=== PATIENT | female | born 2000 | race Hispanic/Latino ===

== ENCOUNTER 2019-05-01 20:06 | Emergency (ER) | payer OTHER ==
[2019-05-01 21:08] LABS: Absolute Lymphocytes (CBC) 2.8 K/uL (0.7-4.9); Basophils % 0.4 % (0-1.3); Hematocrit 36.2 % (36.0-45.0); Lymphocytes % 25.6 % (15.3-44.8); MPV 8.1 fL (7.6-11.3); RBC Red Blood Cell Count 4.15 M/uL (3.86-4.86)
[2019-05-01 21:42] LABS: Urine Blood TRACE (NEG); Urine Glucose NEGATIVE (NEG); Urine Protein NEGATIVE (NEG)
--- NOTE | 2019-05-01 21:51 | RAD REPORT ---
EXAM DESCRIPTION: US - Transvaginal OB - 05/01/2019 9:42 pm CLINICAL HISTORY: Abd cramping, ;Vaginal bleeding COMPARISON: No comparisons FINDINGS: A single gestational sac is seen within the uterus. The shape of the sac is within normal limits for gestational age. Mean sac diameter is 11 mm corresponding to 6 weeks 0 days gestational ag e. No yolk sac or embryo seen within the gestational sac. The placenta is not yet developed due to early gestational age. The maternal adnexa are within normal limits. Both ovaries are obscured by bowel gas. IMPRESSION: Six week 0 day gestational sac is seen without visualization of an embryo or yolk sac. T his could indicate early IUP versus blighted ovum. Serial HCG levels and follow-up sonography in 7-10 days is recommended.
[2019-05-01 22:02] LABS: BUN Blood Urea Nitrogen 15 mg/dL (7-18); Bicarbonate 25 mmol/L (21-32); Glucose Level 92 mg/dL (74-106); HCG, Quantitative 24152 mIU/mL (1-3); Potassium 3.7 mmol/L (3.5-5.1); Sodium Level 137 mmol/L (136-145)
--- NOTE | 2019-05-01 22:45 | EDPHYS ---
Physician Documentation [facility] Name: Marquita Jauregui Age: 18 yrs Sex: Female : 2000 Arrival Date: 05/01/2019 Time: 20:11 Bed 30 Private MD: ED Physician Jabier Price HPI: 05/01 20:59 This 18 yrs old Female presents to ER via Ambulatory with complaints of PAIN jr8 W/ -POSSIBLE 8 WKS. 20:59 The patient presents to the emergency department with abdominal pain, of the suprapubic jr8 area, that started today, described as crampy, vaginal bleeding, described as spotting. The estimated gestational age is 9 weeks. course: care: none, Leakage of Fluid: none appreciated, Ultrasound: the patient has not had an ultrasound, Risk/complications: no obvious risks or complications are appreciated. Previous pregnancies: the patient has never been . Associated signs and symptoms: The patient has no apparent associated signs or symptoms. The patient has not experienced similar symptoms in the past. The patient has not recently seen a physician. Stated that she noticed some yellow discharge today. Had one bout of spotting that now has resolved. Continues to have suprapubic pain. Denies urinary symptoms. 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 - Social history:: Smoking status: Patient/guardian denies using tobacco, Patient/guardian denies using alcohol, street drugs, IV drugs. - Ebola Screening: : No symptoms or risks identified at this time. ROS: 20:59 Eyes: Negative for injury, pain, redness, and discharge, ENT: Negative for injury, jr8 pain, and discharge, Neck: Negative for injury, pain, and swelling, Cardiovascular: Negative for chest pain, palpitations, and edema, Respiratory: Negative for shortness of breath, cough, wheezing, and pleuritic chest pain, Back: Negative for injury and pain, MS/Extremity: Negative for injury and deformity, Skin: Negative for injury, rash, and discoloration, Neuro: Negative for headache, weakness, numbness, tingling, and seizure. 20:59 Abdomen/GI: Positive for abdominal pain, abdominal cramps, Negative for nausea, vomiting, and diarrhea, abdominal distension. 20:59 : Positive for vaginal bleeding, vaginal discharge, Negative for vaginal itching. Exam: 20:59 Eyes: Pupils equal round and reactive to light, extra-ocular motions intact. Lids and jr8 lashes normal. Conjunctiva and sclera are non-icteric and not injected. Cornea within normal limits. Periorbital areas with no swelling, redness, or edema. ENT: Nares patent. No nasal discharge, no septal abnormalities noted. Tympanic membranes are normal and external auditory canals are clear. Oropharynx with no redness, swelling, or masses, exudates, or evidence of obstruction, uvula midline. Mucous membranes moist. Neck: Trachea midline, no thyromegaly or masses palpated, and no cervical lymphadenopathy. Supple, full range of motion without nuchal rigidity, or vertebral point tenderness. No Meningismus. Cardiovascular: Regular rate and rhythm with a normal S1 and S2. No gallops, murmurs, or rubs. Normal PMI, no JVD. No pulse deficits. Respiratory: Lungs have equal breath sounds bilaterally, clear to auscultation and percussion. No rales, rhonchi or wheezes noted. No increased work of breathing, no retractions or nasal flaring. Back: No spinal tenderness. No costovertebral tenderness. Full range of motion. Skin: Warm, dry with normal turgor. Normal color with no rashes, no lesions, and no evidence of cellulitis. MS/ Extremity: Pulses equal, no cyanosis. Neurovascular intact. Full, normal range of motion. Neuro: Awake and alert, GCS 15, oriented to person, place, time, and situation. Cranial nerves II-XII grossly intact. Motor strength 5/5 in all extremities. Sensory grossly intact. Cerebellar exam normal. Normal gait. 20:59 Abdomen/GI: Inspection: abdomen appears normal, Bowel sounds: active, all quadrants, Palpation: soft, in all quadrants, mild abdominal tenderness, in the suprapubic area, mass, is not appreciated, rebound tenderness, is not appreciated, voluntary guarding, is not appreciated, involuntary guarding, is not appreciated, no appreciated organomegaly, Indicators: McBurney's point is not tender, Martinez's sign is negative, Rovsing's sign is negative, Liver: tenderness, is not appreciated. 22:08 : Pelvic Exam: External exam: is normal, no appreciated Bartholin's cyst, no jr8 erythema, not excoriated, no evidence of foreign body, no lesions, no ulcerations, no warts seen, Speculum exam: scant bleeding, no cervicitis, os that is closed, white clump like discharge noted in vaginal canal , the nurse was present for the exam. Vital Signs: 20:40 BP 126 / 82; Pulse 89; Resp 16; Temp 99.7(O); Pulse Ox 100% ; lt1 22:11 BP 124 / 71; Pulse 85; Resp 18; Pulse Ox 100% ; mg2 23:28 BP 122 / 71; Pulse 80; Resp 18; Temp 98; Pulse Ox 100% on R/A; mg2 MDM: 20:31 Patient medically screened. jr8 22:41 Data reviewed: vital signs, nurses notes, lab test result(s), radiologic studies, jr8 ultrasound. Data interpreted: Pulse oximetry: on room air is 100 %. Interpretation: normal. Counseling: I had a detailed discussion with the patient and/or guardian regarding: the historical points, exam findings, and any diagnostic results supporting the discharge/admit diagnosis, lab results, radiology results, the need for outpatient follow up, an OB/Gyne specialist, to return to the emergency department if symptoms worsen or persist or if there are any questions or concerns that arise at home. ED course: Discussed results with patient. Need to f/u in one week for another US to determine early IUP vs. Bighted Ovum. Patient understood and would f/u or come back . 05/01 20:44 Order name: Quantitative Hcg; Complete Time: 22: 8 05/01 20:44 Order name: Abo/rh Typing; Complete Time: 22:39 8 05/01 20:44 Order name: Basic Metabolic Panel; Complete Time: 22: 8 05/01 20:44 Order name: CBC with Diff jr8 05/01 20:44 Order name: GC (GONORR/CHLAMYDIA) Probe [facility] 05/01 20:44 Order name: Wet Prep; Complete Time: 22:34 [facility] 05/01 20:44 Order name: Urine Test (obtain specimen); Complete Time: 21:33 [facility] 05/01 20:44 Order name: IV Saline Lock; Complete Time: 21:34 [facility] 05/01 21:04 Order name: Urine Dipstick--Ancillary (enter results); Complete Time: 21:43 mt 05/01 21:04 Order name: Urine --Ancillary (enter results); Complete Time: 21:43 mt 05/01 21:10 Order name: CBC with Automated Diff; Complete Time: 21:10 [facility] 05/01 21:11 Order name: US Transvaginal Ob; Complete Time: 22:07 [facility] 05/01 20:44 Order name: Labs collected and sent; Complete Time: 21:34 [facility] 05/01 20:44 Order name: NPO; Complete Time: 21:34 [facility] 05/01 20:44 Order name: Urine Dipstick-Ancillary (obtain specimen); Complete Time: 21:33 [facility] 05/01 20:44 Order name: Pelvic Exam Setup; Complete Time: 22:11 [facility] Administered Medications: 23:08 Drug: Rocephin (cefTRIAXone) 250 mg Route: IM; Site: right gluteus; mg2 23:28 Follow up: Response: No adverse reaction mg2 23:08 Drug: Zithromax 1 grams Route: PO; mg2 23:28 Follow up: Response: No adverse reaction mg2 Disposition: 05/01/19 22:44 Discharged to Home. Impression: Blighted ovum and nonhydatidiform mole - vs. Early IUP. - Condition is Stable. - Discharge Instructions: Threatened Miscarriage, Blighted Ovum. - Medication Reconciliation Form, Thank You Letter, Antibiotic Education, Prescription Opioid Use form. - Follow up: Private Physician; When: 1 week; Reason: Recheck today's complaints, Continuance of care, Re-evaluation by your physician. - Problem is new. - Symptoms have improved. Addendum: 05/03/2019 06:18 Co-signature as Attending Physician, Jabier Price MD I agree with the assessment and t w4 plan of care. Signatures: Dispatcher [employer] EDRomeo Salas PA PA jr8 Jabier Price MD MD tw4 Mandeep Wong, RN RN mg2 Corrections: (The following items were deleted from the chart) 05/01 23:31 22:44 05/01/2019 22:44 Discharged to Home. Impression: Blighted ovum and mg2 nonhydatidiform mole - vs. Early IUP. Condition is Stable. Forms are Medication Reconciliation Form, Thank You Letter, Antibiotic Education, Prescription Opioid Use. Follow up: Private Physician; When: 1 week; Reason: Recheck today's complaints, Continuance of care, Re-evaluation by your physician. Problem is new. Symptoms have improved. jr8
--- NOTE | 2019-05-01 22:45 | ER ---
Nurse's Notes [facility] Name: Marquita Jauregui Age: 18 yrs Sex: Female : 2000 Arrival Date: 05/01/2019 Time: 20:11 Bed 30 Private MD: Diagnosis: Blighted ovum and nonhydatidiform mole-vs. Early IUP Presentation: 05/01 20:44 Presenting complaint: Patient states: i have lower abdominal pain for 3 weeks now. i mg2 have spotting yesterday and yellowish dc today. been vomiting as well. Transition of care: patient was not received from another setting of care. Onset of symptoms was April 2019. Risk Assessment: Do you want to hurt yourself or someone else? Patient reports no desire to harm self or others. Initial Sepsis Screen: Does the patient meet any 2 criteria? No. Patient's initial sepsis screen is negative. Does the patient have a suspected source of infection? No. Patient's initial sepsis screen is negative. Care prior to arrival: None. 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 - Social history:: Smoking status: Patient/guardian denies using tobacco, Patient/guardian denies using alcohol, street drugs, IV drugs. - Ebola Screening: : No symptoms or risks identified at this time. Screenin:48 Abuse screen: Denies threats or abuse. Denies injuries from another. Nutritional mg2 screening: No deficits noted. Tuberculosis screening: No symptoms or risk factors identified. Fall Risk IV access (20 points). Assessment: 22:09 General: Appears in no apparent distress. comfortable, Behavior is calm, cooperative. mg2 Pain: Complains of pain in suprapubic area. Neuro: Level of Consciousness is awake, alert, obeys commands, Oriented to person, place, time, situation. Cardiovascular: Capillary refill < 3 seconds. Respiratory: Airway is patent Respiratory effort is even, unlabored, Respiratory pattern is regular, symmetrical. GI: No signs and/or symptoms were reported involving the gastrointestinal system. GI: Reports vomiting. : Reports discharge, from vagina that is yellow, vaginal bleeding that is spotty. EENT: No signs and/or symptoms were reported regarding the EENT system. Derm: Skin is intact, is healthy with good turgor, Skin is pink, warm \T\ dry. normal. Musculoskeletal: Circulation, motion, and sensation intact. Capillary refill < 3 seconds. 23:00 Reassessment: Patient appears in no apparent distress at this time. Patient and/or mg2 family updated on plan of care and expected duration. Pain level reassessed. Patient is alert, oriented x 3, equal unlabored respirations, skin warm/dry/pink. Vital Signs: 20:40 BP 126 / 82; Pulse 89; Resp 16; Temp 99.7(O); Pulse Ox 100% ; lt1 22:11 BP 124 / 71; Pulse 85; Resp 18; Pulse Ox 100% ; mg2 23:28 BP 122 / 71; Pulse 80; Resp 18; Temp 98; Pulse Ox 100% on R/A; mg2 ED Course: 20:11 Patient arrived in ED. jg7 20:31 Romeo Levy PA is PHCP. jr8 20:31 Jabier Price MD is Attending Physician. jr8 20:44 Mandeep Wong, RJ is Primary Nurse. mg2 20:46 Triage completed. mg2 20:47 Arm band placed on. mg2 21:30 Inserted saline lock: 20 gauge in right antecubital area, using aseptic technique. mg2 Blood collected. 21:43 US Transvaginal Ob In Process Unspecified. EDMS 22:07 Assist provider with pelvic exam: Set up pelvic tray. Performed by Romeo WEIR mg2 Specimens sent to lab. Patient tolerated. 22:08 Patient has correct armband on for positive identification. Pulse ox on. NIBP on. Door mg2 closed. Warm blanket given. 23:29 IV discontinued, intact, bleeding controlled, No redness/swelling at site. Pressure mg2 dressing applied. Administered Medications: 23:08 Drug: Rocephin (cefTRIAXone) 250 mg Route: IM; Site: right gluteus; mg2 23:28 Follow up: Response: No adverse reaction mg2 23:08 Drug: Zithromax 1 grams Route: PO; mg2 23:28 Follow up: Response: No adverse reaction mg2 Outcome: 22:44 Discharge ordered by MD. golden 23:29 Discharged to home ambulatory, with family. mg2 23:29 Condition: good 23:29 Discharge instructions given to patient, Instructed on discharge instructions, follow up and referral plans. Demonstrated understanding of instructions, follow-up care. 23:31 Patient left the ED. mg2 Signatures: Dispatcher [employer] EDMS Romeo Levy PA PA jr8 Mandeep Wong RN RN mg2 Oralia Higuera 1 Cele Barrerag7
[2019-05-01] MEDS ORDERED: AZITHROMYCIN 250 MG TAB ONE (22:49)
[2019-05-01] MEDS ORDERED: CEFTRIAXONE 250 MG/VIAL ONE (22:49)
[2019-05-01] MEDS ORDERED: WATER FOR INJ,STERILE 10 ML ONE (23:04)
[2019-05-02 00:54] VITALS: O2SAT 100
[2019-05-02 00:58] VITALS: BP 122/71; TEMP 98
[2019-05-04 19:24] LABS: C.trachomatis RNA,TMA Not Detected (Not Detected)
== END 2019-05-01 23:31 | disposition home or self-care (01) ==
LOC: ER 20:06
DX: O02.0 Blighted ovum and nonhydatidiform mole (principal); Z3A.09 9 weeks gestation of pregnancy
CPT/HCPCS: 85025; 80048; 36415; 86900; 81025; 86901; 87210; 84702; 81003; 87590; 87490; 76817; 96372; 99284; J0696

== ENCOUNTER 2019-05-08 09:54 | Emergency (ER) | payer OTHER ==
--- NOTE | 2019-05-08 16:10 | RAD REPORT ---
EXAM DESCRIPTION: US - Transvaginal Study Probe - 05/08/2019 3:59 pm CLINICAL HISTORY: VAG BLEEDING, +PREG COMPARISON: No comparisons FINDINGS: A single gestational sac is seen within the uterus. Gestational sac is slightly irregular in shape. Within the sac is a single vague appearing small pole estimated at 4 mm CRL. This is compatible with 6 weeks 1 day gestational age. No cardiac activity was seen despite prolonged evaluat ion. The placenta is not yet developed due to early gestational age. Maternal adnexa are gross unremarkable. Both ovaries were obscured by bowel gas. IMPRESSION: 4 mm embryo is suspected to be present, however no embryonic heart tones seen. This can still be a normal finding at this early gestational age advise correlation with serial HCG levels and follow-up sonography in 7-10 days.
--- NOTE | 2019-05-08 23:31 | EDPHYS ---
Physician Documentation [facility] Name: Marquita Jauregui Age: 18 yrs Sex: Female : 2000 Arrival Date: 05/08/2019 Time: 10:01 Bed 27 Private MD: ED Physician Luis Woodward HPI: 05/08 10:26 This 18 yrs old Female presents to ER via Ambulatory with complaints of repeat US, jmm .. 10:26 The patient presents with pelvic pain. Onset: The symptoms/episode began/occurred jmm gradually, 2 day(s) ago. Modifying factors: The symptoms are alleviated by nothing, the symptoms are aggravated by nothing. Associated signs and symptoms: Pertinent positives: vaginal discharge, Pertinent negatives: dysuria. This is a 18 year old female with no chronic medical conditions that presents to the ED with complaints of left lower pelvic pain. Patient was evaluated 2 days prior with a negative pelvic US. LMP 02/26/2019. Patient states pain has decreased since. Also complains of blood tinged discharge. Denies dysuria. . 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 - Social history:: Smoking status: Patient/guardian denies using tobacco. - Ebola Screening: : No symptoms or risks identified at this time. ROS: 10:26 Constitutional: Negative for fever, chills, and weight loss, Eyes: Negative for injury, jmm pain, redness, and discharge, ENT: Negative for injury, pain, and discharge, Neck: Negative for injury, pain, and swelling, Cardiovascular: Negative for chest pain, palpitations, and edema, Respiratory: Negative for shortness of breath, cough, wheezing, and pleuritic chest pain, Abdomen/GI: Negative for abdominal pain, nausea, vomiting, diarrhea, and constipation. 10:26 Skin: Negative for injury, rash, and discoloration, Neuro: Negative for headache, weakness, numbness, tingling, and seizure. 10:26 : Positive for vaginal discharge. 10:26 All other systems are negative. Exam: 10:26 Constitutional: This is a well developed, well nourished patient who is awake, alert, jmm and in no acute distress. Head/Face: atraumatic. Eyes: EOMI, no conjunctival erythema appreciated ENT: Moist Mucus Membranes Neck: Trachea midline, Supple Chest/axilla: Normal chest wall appearance and motion. Cardiovascular: Regular rate and rhythm. No edema appreciated Respiratory: Normal respirations, no respiratory distress appreciated 10:26 Back: Normal ROM Skin: General appearance color normal MS/ Extremity: Moves all extremities, no obvious deformities appreciated, no edema noted to the lower extremities Neuro: Awake and alert, normal gait Psych: Behavior is normal, Mood is normal, Patient is cooperative and pleasant 10:26 Abdomen/GI: Inspection: abdomen appears normal, Bowel sounds: normal, Palpation: abdomen is soft and non-tender, in all quadrants. Vital Signs: 10:03 BP 123 / 78; Pulse 87; Resp 16 S; Temp 98.7(O); Pulse Ox 100% on R/A; Weight 70.31 kg aa5 (R); Height 5 ft. 7 in. (170.18 cm) (R); Pain 5/10; 12:27 BP 116 / 75; Pulse 88; Resp 20; Pulse Ox 97% on R/A; aj1 10:03 Body Mass Index 24.28 (70.31 kg, 170.18 cm) aa5 MDM: 10:15 Patient medically screened. [facility] 12:05 Data reviewed: vital signs, nurses notes. Counseling: I had a detailed discussion with elvis the patient and/or guardian regarding: the historical points, exam findings, and any diagnostic results supporting the discharge/admit diagnosis, radiology results, the need for outpatient follow up, to return to the emergency department if symptoms worsen or persist or if there are any questions or concerns that arise at home. ED course: Us reveals IUP. Patient is advisewd to follow up with OBGYN. Patient is otherwise given strict return precautions. Patient understood and agrees with the plan of care. . Administered Medications: No medications were administered Disposition: 15:52 Co-signature as Attending Physician, Luis Woodward MD. ma2 Disposition: 05/08/19 12:14 Discharged to Home. Impression: Threatened . - Condition is Stable. - Discharge Instructions: Threatened Miscarriage. - Medication Reconciliation Form, Thank You Letter, Antibiotic Education, Prescription Opioid Use form. - Follow up: Private Physician; When: 2 - 3 days; Reason: Recheck today's complaints, Continuance of care, Re-evaluation by your physician. Signatures: Carmen Shine RN RN aj1 Shin Finn PA PA jmm Calderon, Audri, RN RN aa5 Luis Woodward MD MD ma2 Corrections: (The following items were deleted from the chart) 12:28 12:14 05/08/2019 12:14 Discharged to Home. Impression: Threatened . Condition aj1 is Stable. Forms are Medication Reconciliation Form, Thank You Letter, Antibiotic Education, Prescription Opioid Use. Follow up: Private Physician; When: 2 - 3 days; Reason: Recheck today's complaints, Continuance of care, Re-evaluation by your physician. elvis
--- NOTE | 2019-05-08 23:31 | ER ---
Nurse's Notes [facility] Name: Marquita Jauregui Age: 18 yrs Sex: Female : 2000 Arrival Date: 05/08/2019 Time: 10:01 Bed 27 Private MD: Diagnosis: Threatened Presentation: 05/08 10:04 Presenting complaint: Patient states: LLQ pain and vaginal bleeding. Reports being aa5 . Pt states "I was already seen here on but they couldn't see anything so they said to come back". Ax. None, Hx. None, Sx. Tumor removed from ovary. Transition of care: patient was not received from another setting of care. Onset of symptoms was April 2019. Risk Assessment: Do you want to hurt yourself or someone else? Patient reports no desire to harm self or others. Initial Sepsis Screen: Does the patient meet any 2 criteria? No. Patient's initial sepsis screen is negative. Does the patient have a suspected source of infection? No. Patient's initial sepsis screen is negative. Care prior to arrival: None. 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 - Social history:: Smoking status: Patient/guardian denies using tobacco. - Ebola Screening: : No symptoms or risks identified at this time. Screenin:16 Abuse screen: Denies threats or abuse. Denies injuries from another. Nutritional aj1 screening: No deficits noted. Tuberculosis screening: No symptoms or risk factors identified. 12:27 Fall Risk None identified. aj1 Assessment: 10:16 General: Appears in no apparent distress. comfortable, Behavior is calm, cooperative, aj1 appropriate for age. Pain: Denies pain. Neuro: Level of Consciousness is awake, alert, obeys commands, Oriented to person, place, time, situation. Cardiovascular: Patient's skin is warm and dry. Respiratory: Airway is patent Respiratory effort is even, unlabored, Respiratory pattern is regular, symmetrical. GI: No signs and/or symptoms were reported involving the gastrointestinal system. : Reports vaginal bleeding that is bright red, Patient reports she was seen here last week for the same issue and was told to come back for repeat ultrasound. EENT: No signs and/or symptoms were reported regarding the EENT system. Derm: No signs and/or symptoms reported regarding the dermatologic system. Skin is pink, warm \\T\\ dry. normal. Musculoskeletal: No signs and/or symptoms reported regarding the musculoskeletal system. Circulation, motion, and sensation intact. 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 11:15 Reassessment: Patient appears in no apparent distress at this time. No changes from aj1 previously documented assessment. Patient and/or family updated on plan of care and expected duration. Pain level reassessed. Patient is alert, oriented x 3, equal unlabored respirations, skin warm/dry/pink. 12:27 Reassessment: Patient appears in no apparent distress at this time. No changes from aj1 previously documented assessment. Patient and/or family updated on plan of care and expected duration. Pain level reassessed. Patient is alert, oriented x 3, equal unlabored respirations, skin warm/dry/pink. Vital Signs: 10:03 BP 123 / 78; Pulse 87; Resp 16 S; Temp 98.7(O); Pulse Ox 100% on R/A; Weight 70.31 kg aa5 (R); Height 5 ft. 7 in. (170.18 cm) (R); Pain 5/10; 12:27 BP 116 / 75; Pulse 88; Resp 20; Pulse Ox 97% on R/A; aj1 10:03 Body Mass Index 24.28 (70.31 kg, 170.18 cm) aa5 ED Course: 10:01 Patient arrived in ED. aa5 10:03 Arm band placed on. aa5 10:05 Triage completed. aa5 10:09 Shin Finn PA is PHCP. [facility] 10:09 Luis Woodward MD is Attending Physician. [facility] 10:16 Carmen Shine, RJ is Primary Nurse. aj1 10:16 Patient has correct armband on for positive identification. Bed in low position. Call aj1 light in reach. 10:16 No provider procedures requiring assistance completed. aj1 11:53 Ultrasound completed. Patient tolerated well. aa4 12:28 Patient did not have IV access during this emergency room visit. aj1 Administered Medications: No medications were administered Outcome: 12:14 Discharge ordered by MD. leal 12:28 Discharged to home ambulatory. aj1 12:28 Condition: good 12:28 Discharge instructions given to patient, Instructed on discharge instructions, follow up and referral plans. Demonstrated understanding of instructions, follow-up care. 12:28 Patient left the ED. aj1 Signatures: Carmen Shine RN RN aj1 Shin Finn PA PA jmm Frazier, Amanda aa4 Zulma West RN RN aa5 Key Reich RN RN ss Corrections: (The following items were deleted from the chart) 10:06 10:04 Presenting complaint: Patient states: LLQ pain and vaginal bleeding. Pt states "I aa5 was already seen here on but they couldn't see anything so they said to come back" aa5 10:06 10:04 Presenting complaint: Patient states: LLQ pain and vaginal bleeding. Pt states "I aa5 was already seen here on but they couldn't see anything so they said to come back". Ax. None, Hx. None, Sx. Tumor removed from ovary. aa5
== END 2019-05-08 12:28 | disposition home or self-care (01) ==
LOC: ER 12:28
DX: O20.0 Threatened abortion (principal); Z3A.01 Less than 8 weeks gestation of pregnancy
CPT/HCPCS: 76830; 99281

== ENCOUNTER 2019-05-14 18:16 | Emergency (ER) | payer OTHER ==
[2019-05-14 20:15] LABS: Absolute Lymphocytes (CBC) 2.3 K/uL (0.7-4.9); Basophils % 0.4 % (0-1.3); Hematocrit 38.2 % (36.0-45.0); Lymphocytes % 25.7 % (15.3-44.8); MPV 8.3 fL (7.6-11.3); RBC Red Blood Cell Count 4.33 M/uL (3.86-4.86)
[2019-05-14 20:30] LABS: Urine Blood 3+ (NEG); Urine Glucose NEGATIVE (NEG); Urine Protein NEGATIVE (NEG); Urine Specific Gravity >1.030 (1.005-1.030); Urine pH 5.5 (5.0-7.0)
[2019-05-14 20:51] LABS: BUN Blood Urea Nitrogen 10 mg/dL (7-18); Bicarbonate 25 mmol/L (21-32); Glucose Level 85 mg/dL (74-106); HCG, Quantitative 5547 mIU/mL (1-3); Potassium 3.9 mmol/L (3.5-5.1); Sodium Level 138 mmol/L (136-145)
--- NOTE | 2019-05-14 20:59 | ER ---
Nurse's Notes [facility] Name: Marquita Jauregui Age: 18 yrs Sex: Female : 2000 Arrival Date: 05/14/2019 Time: 18:18 Bed 28 Private MD: Diagnosis: Threatened Presentation: 05/14 18:44 Presenting complaint: Patient states: I have pain in my left lower abdomen, feels like sg a shocking feeling that comes and goes, reports vaginal bleeding with heavy flow, denies clots with bleeding, reports about 12 wks , no care at this time. Transition of care: patient was not received from another setting of care. Onset of symptoms was May 14, 2019. Risk Assessment: Do you want to hurt yourself or someone else? Patient reports no desire to harm self or others. Initial Sepsis Screen: Does the patient meet any 2 criteria? No. Patient's initial sepsis screen is negative. Does the patient have a suspected source of infection? No. Patient's initial sepsis screen is negative. Care prior to arrival: None. 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 - Social history:: Smoking status: Patient/guardian denies using tobacco. - Ebola Screening: : Patient negative for fever greater than or equal to 101.5 degrees Fahrenheit, and additional compatible Ebola Virus Disease symptoms Patient denies exposure to infectious person Patient denies travel to an Ebola-affected area in the 21 days before illness onset No symptoms or risks identified at this time. Screenin:19 Abuse screen: Denies threats or abuse. Denies injuries from another. Nutritional rv screening: No deficits noted. Tuberculosis screening: No symptoms or risk factors identified. Fall Risk None identified. Assessment: 19:18 Obstetrical Assessment: General assessment: awake and alert, respirations even and rv unlabored, Patient reports nausea, Abdominal pain. General: Appears in no apparent distress. comfortable, Behavior is calm, cooperative. Pain: Complains of pain in left lower quadrant. Neuro: Level of Consciousness is awake, alert, obeys commands, Oriented to person, place, time, situation. Cardiovascular: Patient's skin is warm and dry. Respiratory: Airway is patent. : Reports vaginal bleeding that is. Vital Signs: 18:42 BP 113 / 66; sg 18:42 Pulse 70; Resp 16; Temp 98.0; Pulse Ox 99% on R/A; Pain 6/10; sg 21:14 BP 115 / 74; Pulse 89; Resp 18; Pulse Ox 99% on R/A; rv ED Course: 18:18 Patient arrived in ED. mr 18:21 Vaishnavi Ewing [facility]-C [facility]. kb 18:21 Deepak Vincent MD is Attending Physician. kb 18:42 Arm band placed on. sg 18:45 Triage completed. sg 19:07 Gorge Velarde, RN is Primary Nurse. rv 19:19 Urine collected: clean catch specimen, clear. sg 19:20 Patient has correct armband on for positive identification. Bed in low position. Call rv light in reach. Side rails up X 1. Pulse ox on. NIBP on. 19:55 Inserted saline lock: 20 gauge in left antecubital area, using aseptic technique. Blood rv collected. 20:57 US Transvaginal Ob In Process Unspecified. EDMS 21:12 No provider procedures requiring assistance completed. IV discontinued, intact, rv bleeding controlled, No redness/swelling at site. Pressure dressing applied. Administered Medications: No medications were administered Point of Care Testing: Urine : 21:14 hCG Reading: Positive; Control Reading: Positive; rv Outcome: 20:58 Discharge ordered by MD. kb 21:13 Discharged to home ambulatory, with family. rv 21:13 Condition: good 21:13 Discharge instructions given to patient, Instructed on discharge instructions, follow up and referral plans. Demonstrated understanding of instructions, follow-up care. 21:17 Patient left the ED. rv Signatures: Dispatcher [employer] EDMS Vaishnavi Ewing FNP-C FNP-Ckb Gay, Steven RN RN Liyah Li mr Gorge Velarde, RJ RN rv
--- NOTE | 2019-05-14 21:00 | EDPHYS ---
Physician Documentation [facility] Name: Marquita Jauregui Age: 18 yrs Sex: Female : 2000 Arrival Date: 05/14/2019 Time: 18:18 Bed 28 Private MD: ED Physician Deepak Vincent HPI: 05/14 20:55 This 18 yrs old Female presents to ER via Ambulatory with complaints of kb Vaginal Bleeding, + Preg <12wks. 20:55 The patient presents to the emergency department with abdominal pain, of the left lower kb quadrant, vaginal bleeding, that is moderate. course: care: none, Leakage of Fluid: none appreciated, Ultrasound: the patient had an ultrasound, which was normal, Risk/complications: no obvious risks or complications are appreciated. Previous pregnancies: the patient has never been . Associated signs and symptoms: Pertinent positives: abdominal pain, vaginal bleeding. The patient has not experienced similar symptoms in the past. The patient has not recently seen a physician. 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 - Social history:: Smoking status: Patient/guardian denies using tobacco. - Ebola Screening: : Patient negative for fever greater than or equal to 101.5 degrees Fahrenheit, and additional compatible Ebola Virus Disease symptoms Patient denies exposure to infectious person Patient denies travel to an Ebola-affected area in the 21 days before illness onset No symptoms or risks identified at this time. ROS: 20:54 Constitutional: Negative for fever, chills, and weight loss, Neck: Negative for injury, kb pain, and swelling, Cardiovascular: Negative for chest pain, palpitations, and edema, Respiratory: Negative for shortness of breath, cough, wheezing, and pleuritic chest pain, Abdomen/GI: Negative for abdominal pain, nausea, vomiting, diarrhea, and constipation, Back: Negative for injury and pain, MS/Extremity: Negative for injury and deformity, Skin: Negative for injury, rash, and discoloration, Neuro: Negative for headache, weakness, numbness, tingling, and seizure. 20:54 : Positive for vaginal bleeding. Exam: 20:54 Constitutional: This is a well developed, well nourished patient who is awake, alert, kb and in no acute distress. Head/Face: Normocephalic, atraumatic. Neck: Trachea midline, no thyromegaly or masses palpated, and no cervical lymphadenopathy. Supple, full range of motion without nuchal rigidity, or vertebral point tenderness. No Meningismus. Chest/axilla: Normal chest wall appearance and motion. Nontender with no deformity. No lesions are appreciated. Cardiovascular: Regular rate and rhythm with a normal S1 and S2. No gallops, murmurs, or rubs. Normal PMI, no JVD. No pulse deficits. Respiratory: Lungs have equal breath sounds bilaterally, clear to auscultation and percussion. No rales, rhonchi or wheezes noted. No increased work of breathing, no retractions or nasal flaring. Back: No spinal tenderness. No costovertebral tenderness. Full range of motion. Skin: Warm, dry with normal turgor. Normal color with no rashes, no lesions, and no evidence of cellulitis. MS/ Extremity: Pulses equal, no cyanosis. Neurovascular intact. Full, normal range of motion. Neuro: Awake and alert, GCS 15, oriented to person, place, time, and situation. Cranial nerves II-XII grossly intact. Motor strength 5/5 in all extremities. Sensory grossly intact. Cerebellar exam normal. Normal gait. 20:54 Abdomen/GI: Inspection: abdomen appears normal, Bowel sounds: normal, Palpation: soft, in all quadrants, moderate abdominal tenderness, in the left lower quadrant. Vital Signs: 18:42 BP 113 / 66; sg 18:42 Pulse 70; Resp 16; Temp 98.0; Pulse Ox 99% on R/A; Pain 6/10; sg 21:14 BP 115 / 74; Pulse 89; Resp 18; Pulse Ox 99% on R/A; rv MDM: 19:09 Patient medically screened. kb 20:54 Data reviewed: vital signs, nurses notes. Data interpreted: Pulse oximetry: on room air kb is 99 %. Interpretation: normal. Counseling: I had a detailed discussion with the patient and/or guardian regarding: the historical points, exam findings, and any diagnostic results supporting the discharge/admit diagnosis, lab results, radiology results, the need for outpatient follow up, an OB/Gyne specialist, to return to the emergency department if symptoms worsen or persist or if there are any questions or concerns that arise at home. 05/14 19:11 Order name: Urine Dipstick--Ancillary (enter results); Complete Time: 20:32 ar5 05/14 19:11 Order name: Urine --Ancillary (enter results); Complete Time: 20:32 ar5 05/14 19:52 Order name: Quantitative Hcg; Complete Time: 20:53 kb 05/14 19:52 Order name: Basic Metabolic Panel; Complete Time: 20:53 kb 05/14 19:52 Order name: CBC with Diff; Complete Time: 20:30 kb 05/14 19:52 Order name: US Transvaginal Ob kb 05/14 19:09 Order name: Urine Dipstick-Ancillary (obtain specimen); Complete Time: 19:10 kb 05/14 19:09 Order name: Urine Test (obtain specimen); Complete Time: 19:10 kb 05/14 19:52 Order name: IV Saline Lock; Complete Time: 19:55 kb 05/14 19:52 Order name: Labs collected and sent; Complete Time: 19:55 kb 05/14 19:52 Order name: NPO; Complete Time: 19:55 kb Administered Medications: No medications were administered Point of Care Testing: Urine : 21:14 hCG Reading: Positive; Control Reading: Positive; rv Disposition: 05/14/19 20:58 Discharged to Home. Impression: Threatened . - Condition is Stable. - Discharge Instructions: Threatened Miscarriage, [id number], Pelvic Rest. - Medication Reconciliation Form, Thank You Letter, Antibiotic Education, Prescription Opioid Use form. - Follow up: Emergency Department; When: As needed; Reason: Worsening of condition. Follow up: Private Physician; When: 2 - 3 days; Reason: Recheck today's complaints, Continuance of care, Re-evaluation by your physician. Addendum: 05/21/2019 10:48 Co-signature as Attending Physician, Deepak Vincent MD I agree with the assessment and c muhammad plan of care. Signatures: Dispatcher [employer] Vaishnavi Casey, BABS-C BABS-Ckb Soto, Gwyn, RN RN Deepak Alonzo MD MD cha Vicente, Ronaldo, RN RN rv Corrections: (The following items were deleted from the chart) 05/14 20:57 20:55 1, 0, Living 0, LMP 02/27/2019 kb kb 21:17 20:58 05/14/2019 20:58 Discharged to Home. Impression: Threatened . Condition rv is Stable. Forms are Medication Reconciliation Form, Thank You Letter, Antibiotic Education, Prescription Opioid Use. Follow up: Emergency Department; When: As needed; Reason: Worsening of condition. Follow up: Private Physician; When: 2 - 3 days; Reason: Recheck today's complaints, Continuance of care, Re-evaluation by your physician. kb
--- NOTE | 2019-05-14 21:11 | RAD REPORT ---
EXAM DESCRIPTION: US - Transvaginal OB - 05/14/2019 8:57 pm CLINICAL HISTORY: with pelvic pain and vaginal bleeding COMPARISON: May 01, 2019 FINDINGS: The uterus measures 10 x 6 x 7 centimeters. A gestational sac measures 3 x 1.3 x 3.3 cent imeters. A echogenic structure measuring 3 millimeters is present probably a pole. Cardiac acti vity is not seen. Neither ovary was visualized secondary to overlying bowel gas. The right and the left adnexal unremar kable No significant free fluid is seen. IMPRESSION: These findings are suspicious for a failed . However, it is still possible that this is a viable intrauterine in which the cardiac activity is not yet seen secondary to t he early gestation. It is recommended that the patient have serial beta HCG levels as well as a follo w-up ultrasound in 1 week for re-evaluation
[2019-05-14 22:41] VITALS: TEMP 98; O2SAT 99
[2019-05-14 22:42] VITALS: BP 115/74
== END 2019-05-14 21:17 | disposition home or self-care (01) ==
LOC: ER 18:16
DX: O20.0 Threatened abortion (principal); Z3A.12 12 weeks gestation of pregnancy
CPT/HCPCS: 36415; 76817; 80048; 81003; 81025; 84702; 85025; 99284

== ENCOUNTER 2019-05-16 11:29 | Emergency (ER) | payer OTHER ==
[2019-05-16 12:32] LABS: Absolute Lymphocytes (CBC) 1.3 K/uL (0.7-4.9); Basophils % 0.2 % (0-1.3); Hematocrit 37.2 % (36.0-45.0); Lymphocytes % 14.4 % (15.3-44.8); MPV 8.3 fL (7.6-11.3); RBC Red Blood Cell Count 4.26 M/uL (3.86-4.86)
[2019-05-16 12:54] LABS: BUN Blood Urea Nitrogen 7 mg/dL (7-18); Bicarbonate 27 mmol/L (21-32); Glucose Level 95 mg/dL (74-106); HCG, Quantitative 3307 mIU/mL (1-3); Potassium 3.6 mmol/L (3.5-5.1); Sodium Level 139 mmol/L (136-145)
--- NOTE | 2019-05-16 15:34 | RAD REPORT ---
EXAM DESCRIPTION: US - Transvaginal Study Probe - 05/16/2019 1:59 pm CLINICAL HISTORY: Vaginal bleeding, positive test COMPARISON: May 08, 2019 TECHNIQUE: Endovaginal sonography was performed. FINDINGS: The previously seen intrauterine gestational sac is no longer present. No sac remnant is i dentified. Endometrium is thickened. Left ovary and left adnexa normal. Right ovary is identified but less distinct. No adnexal masses to suspect ectopic . No blood or fluid in the cul de sac. IMPRESSION: Previously detailed gestational sac is no longer identified. There is no sac remnant or other findings for viable IUP. Thickened endometrium. No significant hemorrhagic material or retained products of conception seen. F ollow-up can be obtained as warranted. No ovarian or adnexal finding.
--- NOTE | 2019-05-16 15:43 | ER ---
Nurse's Notes [facility] Name: Marquita Jauregui Age: 18 yrs Sex: Female : 2000 Arrival Date: 05/16/2019 Time: 11:32 Bed 17 Private MD: Diagnosis: Complete or unspecified spontaneous without complication Presentation: 05/16 11:37 Presenting complaint: Patient states: pt was about 7 weeks and today had sv "something in the toilet paper and I think I'm having a miscarriage." c/o abd cramping and vaginal bleeding. Transition of care: patient was not received from another setting of care. Onset of symptoms was May 16, 2019. Risk Assessment: Do you want to hurt yourself or someone else? Patient reports no desire to harm self or others. Care prior to arrival: None. 11:37 Method Of Arrival: Wheelchair sv 11:37 Acuity: COLUMBA 3 sv Historical: - Allergies: 11:40 No Known Allergies; sv - PMHx: 11:40 None; sv - PSHx: 11:40 None; sv - Social history:: Patient/guardian denies using alcohol, street drugs, The patient lives with family. - Family history:: not pertinent. Screenin:00 Abuse screen: Denies threats or abuse. Denies injuries from another. Nutritional sg screening: No deficits noted. Tuberculosis screening: No symptoms or risk factors identified. Never had TB. Fall Risk None identified. Assessment: 12:00 General: Appears in no apparent distress. well groomed, well developed, well nourished, sg Behavior is calm, cooperative, appropriate for age. Pain: Complains of pain in suprapubic area Quality of pain is described as aching. Neuro: Level of Consciousness is awake, alert, obeys commands, Oriented to person, place, time, situation. Cardiovascular: Patient's skin is warm and dry. Chest pain is denied. Respiratory: Airway is patent Respiratory effort is even, unlabored, Respiratory pattern is regular, symmetrical. GI: Abdomen is round non-distended. : Reports pain in suprapubic area vaginal bleeding that is bright red, with clots, heavy flow. EENT: No signs and/or symptoms were reported regarding the EENT system. Derm: Skin is intact, is healthy with good turgor, Skin is dry, Skin is pale, Skin temperature is warm. Musculoskeletal: Circulation, motion, and sensation intact. Range of motion: intact in all extremities. 13:20 Reassessment: pt ambulatory to ER restroom, pt reports having passed a large blood sg cloth, reports feeling dizzy, VSS, notified, awaiting ultrasound at this time. 14:00 Reassessment: Patient appears in no apparent distress at this time. Patient and/or sg family updated on plan of care and expected duration. Pain level reassessed. Patient is alert, oriented x 3, equal unlabored respirations, skin warm/dry/pink. Vital Signs: 11:40 BP 135 / 74; Pulse 100; Resp 20; Temp 98.4; Pulse Ox 100% ; Weight 72.57 kg; Height 5 sv ft. 7 in. (170.18 cm); 14:00 BP 108 / 72; Pulse 78; Resp 18; Temp 98.4; Pulse Ox 100% on R/A; sg 11:40 Body Mass Index 25.06 (72.57 kg, 170.18 cm) sv ED Course: 11:32 Patient arrived in ED. mr 11:37 Arm band placed on. sv 11:40 Triage completed. sv 11:41 Luis Woodward MD is Attending Physician. ma2 11:58 Gwyn Soto, RJ is Primary Nurse. sg 12:13 Initial lab(s) drawn, by ny, sent to lab. Inserted saline lock: 22 gauge in right sg antecubital area, using aseptic technique. Blood collected. 12:30 Patient has correct armband on for positive identification. Bed in low position. Call sg light in reach. Pulse ox on. NIBP on. Warm blanket given. Head of bed elevated. 14:00 Transvaginal Study Probe In Process Unspecified. EDMS 14:45 Diet: Patient given juice. Patient given water. Tolerated well. sg 16:10 No provider procedures requiring assistance completed. IV discontinued, intact, sg bleeding controlled, No redness/swelling at site. Pressure dressing applied. Administered Medications: No medications were administered Outcome: 15:42 Discharge ordered by . ma2 16:10 Discharged to home ambulatory, with family. sg 16:10 Condition: good 16:10 Instructed on discharge instructions, follow up and referral plans. medication usage, safety practices, Demonstrated understanding of instructions, follow-up care. 16:16 Patient left the ED. iw Signatures: Dispatcher [employer] EDBeba Austin RN RN sv Gay, Steven, RN RN sg Rivera, Mary mr Williams, RJ Dallas RN, Mohammad, MD MD ma2
--- NOTE | 2019-05-16 15:44 | EDPHYS ---
Physician Documentation [facility] Name: Marquita Jauregui Age: 18 yrs Sex: Female : 2000 Arrival Date: 05/16/2019 Time: 11:32 Bed 17 Private MD: ED Physician Luis Woodward HPI: 05/16 15:15 This 18 yrs old Female presents to ER via Wheelchair with complaints of ma2 Miscarriage. 15:15 The patient presents with abdominal pain in the lower abdomen. Onset: The ma2 symptoms/episode began/occurred gradually, 1 week(s) ago. Associated signs and symptoms: Pertinent negatives: anorexia, constipation, dysuria, shortness of breath, vomiting blood. Severity of pain: At its worst the pain was mild in the emergency department the pain is unchanged. The patient has not experienced similar symptoms in the past. primigravisa here with complete and abdominal pain that is improving . Historical: - Allergies: 11:40 No Known Allergies; sv - PMHx: 11:40 None; sv - PSHx: 11:40 None; sv - Social history:: Patient/guardian denies using alcohol, street drugs, The patient lives with family. - Family history:: not pertinent. ROS: 15:15 Constitutional: Negative for fever, chills, and weight loss. ma2 15:15 All other systems are negative. Exam: 15:15 Constitutional: This is a well developed, well nourished patient who is awake, alert, ma2 and in no acute distress. Chest/axilla: Normal chest wall appearance and motion. Nontender with no deformity. No lesions are appreciated. Cardiovascular: Regular rate and rhythm with a normal S1 and S2. No gallops, murmurs, or rubs. Normal PMI, no JVD. No pulse deficits. Respiratory: Lungs have equal breath sounds bilaterally, clear to auscultation and percussion. No rales, rhonchi or wheezes noted. No increased work of breathing, no retractions or nasal flaring. Abdomen/GI: Soft, non-tender, with normal bowel sounds. No distension or tympany. No guarding or rebound. No evidence of tenderness throughout. Back: No spinal tenderness. No costovertebral tenderness. Full range of motion. Female : Normal external genitalia. Skin: Warm, dry with normal turgor. Normal color with no rashes, no lesions, and no evidence of cellulitis. MS/ Extremity: Pulses equal, no cyanosis. Neurovascular intact. Full, normal range of motion. Neuro: Awake and alert, GCS 15, oriented to person, place, time, and situation. Cranial nerves II-XII grossly intact. Motor strength 5/5 in all extremities. Sensory grossly intact. Cerebellar exam normal. Normal gait. Vital Signs: 11:40 BP 135 / 74; Pulse 100; Resp 20; Temp 98.4; Pulse Ox 100% ; Weight 72.57 kg; Height 5 sv ft. 7 in. (170.18 cm); 14:00 BP 108 / 72; Pulse 78; Resp 18; Temp 98.4; Pulse Ox 100% on R/A; sg 11:40 Body Mass Index 25.06 (72.57 kg, 170.18 cm) sv MDM: 11:41 Patient medically screened. ma2 15:15 Differential diagnosis: non-specific abd pain, complete vs rpoc, unlilkey ma2 ectopic p. Data reviewed: vital signs, nurses notes. Counseling: I had a detailed discussion with the patient and/or guardian regarding: the historical points, exam findings, and any diagnostic results supporting the discharge/admit diagnosis, the presence of at least one elevated blood pressure reading (>120/80) during this emergency department visit, the need for outpatient follow up. ED course: bhcg is trending down, however not zero, she needs f/u with ob to recheck hcg. 05/16 11:44 Order name: Quantitative Hcg; Complete Time: 13:10 sd2 05/16 11:44 Order name: Abo/rh Typing; Complete Time: 13:10 sd2 05/16 11:44 Order name: Basic Metabolic Panel; Complete Time: 13:10 ma2 05/16 11:44 Order name: CBC with Diff; Complete Time: 13:10 sd2 05/16 12:58 Order name: Transvaginal Study Probe; Complete Time: 15:41 EDMS 05/16 11:44 Order name: IV Saline Lock; Complete Time: 12:13 ma2 05/16 11:44 Order name: Labs collected and sent; Complete Time: 12:13 ma2 05/16 11:44 Order name: NPO; Complete Time: 12:13 ma2 Administered Medications: No medications were administered Disposition: 05/16/19 15:42 Discharged to Home. Impression: Complete or unspecified spontaneous without complication. - Condition is Stable. - Discharge Instructions: Miscarriage, [id number]. - Prescriptions for Tylenol- Codeine #3 300-30 mg Oral Tablet - take 2 tablet by ORAL route every 6 hours As needed; 30 tablet. - Medication Reconciliation Form, Thank You Letter, Antibiotic Education, Prescription Opioid Use form. - Work release form (05/16/19 16:17). iw - Follow up: Private Physician; When: Tomorrow; Reason: Continuance of care. - Notes: follow up with your OB for repeat bHCG level and to rule out retained product of conception and ectopic Signatures: Dispatcher [employer] EDBeba Austin, Celena Zhang RN, RN RN iw Alzahri, Mohammad, MD MD ma2 Corrections: (The following items were deleted from the chart) 12:58 11:45 OB Complete+[email or web address].RAD.BRZ ordered. [facility] EDLA 16:16 15:42 05/16/2019 15:42 Discharged to Home. Impression: Complete or unspecified iw spontaneous without complication. Condition is Stable. Discharge Instructions: Miscarriage, [id number]. Prescriptions for Tylenol-Codeine #3 300-30 mg Oral Tablet - take 2 tablet by ORAL route every 6 hours As needed; 30 tablet. and Forms are Medication Reconciliation Form, Thank You Letter, Antibiotic Education, Prescription Opioid Use. Follow up: Private Physician; When: Tomorrow; Reason: Continuance of care. ma2
[2019-05-16 16:22] VITALS: TEMP 98.4; O2SAT 100
[2019-05-16 16:23] VITALS: BP 108/72
== END 2019-05-16 16:16 | disposition home or self-care (01) ==
LOC: ER 11:29
DX: O03.9 Complete or unspecified spontaneous abortion without complication (principal); Z3A.01 Less than 8 weeks gestation of pregnancy
CPT/HCPCS: 36415; 76830; 80048; 84702; 85025; 86900; 86901; 99284

== ENCOUNTER 2023-09-11 14:14 | Emergency (ER) | payer BC ==
--- OUTSIDE RECORDS SUMMARY | 2023-09-11 14:19 | XMS REPORT | Continuity of Care Document ---
Author Name Unknown Address [address] [facility] [address] [place] [address] [facility] Address [address] [facility] [address] [place] [address] Care Team Providers Care Cable Rigger Name Role Phone TRACY BARNES Primary Care Physician JAYLA Osborne Attending Clinician Jayla Patel CNM Attending Clinician [phone] HELEN METZ Attending Clinician HELEN Lancaster Attending Clinician TRACY Bansal Attending Clinician Unavail ousmane Barnes Tracy KRISHNA Attending Clinician + Doctor Unassigned, [place] Attending Clinician U Dhiraj Reno DO Attending Clinician [phone] [facility]ending [facility]ician Keira Poon MD Attending Clinician [phone] Jonatan Cevallos Attending Clinician [phone] JONATAN BATES Attending Clinician Lisette walter [facility] Attending Clinician Unavailable Ultrasound, [facility] Attending Clinician Jayden Robertson MD Attending Clinician [phone] [facility]ending [facility]ician Unavailable 5, [facility] Room Attending Clinician Rima Garza Attending Clinician [phone] SEBASTIAN PAIGE Attending Clinician Keira Barnes MD Admitting Clinician Payers Payer Name Policy Type Policy Number Effective Date Expirati on Date Source [employer] MEDICAID [id number] 2019 00:00:00 [facility] [id number] 2023 00:00:00 Problems Condition Name Condition Details Condition Category Status Onset Date Resolution Date Last Treatment Date Treating Clinician Comments Source Other general counseling and advice for contracept amanda management Other general counseling and advice for contracept amanda management Disease Active 07-04 00:00: 00 [facility] Nexplanon removal Nexplanon removal Disease Active 07-04 00:00: 00 [facility] care and examinatio n of lactating mother care and examinatio n of lactating mother Disease Active 06-06 00:00: 00 [facility] 38 weeks gestation of 38 weeks gestation of Disease Active 2019-05 00:00: 00 [facility] Obesity (BMI 30-39.9) Obesity (BMI 30-39.9) Disease Active 2019-05 00:00: 00 [facility] Gestationa l hypertensi on Gestationa l hypertensi on Disease Active 2019-05 00:00: 00 [facility] Gestationa l hypertensi on Gestationa l hypertensi on Disease Active 2019-05 00:00: 00 [facility] Abdominal pain, epigastric Abdominal pain, epigastric Disease Active 2019-05 00:00: 00 [facility] Elevated blood pressure reading without diagnosis of hypertensi on Elevated blood pressure reading without diagnosis of hypertensi on Disease Active 2019-05 00:00: 00 [facility] Pain of round ligament affecting , antepartum Pain of round ligament affecting , antepartum Disease Active 2019-0512 00:00: 00 [facility] BV (bacterial vaginosis) BV (bacterial vaginosis) Disease Active 01-15 00:00: 00 [facility] Susceptibl e to varicella (non-immun e), currently Susceptibl e to varicella (non-immun e), currently Disease Active 10-28 00:00: 00 Overview: Formattin g of this note might be different from the original. Address pp [facility] Supervisio n of high-risk Supervisio n of high-risk Disease Active 10-25 00:00: 00 [facility] History of miscarriag e History of miscarriag e Disease Active 10-25 00:00: 00 [facility] History of removal of cyst History of removal of cyst Disease Active 10-25 00:00: 00 Overview: Formattin g of this note might be different from the original. Ovarian cyst in 2012 [facility] Allergies, Adverse Reactions, Alerts Allergy Name Allergy Type Status Severity Reaction(s) Onset Date Inactive Date Treating Clinician Comments Source NO KNOWN ALLERGIE S Drug Class Active [facility] Social History Social Habit Start Date Stop Date Quantity Comments Source ASSERTION 2019-08-31 00:00:[address] [facility] intake 2023-08-09 00:00:00 2023-08-09 00:00:00 Ex-drinker (finding) [facility] History of Social function 2023-08-09 00:00:00 2023-08-09 00:00:[address] [facility] Tobacco use and exposure 2023-08-09 00:00:00 2023-08-09 00:00:00 Smokeless tobacco non-user [facility] Exposure to SARS-CoV-2 (event) 2020-06-18 00:00:00 2020-07-18 13:52:[address] [facility] Sex Assigned At 2000 00:00:00 2000 00:00:[address] [facility] Smoking Status Start Date Stop Date Source Never smoked tobacco [facility] Medications Ordered Medication Name Filled Medication Name Start Date Stop Date Current Medication? Ordering Clinician Indication Dosage Frequency Signature (SIG) Comments Components Source metroNIDAZO LE 500 mg tablet 3-08 00:00: 00 08-08 00:00 :00 No [id number] 500mg Take 1 tablet by mouth 2 (two) times daily. [facility] etonogestre L (NEXPLANON) implant 68 mg 07-04 23:15: 00 07-04 22:03 :00 No 68mg [facility] vit/iron fum/folic ac ( 1 + 1 ORAL) 2019-05 16:56: 47 05-13 00:00 :00 No Take by mouth. [facility] varicella virus vaccine live (VARIVAX (PF)) injection 0.5 mL 2019-05 12:49: 50 05-13 17:52 :00 No .5mL 0.5 mL, Subcutaneo us, ONCE-PRIOR TO DISCHARGE, 1 dose, Starting Tue05/13/20 at 0649, Until Discontinu ed, Routine, Give vaccine prior to discharge [facility] vitamin w/FA tablet 2019-05 00:00: 00 Yes [id number] 1{tbl} Take 1 tablet by mouth daily. [facility] ibuprofen 600 mg tablet 2019-05 00:00: 00 08-08 00:00 :00 No [id number] 600mg Take 1 tablet by mouth every 6 (six) hours as needed for Pain (scale 4-6). [facility] simethicone 80 mg chewable tablet 2019-05 00:00: 00 08-08 00:00 :00 No [id number] 160mg Take 2 tablets by mouth after meals and at bedtime as needed for Gas. [facility] vitamin w/FA tablet 2019-05 00:00: 00 08-08 00:00 :00 No [id number] 1{tbl} Take 1 tablet by mouth daily. [facility] docusate calcium 240 mg capsule 2019-05 00:00: 00 08-08 00:00 :00 No [id number] 240mg Take 1 capsule by mouth once daily as needed for Constipati on. [facility] ferrous sulfate 325 mg (65 mg iron) tablet 2019-05 00:00: 00 08-08 00:00 :00 No [id number] 325mg Take 1 tablet by mouth 2 (two) times daily. [facility] acetaminoph en 325 mg tablet 2019-05 00:00: 00 05-14 05:59 :00 No [id number] 650mg Take 2 tablets by mouth every 6 (six) hours as needed for Pain (scale 1-3). [facility] rho(D) immune globulin (RHOGAM) syringe 300 mcg 2019-05 16:20: 21 Yes 300ug 300 mcg, Intramuscu lar, ONCE, For 1 dose, Conditiona l, Routine [facility] ondansetron (ZOFRAN (PF)) injection 4 mg 2019-05 16:20: 17 Yes 4mg 4 mg, Slow IV Push, Q8HPRN, Starting Tue05/12/20 at 1020, Until Discontinu ed, Routine, Nausea and Vomiting (N/V) [facility] simethicone (GAS RELIEF (SIMETHICON E)) chewable tablet 160 mg 2019-05 16:20: 17 Yes 160mg 160 mg, Oral, PC+HSPRN, Starting Tue05/12/20 at 1020, Until Discontinu ed, Routine, Gas [facility] magnesium hydroxide (MILK OF MAGNESIA) 400 mg/5 mL suspension 30 mL 2019-05 16:20: 17 Yes 30mL 30 mL, Oral, QDAILYPRN, Starting Tue05/12/20 at 1020, Until Discontinu ed, Routine, Constipati on [facility] ibuprofen (IBU) tablet 600 mg 2019-05 16:20: 16 Yes 600mg 600 mg, Oral, Q6HPRN, Starting Tue05/12/20 at 1020, Until Discontinu ed, Routine, Pain (scale 4-6) [facility] acetaminoph en (TYLENOL) tablet 650 mg 2019-05 16:20: 16 Yes 650mg 650 mg, Oral, Q6HPRN, Starting Tue05/12/20 at 1020, Until Discontinu ed, Routine, Pain (scale 1-3) [facility] diphenhydrA MINE (BENADRYL) tablet 25 mg 2019-05 16:20: 16 Yes 25mg 25 mg, Oral, Q6HPRN, Starting Tue05/12/20 at 1020, Until Discontinu ed, Routine, Sleep, Itching [facility] diphenhydrA MINE-0.9 % sod.chlr (BENADRYL) 25 mg/50 mL piggyback 25 mg 2019-05 16:20: 16 Yes 25mg 25 mg, IV Piggyback, Administer over 30 Minutes, Q6HPRN, Starting Tue05/12/20 at 1020, Until Discontinu ed, Routine, Itching [facility] docusate calcium (SURFAK) capsule 240 mg 2019-05 16:20: 16 Yes 240mg 240 mg, Oral, QDAILYPRN, Starting Tue05/12/20 at 1020, Until Discontinu ed, Routine, Constipati on [facility] benzocaine- menthol (DERMOPLAST ) 20-0.5 % topical spray 2019-05 16:20: 16 Yes Topical, PRN, Starting Tue05/12/20 at 1020, Until Discontinu ed, Routine, Perineum discomfort [facility] LR 1000 mL + oxytocin 20 units IV Solution 2019-05 15:00: 00 05-12 15:00 :00 No at 125 mL/hr, IV Infusion, ONCE, 1 dose, Tue05/12/20 at 0900, Routine [facility] sodium citrate-cit aria acid (BICITRA) 500-334 mg/5 mL solution 30 mL 2019-05 07:41: 03 05-12 09:27 :00 No 30mL 30 mL, Oral, PRE-PROCED URE ONCE, 1 dose, Starting Tue05/12/20 at 0141, Until Discontinu ed, Routine, Surgery/Pr ocedure [facility] lactated ringers IV infusion 500 mL 2019-05 07:41: 03 05-12 13:43 :00 No 500mL at 999 mL/hr, 500 mL, IV Infusion, PRN - SEE INSTRUCTIO NS, 1 dose, Starting Tue05/12/20 at 0141, Until Discontinu ed, Routine [facility] butorphanol (STADOL) injection 1 mg 2019-05 05:15: 11 05-12 16:20 :22 No 1mg 1 mg, IV Push, Q3HPRN, Starting 05/11/20 at 2315, Until 05/12/20 at 1020, Routine, Pain (scale 1-3) [facility] butorphanol (STADOL) injection 1 mg 2019-05 00:30: 00 05-11 23:27 :00 No 1mg 1 mg, IV Push, ONCE, 1 dose, 05/11/20 at 1830, Routine [facility] D5W-LR IV infusion 1,000 mL 2019-05 20:30: 00 05-12 16:20 :22 No 1000mL at 125 mL/hr, IV Infusion, CONTINUOUS , Starting 05/11/20 at 1430, Until Tue05/12/20 at 1020, Routine [facility] LR 1000 mL + oxytocin 20 units IV Solution 2019-05 20:27: 04 05-12 16:20 :22 No 2mU/min at 6-120 mL/hr, IV Infusion, TITRATE, Starting 05/11/20 at 1427, Until Tue05/12/20 at 1020, GAYLE [facility] metroNIDAZO LE 500 mg tablet 01-15 00:00: 00 05-13 00:00 :00 No [id number] 500mg Take 1 tablet by mouth 2 (two) times daily. [facility] vit/iron fum/folic ac ( 1 + 1 ORAL) 10-25 19:29: 37 Yes Take by mouth. [facility] Immunizations Ordered Immunization Name Filled Immunization Name Date Status Comments Source Varicella (varivax)(chicken pox) 2020-05-13 00:00:[address] [facility] Varicella (varivax)(chicken pox) 2020-05-13 00:00:[address] [facility] Varicella (varivax)(chicken pox) 2020-05-13 00:00:[address] [facility] Varicella (varivax)(chicken pox) 2020-05-13 00:00:[address] [facility] Varicella (varivax)(chicken pox) 2020-05-13 00:00:[address] [facility] Varicella (varivax)(chicken pox) 2020-05-13 00:00:[address] [facility] Varicella (varivax)(chicken pox) 2020-05-13 00:00:[address] [facility] Varicella (varivax)(chicken pox) 2020-05-13 00:00:[address] [facility] Varicella (varivax)(chicken pox) 2020-05-13 00:00:[address] [facility] Varicella (varivax)(chicken pox) 2020-05-13 00:00:[address] [facility] Varicella (varivax)(chicken pox) 2020-05-13 00:00:[address] [facility] Varicella (varivax)(chicken pox) 2020-05-13 00:00:[address] [facility] Varicella (varivax)(chicken pox) 2020-05-13 00:00:[address] [facility] Varicella (varivax)(chicken pox) 2020-05-13 00:00:[address] [facility] Varicella (varivax)(chicken pox) 2020-05-13 00:00:[address] [facility] Varicella (varivax)(chicken pox) 2020-05-13 00:00:[address] [facility] TDAP 2020-03-13 00:00:[address] [facility] TDAP 2020-03-13 00:00:[address] [facility] TDAP 2020-03-13 00:00:[address] [facility] TDAP 2020-03-13 00:00:[address] [facility] TDAP 2020-03-13 00:00:[address] [facility] TDAP 2020-03-13 00:00:[address] [facility] TDAP 2020-03-13 00:00:[address] [facility] TDAP 2020-03-13 00:00:[address] [facility] TDAP 2020-03-13 00:00:[address] [facility] TDAP 2020-03-13 00:00:[address] [facility] TDAP 2020-03-13 00:00:[address] [facility] TDAP 2020-03-13 00:00:[address] [facility] TDAP 2020-03-13 00:00:[address] [facility] TDAP 2020-03-13 00:00:[address] [facility] TDAP 2020-03-13 00:00:[address] [facility] TDAP 2020-03-13 00:00:[address] [facility] TDAP 2020-03-13 00:00:[address] [facility] TDAP 2020-03-13 00:00:[address] [facility] TDAP 2020-03-13 00:00:[address] [facility] TDAP 2020-03-13 00:00:[address] [facility] TDAP 2020-03-13 00:00:[address] [facility] TDAP 2020-03-13 00:00:[address] [facility] TDAP 2020-03-13 00:00:[address] [facility] TDAP 2020-03-13 00:00:[address] [facility] Meningococcal B, OMV Unknown Completed [facility] Meningococcal B, OMV Unknown Completed [facility] MMR Unknown Completed [facility] MMR Unknown Completed [facility] Pneumococcal 7 Conjugate, PCV7 (Prevnar7) Unknown Completed [facility] Pneumococcal 7 Conjugate, PCV7 (Prevnar7) Unknown Completed [facility] IPV Unknown Completed [facility] IPV Unknown Completed [facility] IPV Unknown Completed [facility] IPV Unknown Completed [facility] TDAP Unknown Completed [facility] Varicella (varivax)(chicken pox) Unknown Completed [facility] HPV Unknown Completed [facility] HPV Unknown Completed [facility] HPV Unknown Completed [facility] TDAP Unknown Completed [facility] Varicella (varivax)(chicken pox) Unknown Completed [facility] Varicella (varivax)(chicken pox) Unknown Completed [facility] DTP Unknown Completed [facility] DTP Unknown Completed [facility] DTP Unknown Completed [facility] DTP Unknown Completed [facility] DTP Unknown Completed [facility] Flu Trivalent Unknown Completed [facility] Flu Trivalent Unknown Completed [facility] HEPATITIS A Unknown Completed [facility] HEPATITIS A Unknown Completed [facility] Hep B, Adol or Pedi Dosage Unknown Completed [facility] Hep B, Adol or Pedi Dosage Unknown Completed [facility] Hep B, Adol or Pedi Dosage Unknown Completed [facility] Hib-HbOC Unknown Completed [facility] Hib-HbOC Unknown Completed [facility] Hib-HbOC Unknown Completed [facility] Hib-HbOC Unknown Completed [facility] Meningococcal Polysaccharide (groups A, C, Y and W-135) conjugate vaccine (MCV4P) Unknown Completed [facility] Meningococcal Polysaccharide (groups A, C, Y and W-135) conjugate vaccine (MCV4P) Unknown Completed [facility] Meningococcal B, OMV Unknown Completed [facility] Meningococcal B, OMV Unknown Completed [facility] MMR Unknown Completed [facility] MMR Unknown Completed [facility] Pneumococcal 7 Conjugate, PCV7 (Prevnar7) Unknown Completed [facility] Pneumococcal 7 Conjugate, PCV7 (Prevnar7) Unknown Completed [facility] IPV Unknown Completed [facility] IPV Unknown Completed [facility] IPV Unknown Completed [facility] IPV Unknown Completed [facility] TDAP Unknown Completed [facility] Varicella (varivax)(chicken pox) Unknown Completed [facility] HPV Unknown Completed [facility] HPV Unknown Completed [facility] HPV Unknown Completed [facility] TDAP Unknown Completed [facility] Varicella (varivax)(chicken pox) Unknown Completed [facility] Varicella (varivax)(chicken pox) Unknown Completed [facility] DTP Unknown Completed [facility] DTP Unknown Completed [facility] DTP Unknown Completed [facility] DTP Unknown Completed [facility] DTP Unknown Completed [facility] Flu Trivalent Unknown Completed [facility] Flu Trivalent Unknown Completed [facility] HEPATITIS A Unknown Completed [facility] HEPATITIS A Unknown Completed [facility] Hep B, Adol or Pedi Dosage Unknown Completed [facility] Hep B, Adol or Pedi Dosage Unknown Completed [facility] Hep B, Adol or Pedi Dosage Unknown Completed [facility] Hib-HbOC Unknown Completed [facility] Hib-HbOC Unknown Completed [facility] Hib-HbOC Unknown Completed [facility] Hib-HbOC Unknown Completed [facility] Meningococcal Polysaccharide (groups A, C, Y and W-135) conjugate vaccine (MCV4P) Unknown Completed [facility] Meningococcal Polysaccharide (groups A, C, Y and W-135) conjugate vaccine (MCV4P) Unknown Completed [facility] Meningococcal B, OMV Unknown Completed [facility] Meningococcal B, OMV Unknown Completed [facility] MMR Unknown Completed [facility] MMR Unknown Completed [facility] Pneumococcal 7 Conjugate, PCV7 (Prevnar7) Unknown Completed [facility] Pneumococcal 7 Conjugate, PCV7 (Prevnar7) Unknown Completed [facility] IPV Unknown Completed [facility] IPV Unknown Completed [facility] IPV Unknown Completed [facility] IPV Unknown Completed [facility] TDAP Unknown Completed [facility] Varicella (varivax)(chicken pox) Unknown Completed [facility] HPV Unknown Completed [facility] HPV Unknown Completed [facility] HPV Unknown Completed [facility] TDAP Unknown Completed [facility] Varicella (varivax)(chicken pox) Unknown Completed [facility] HPV Unknown Completed [facility] HPV Unknown Completed [facility] HPV Unknown Completed [facility] TDAP Unknown Completed [facility] Varicella (varivax)(chicken pox) Unknown Completed [facility] HPV Unknown Completed [facility] HPV Unknown Completed [facility] HPV Unknown Completed [facility] TDAP Unknown Completed [facility] Varicella (varivax)(chicken pox) Unknown Completed [facility] HPV Unknown Completed [facility] HPV Unknown Completed [facility] HPV Unknown Completed [facility] TDAP Unknown Completed [facility] Varicella (varivax)(chicken pox) Unknown Completed [facility] HPV Unknown Completed [facility] HPV Unknown Completed [facility] HPV Unknown Completed [facility] TDAP Unknown Completed [facility] Varicella (varivax)(chicken pox) Unknown Completed [facility] HPV Unknown Completed [facility] HPV Unknown Completed [facility] HPV Unknown Completed [facility] TDAP Unknown Completed [facility] Varicella (varivax)(chicken pox) Unknown Completed [facility] HPV Unknown Completed [facility] HPV Unknown Completed [facility] HPV Unknown Completed [facility] TDAP Unknown Completed [facility] Varicella (varivax)(chicken pox) Unknown Completed [facility] HPV Unknown Completed [facility] HPV Unknown Completed [facility] HPV Unknown Completed [facility] TDAP Unknown Completed [facility] Varicella (varivax)(chicken pox) Unknown Completed [facility] Varicella (varivax)(chicken pox) Unknown Completed [facility] DTP Unknown Completed [facility] DTP Unknown Completed [facility] DTP Unknown Completed [facility] DTP Unknown [facility] [facility] DTP Unknown Completed [facility] Flu Trivalent Unknown Completed [facility] Flu [facility]rivalent Unknown Completed [facility] HEPATITIS A Unknown Completed [facility] HEPATITIS A Unknown Completed [facility] Hep B, Adol or Pedi Dosage Unknown Completed [facility] Hep B, Adol or Pedi Dosage Unknown Completed [facility] Hep B, Adol or Pedi Dosage Unknown Completed [facility] Hib-HbOC Unknown Completed [facility] Hib-HbOC Unknown Completed [facility] Hib-HbOC Unknown Completed [facility] Hib-HbOC Unknown Completed [facility] Meningococcal Polysaccharide (groups A, C, Y and W-135) conjugate vaccine (MCV4P) Unknown Completed [facility] Meningococcal Polysaccharide (groups A, C, Y and W-135) conjugate vaccine (MCV4P) Unknown Completed [facility] Meningococcal B, OMV Unknown Completed [facility] Meningococcal B, OMV Unknown Completed [facility] MMR Unknown Completed [facility] MMR Unknown Completed [facility] Pneumococcal 7 Conjugate, PCV7 (Prevnar7) Unknown Completed [facility] Pneumococcal 7 Conjugate, PCV7 (Prevnar7) Unknown Completed [facility] IPV Unknown Completed [facility] IPV Unknown Completed [facility] IPV Unknown Completed [facility] IPV Unknown Completed [facility] TDAP Unknown Completed [facility] Varicella (varivax)(chicken pox) Unknown Completed [facility] HPV Unknown Completed [facility] HPV Unknown Completed [facility] HPV Unknown Completed [facility] TDAP Unknown Completed [facility] Varicella (varivax)(chicken pox) Unknown Completed [facility] Varicella (varivax)(chicken pox) Unknown Completed [facility] DTP Unknown Completed [facility] DTP Unknown Completed [facility] DTP Unknown Completed [facility] DTP Unknown Completed [facility] DTP Unknown Completed [facility] Flu Trivalent Unknown Completed [facility] Flu Trivalent Unknown Completed [facility] HEPATITIS A Unknown Completed [facility] HEPATITIS A Unknown Completed [facility] Hep B, Adol or Pedi Dosage Unknown Completed [facility] Hep B, Adol or Pedi Dosage Unknown Completed [facility] Hep B, Adol or Pedi Dosage Unknown Completed [facility] Hib-HbOC Unknown Completed [facility] Hib-HbOC Unknown Completed [facility] Hib-HbOC Unknown Completed [facility] Hib-HbOC Unknown Completed [facility] Meningococcal Polysaccharide (groups A, C, Y and W-135) conjugate vaccine (MCV4P) Unknown Completed [facility] Meningococcal Polysaccharide (groups A, C, Y and W-135) conjugate vaccine (MCV4P) Unknown Completed [facility] Vital Signs Vital Name Observation Time Observation Value Comments S ource Systolic blood pressure 2023-08-09 19:01:00 130 mm[Hg] [facility] Diastolic blood pressure 2023-08-09 19:01:00 87 mm[Hg] [facility] Heart rate 2023-08-09 19:01:00 83 /min [facility] Body temperature 2023-08-09 19:01:[address] [facility] Respiratory rate 2023-08-09 19:01:00 18 /min [facility] Body height 2023-08-09 19:01:00 170.2 cm [facility] Body weight 2023-08-09 19:01:00 84.993 kg [facility] BMI 2023-08-09 19:01:00 29.35 kg/m2 [facility] Systolic blood pressure 2023-07-13 19:48:00 136 mm[Hg] [facility] Diastolic blood pressure 2023-07-13 19:48:00 85 mm[Hg] [facility] Heart rate 2023-07-13 19:48:00 72 /min [facility] Body temperature 2023-07-13 19:48:[address] [facility] Respiratory rate 2023-07-13 19:48:00 18 /min [facility] Body height 2023-07-13 19:48:00 170.2 cm [facility] Body weight 2023-07-13 19:48:00 85.095 kg [facility] BMI 2023-07-13 19:48:00 29.38 kg/m2 [facility] Systolic blood pressure 2023-06-29 20:03:00 130 mm[Hg] [facility] Diastolic blood pressure 2023-06-29 20:03:00 80 mm[Hg] [facility] Heart rate 2023-06-29 19:53:00 82 /min [facility] Body temperature 2023-06-29 19:53:[address] [facility] Respiratory rate 2023-06-29 19:53:00 18 /min [facility] Body height 2023-06-29 19:53:00 170.2 cm [facility] Body weight 2023-06-29 19:53:00 86.229 kg [facility] BMI 2023-06-29 19:53:00 29.77 kg/m2 [facility] Systolic blood pressure 2020-07-18 19:53:00 125 mm[Hg] [facility] Diastolic blood pressure 2020-07-18 19:53:00 76 mm[Hg] [facility] Heart rate 2020-07-18 19:53:00 77 /min [facility] Body temperature 2020-07-18 19:53:[address] [facility] Respiratory rate 2020-07-18 19:53:00 16 /min [facility] Body height 2020-07-18 19:53:00 170.2 cm [facility] Body weight 2020-07-18 19:53:00 79.946 kg [facility] BMI 2020-07-18 19:53:00 27.60 kg/m2 [facility] Systolic blood pressure 2020-07-04 21:03:00 125 mm[Hg] [facility] Diastolic blood pressure 2020-07-04 21:03:00 79 mm[Hg] [facility] Heart rate 2020-07-04 21:03:00 89 /min [facility] Body temperature 2020-07-04 21:03:[address] [facility] Respiratory rate 2020-07-04 21:03:00 16 /min [facility] Body height 2020-07-04 21:03:00 170.2 cm [facility] Body weight 2020-07-04 21:03:00 80.457 kg [facility] BMI 2020-07-04 21:03:00 27.78 kg/m2 [facility] Systolic blood pressure 2020-06-06 16:13:00 123 mm[Hg] [facility] Diastolic blood pressure 2020-06-06 16:13:00 84 mm[Hg] [facility] Heart rate 2020-06-06 16:13:00 68 /min [facility] Body temperature 2020-06-06 16:13:[address] [facility] Respiratory rate 2020-06-06 16:13:00 16 /min [facility] Body height 2020-06-06 16:13:00 172.7 cm [facility] Body weight 2020-06-06 16:13:00 34.133 kg [facility] BMI 2020-06-06 16:13:00 11.44 kg/m2 [facility] Systolic blood pressure 2020-05-19 22:08:00 118 mm[Hg] [facility] Diastolic blood pressure 2020-05-19 22:08:00 78 mm[Hg] [facility] Body temperature 2020-05-19 22:08:[address] [facility] Respiratory rate 2020-05-19 22:08:00 16 /min [facility] Body height 2020-05-19 22:08:00 172.7 cm [facility] Body weight 2020-05-19 22:08:00 82.214 kg [facility] BMI 2020-05-19 22:08:00 27.56 kg/m2 [facility] Systolic blood pressure 2020-05-13 18:00:00 125 mm[Hg] [facility] Diastolic blood pressure 2020-05-13 18:00:00 88 mm[Hg] [facility] Heart rate 2020-05-13 18:00:00 76 /min [facility] Body temperature 2020-05-13 18:00:[address] [facility] Respiratory rate 2020-05-13 18:00:00 18 /min [facility] Oxygen saturation in Arterial blood by Pulse oximetry 2020-05-13 18:00:00 98 /min [facility] Body height 2020-05-11 18:58:00 170.2 cm [facility] Body weight 2020-05-11 18:58:00 88.451 kg [facility] BMI 2020-05-11 18:58:00 30.54 kg/m2 [facility] Systolic blood pressure 2020-05-07 21:54:00 138 mm[Hg] [facility] Diastolic blood pressure 2020-05-07 21:54:00 78 mm[Hg] [facility] Heart rate 2020-05-07 21:54:00 91 /min [facility] Body temperature 2020-05-07 21:54:[address] [facility] Respiratory rate 2020-05-07 21:54:00 16 /min [facility] Body height 2020-05-07 21:54:00 172.7 cm [facility] Body weight 2020-05-07 21:54:00 90.436 kg [facility] BMI 2020-05-07 21:54:00 30.31 kg/m2 [facility] Systolic blood pressure 2020-05-07 21:54:00 138 mm[Hg] [facility] Diastolic blood pressure 2020-05-07 21:54:00 78 mm[Hg] [facility] Heart rate 2020-05-07 21:54:00 91 /min [facility] Body temperature 2020-05-07 21:54:[address] [facility] Respiratory rate 2020-05-07 21:54:00 16 /min [facility] Body height 2020-05-07 21:54:00 172.7 cm [facility] Body weight 2020-05-07 21:54:00 90.436 kg [facility] BMI 2020-05-07 21:54:00 30.31 kg/m2 [facility] Systolic blood pressure 2020-04-30 19:23:00 129 mm[Hg] [facility] Diastolic blood pressure 2020-04-30 19:23:00 77 mm[Hg] [facility] Heart rate 2020-04-30 19:22:00 102 /min [facility] Body temperature 2020-04-30 19:22:[address] [facility] Respiratory rate 2020-04-30 19:22:00 16 /min [facility] Body height 2020-04-30 19:22:00 170.2 cm [facility] Body weight 2020-04-30 19:22:00 88.933 kg [facility] BMI 2020-04-30 19:22:00 30.71 kg/m2 [facility] Systolic blood pressure 2020-04-30 19:23:00 129 mm[Hg] [facility] Diastolic blood pressure 2020-04-30 19:23:00 77 mm[Hg] [facility] Heart rate 2020-04-30 19:22:00 102 /min [facility] Body temperature 2020-04-30 19:22:[address] [facility] Respiratory rate 2020-04-30 19:22:00 16 /min [facility] Body height 2020-04-30 19:22:00 170.2 cm [facility] Body weight 2020-04-30 19:22:00 88.933 kg [facility] BMI 2020-04-30 19:22:00 30.71 kg/m2 [facility] Systolic blood pressure 2020-04-22 21:37:00 134 mm[Hg] [facility] Diastolic blood pressure 2020-04-22 21:37:00 78 mm[Hg] [facility] Heart rate 2020-04-22 21:37:00 85 /min [facility] Body temperature 2020-04-22 21:37:[address] [facility] Respiratory rate 2020-04-22 21:37:00 16 /min [facility] Body height 2020-04-22 21:37:00 170.2 cm [facility] Body weight 2020-04-22 21:37:00 88.043 kg [facility] BMI 2020-04-22 21:37:00 30.40 kg/m2 [facility] Systolic blood pressure 2020-04-08 22:15:00 131 mm[Hg] [facility] Diastolic blood pressure 2020-04-08 22:15:00 78 mm[Hg] [facility] Heart rate 2020-04-08 22:12:00 96 /min [facility] Body temperature 2020-04-08 22:12:[address] [facility] Respiratory rate 2020-04-08 22:12:00 16 /min [facility] Body height 2020-04-08 22:12:00 170.2 cm [facility] Body weight 2020-04-08 22:12:00 86.835 kg [facility] BMI 2020-04-08 22:12:00 29.98 kg/m2 [facility] Systolic blood pressure 2020-03-27 21:18:00 120 mm[Hg] [facility] Diastolic blood pressure 2020-03-27 21:18:00 76 mm[Hg] [facility] Heart rate 2020-03-27 21:18:00 95 /min [facility] Body temperature 2020-03-27 21:18:[address] [facility] Respiratory rate 2020-03-27 21:18:00 16 /min [facility] Body height 2020-03-27 21:18:00 170.2 cm [facility] Body weight 2020-03-27 21:18:00 86.24 kg [facility] BMI 2020-03-27 21:18:00 29.78 kg/m2 [facility] Systolic blood pressure 2020-03-13 19:29:00 127 mm[Hg] [facility] Diastolic blood pressure 2020-03-13 19:29:00 80 mm[Hg] [facility] Heart rate 2020-03-13 19:29:00 94 /min [facility] Body temperature 2020-03-13 19:29:[address] [facility] Respiratory rate 2020-03-13 19:29:00 16 /min [facility] Body height 2020-03-13 19:29:00 170.2 cm [facility] Body weight 2020-03-13 19:29:00 84.851 kg [facility] BMI 2020-03-13 19:29:00 29.30 kg/m2 [facility] Systolic blood pressure 2020-02-28 18:28:00 136 mm[Hg] [facility] Diastolic blood pressure 2020-02-28 18:28:00 75 mm[Hg] [facility] Heart rate 2020-02-28 18:28:00 118 /min [facility] Body temperature 2020-02-28 18:28:[address] [facility] Respiratory rate 2020-02-28 18:28:00 16 /min [facility] Body height 2020-02-28 18:28:00 170.2 cm [facility] Body weight 2020-02-28 18:28:00 83.093 kg [facility] BMI 2020-02-28 18:28:00 28.69 kg/m2 [facility] Systolic blood pressure 2020-02-15 18:29:00 125 mm[Hg] [facility] Diastolic blood pressure 2020-02-15 18:29:00 71 mm[Hg] [facility] Heart rate 2020-02-15 18:29:00 95 /min [facility] Body temperature 2020-02-15 18:29:[address] [facility] Respiratory rate 2020-02-15 18:29:00 16 /min [facility] Body height 2020-02-15 18:29:00 170.2 cm [facility] Body weight 2020-02-15 18:29:00 82.6 kg [facility] BMI 2020-02-15 18:29:00 28.52 kg/m2 [facility] Systolic blood pressure 2020-01-14 21:04:00 133 mm[Hg] [facility] Diastolic blood pressure 2020-01-14 21:04:00 78 mm[Hg] [facility] Heart rate 2020-01-14 21:04:00 94 /min [facility] Body temperature 2020-01-14 21:04:[address] [facility] Respiratory rate 2020-01-14 21:04:00 16 /min [facility] Body height 2020-01-14 21:04:00 170.2 cm [facility] Body weight 2020-01-14 21:04:00 79.55 kg [facility] BMI 2020-01-14 21:04:00 27.47 kg/m2 [facility] BMI 2019-12-21 18:30:00 27.19 kg/m2 [facility] Systolic blood pressure 2019-12-21 18:30:00 137 mm[Hg] [facility] Diastolic blood pressure 2019-12-21 18:30:00 77 mm[Hg] [facility] Heart rate 2019-12-21 18:30:00 111 /min [facility] Body temperature 2019-12-21 18:30:[address] [facility] Respiratory rate 2019-12-21 18:30:00 16 /min [facility] Body height 2019-12-21 18:30:00 170.2 cm [facility] Body weight 2019-12-21 18:30:00 78.744 kg [facility] Systolic blood pressure 2019-11-23 20:27:00 123 mm[Hg] [facility] Diastolic blood pressure 2019-11-23 20:27:00 78 mm[Hg] [facility] Heart rate 2019-11-23 20:27:00 101 /min [facility] Body temperature 2019-11-23 20:27:[address] [facility] Respiratory rate 2019-11-23 20:27:00 16 /min [facility] Body height 2019-11-23 20:27:00 172.7 cm [facility] Body weight 2019-11-23 20:27:00 77.429 kg [facility] BMI 2019-11-23 20:27:00 25.95 kg/m2 [facility] Systolic blood pressure 2019-10-26 19:19:00 138 mm[Hg] [facility] Diastolic blood pressure 2019-10-26 19:19:00 83 mm[Hg] [facility] Heart rate 2019-10-26 19:19:00 93 /min [facility] Body temperature 2019-10-26 19:19:[address] [facility] Respiratory rate 2019-10-26 19:19:00 16 /min [facility] Body height 2019-10-26 19:19:00 170.2 cm [facility] Body weight 2019-10-26 19:19:00 76.856 kg [facility] BMI 2019-10-26 19:19:00 26.54 kg/m2 [facility] Procedures Procedure Date / Time Performed Performing Clinician Source DISCLOSURE AND CONSENT, MEDICAL AND SURGICAL PROCEDURES 2023-07-13 06:01:00 Doctor Unassigned, [place] [facility] ASSIGNMENT OF BENEFITS 2023-06-29 18:47:56 Docto r Unassigned, [place] [facility] POCT TEST 2020-07-04 21:16:00 Mas[address]ammieDonaldloulou Ardon [facility] CONSENT FOR CONTRACEPTION 2020-07-04 06:01:00 Do ctor Unassigned, [place] [facility] CBC WITH DIFF 2020-05-13 09:55:00 Guevara Stroud [facility] VENOUS CORD GAS 2020-05-12 14:24:00 Abhay Boogie in [facility] PROTEIN CREAT RATIO URINE RANDOM 2020-05-12 10:37:00 Tyrone [facility] LACTATE DEHYDROGENASE 2020-05-12 10:28:00 Tyrone [facility] CBC WITH DIFF 2020-05-11 23:53:00 Ana Maria Roberts [facility] SGOT (ASPARTATE AMINO TRANSFER) 2020-05-11 20:58:00 Tyrone [facility] CREATININE 2020-05-11 20:58:00 Tyrone [facility] ALANINE AMINO TRANSFERASE(SGPT 2020-05-11 20:58:00 Tyrone [facility] URIC ACID 2020-05-11 20:58:00 Tyrone [facility] HEPATITIS B SURFACE ANTIGEN 2020-05-11 20:58:[address] [facility] GALV ONLY - SYPHILIS IGG/IGM 2020-05-11 20:58:[address] [facility] HB ABO GROUPING 2020-05-11 20:35:00 Abhay [address] in [facility] RHO (D) IMMUNE GLOBULIN 2020-05-11 20:35:[address] Luis E [address]oud [facility] COVID-19 (ID NOW RAPID TESTING) 2020-05-11 18:53:[address] [facility] LAB ONLY COVID INTERPRETATION 2020-05-11 18:53:[address] [facility] POCT URINALYSIS 2020-05-07 21:55:[address] [facility] POCT URINALYSIS 2020-04-22 21:42:[address] [facility] POCT URINALYSIS 2020-04-08 22:18:[address] [facility] POCT URINALYSIS 2020-03-27 21:21:[address] [facility] TDAP VACCINE, >11 YRS, IM 2020-03-13 19:38:[address] [facility] POCT URINALYSIS 2020-03-13 19:31:[address] [facility] POCT URINALYSIS 2020-02-28 18:33:[address] [facility] POCT URINALYSIS 2020-02-15 00:00:[address] [facility] POCT URINALYSIS 2020-01-14 21:05:[address] [facility] POCT URINALYSIS 2019-12-21 00:00:[address] [facility] POCT URINALYSIS 2019-11-23 00:00:[address] [facility] POCT URINALYSIS W/O SPECIFIC GRAVITY 2019-10-26 19:13:[address] [facility] POCT TEST 2019-10-26 19:12:[address] [facility] Encounters Start Date/Time End Date/Time Encounter Type Admission Type Attending Clinicians Care Facility Care Department Encounter ID Source 2021-03-14 13:13:44 Outpatient [facility] [id number] [facility] 2023-08-09 14:15:00 2023-08-09 14:45:23 Outpatient R JAYLA FELIPE [facility] [id number] [facility] 2023-08-09 14:15:00 2023-08-09 14:45:23 Office Visit Jayla Felipe [facility] FAMILY NURSE PRACTITIONER [facility] CHILD [facility] [id number] [facility] 2023-08-09 00:00:00 2023-08-09 00:00:00 Case Management Jayla Felipe [facility] FAMILY NURSE PRACTITIONER [facility] CHILD [facility] [id number] [facility] 2023-07-20 13:45:00 2023-07-20 13:45:00 Outpatient R TRACY BARNES [facility] [id number] [facility] 2023-07-13 13:45:00 2023-07-13 14:32:45 Outpatient R TRACY BARNES [facility] [id number] [facility] 2023-07-13 13:45:00 2023-07-13 14:15:00 Office Visit Tracy Barnes [facility] FAMILY NURSE PRACTITIONER [facility] [id number] [facility] 2023-07-13 00:00:00 2023-07-13 00:00:00 Orders Only Doctor Unassigned, [place] [facility] 1.840.114 350.1.13.10 4.2.7.2.686 [id number] [facility] 2023-06-29 13:30:00 2023-06-29 14:24:18 Outpatient R TRACY BARNES [facility] [id number] [facility] 2023-06-29 13:30:00 2023-06-29 14:24:18 Office Visit Tracy Barnes [facility] FAMILY NURSE PRACTITIONER [facility] 1.2.840.114 350.1.13.10 4.2.7.2.686 [id number] 107 [id number] [facility] 2023-06-29 00:00:00 2023-06-29 00:00:00 Orders Only Doctor Unassigned, [place] [facility] 1.2.840.114 350.1.13.10 4.2.7.2.686 [id number] [facility] 2020-08-05 00:00:00 2020-08-05 00:00:00 Patient Outreach Dhiraj Pacheco [facility] 1.2.840.114 350.1.13.10 4.2.7.2.686 [id number] [facility] 2020 00:00:00 2020 00:00:00 Telephone Tracy Barnes [facility] FAMILY NURSE PRACTITIONER [facility] & CHILD [facility] 1.2840.114 350.1.13.10 4.2.7.2.686 [id number] 107 [id number] [facility] 2020-07-18 13:25:05 2020-07-18 14:12:18 Office Visit Tracy Barnes [facility] FAMILY NURSE PRACTITIONER [facility] CHILD [facility] 1.2840.114 350.1.13.10 4.2.7.2.686 [id number] 107 [id number] [facility] 2020-07-18 13:15:00 2020-07-18 13:15:00 Outpatient R TRACY BARNES [facility] [id number] [facility] 2020-07-04 14:45:17 2020-07-04 16:08:46 Office Visit Tracy Barnes [facility] FAMILY NURSE PRACTITIONER [facility] & CHILD [facility] 1.2.840.114 350.1.13.10 4.2.7.2.686 [id number] [facility] 2020-07-04 14:30:00 2020-07-04 14:30:00 Outpatient R TRACY BARNES [facility] [id number] [facility] 2020-07-04 00:00:00 2020-07-04 00:00:00 Orders Only Doctor Unassigned, [place] [facility] 1..840.114 350.1.13.10 4.2.7.2.686 [id number] [facility] 2020-06-30 15:15:00 2020-06-30 15:15:00 Outpatient R TRACY BARNES [facility] [id number] [facility] 2020-06-06 09:49:43 2020-06-06 10:42:18 Routine Visit Tracy Barnes [facility] FAMILY NURSE PRACTITIONER [facility] & CHILD [facility] 1..840.114 350.1.13.10 4.2.7.2.686 [id number] 107 [id number] [facility] 2020-06-06 09:45:00 2020-06-06 09:45:00 Outpatient R TRACY BARNES [facility] [id number] [facility] 2020-05-19 15:47:51 2020-05-19 16:26:38 Nurse Visit Visit, Ang-Rmchp Nurse Tracy Barnes [facility] FAMILY NURSE PRACTITIONER [facility] & CHILD [facility] 1..840.114 350.1.13.10 4.2.7.2.686 [id number] 107 [id number] [facility] 2020-05-19 11:00:00 2020-05-19 11:00:00 Outpatient R [facility] [id number] [facility] 2020-05-14 15:15:00 2020-05-14 15:15:00 Outpatient R TRACY BARNES [facility] [id number] [facility] 2020-05-11 12:42:00 2020-05-13 12:30:00 Hospital Encounter Keira Pacheco [facility] 1.2840.114 350.1.13.10 4.2.7.2.686 [id number] [facility] 2020-05-07 15:47:36 2020-05-07 16:07:58 Routine Visit Bates, Rossherie Hussein [facility] FAMILY NURSE PRACTITIONER [facility] & CHILD [facility] 1.2.840.114 350.1.13.10 4.2.7.2.686 [id number] 107 [id number] 2020-05-07 15:47:36 2020-05-07 16:07:58 Routine Visit Rosemary Batessherry Hussein [facility] FAMILY NURSE PRACTITIONER [facility] & CHILD [facility] 1.2.840.114 350.1.13.10 4.2.7.2.686 [id number] [facility] 2020-05-07 15:45:00 2020-05-07 15:45:00 Outpatient R JONATAN BATES [facility] [id number] [facility] 2020-04-30 12:50:30 2020-04-30 13:49:04 Routine Visit Tracy Barnes [facility] FAMILY NURSE PRACTITIONER [facility] & CHILD [facility] 1.2.840.114 350.1.13.10 4.2.7.2.686 [id number] [facility] 2020-04-30 12:50:30 2020-04-30 13:49:04 Routine Visit Tracy Barnes [facility] FAMILY NURSE PRACTITIONER [facility] & CHILD [facility] 1.2840.114 350.1.13.10 4.2.7.2.686 [id number] 2020-04-30 13:00:00 2020-04-30 13:00:00 Outpatient R TRACY BARNES [facility] [id number] [facility] 2020-04-22 15:27:28 2020-04-22 16:08:10 Routine Visit Tracy Barnes [facility] FAMILY NURSE PRACTITIONER [facility] & CHILD [facility] 1.2840.114 350.1.13.10 4.2.7.2.686 [id number] 107 [id number] [facility] 2020-04-22 15:30:00 2020-04-22 15:30:00 Outpatient R TRACY BARNES [facility] [id number] [facility] 2020-04-09 14:00:00 2020-04-09 14:00:00 Outpatient R TRACY BARNES [facility] [id number] [facility] 2020-04-08 15:42:39 2020-04-08 16:24:32 Routine Visit Tracy Barnes [facility] FAMILY NURSE PRACTITIONER [facility] & CHILD [facility] 1.2840.114 350.1.13.10 4.2.7.2.686 [id number] [facility] 2020-04-08 15:45:00 2020-04-08 15:45:00 Outpatient R TRACY BARNES [facility] [id number] [facility] 2020-03-27 14:56:11 2020-03-27 15:11:11 Routine Visit Tracy Barnes [facility] FAMILY NURSE PRACTITIONER [facility] & CHILD [facility] 1.2840.114 350.1.13.10 4.2.7.2.686 [id number] [facility] 2020-03-27 15:00:00 2020-03-27 15:00:00 Outpatient R TRACY BARNES [facility] [id number] [facility] 2020-03-13 14:12:02 2020-03-13 15:05:17 Routine Visit Tracy Barnes [facility] FAMILY NURSE PRACTITIONER [facility] & CHILD [facility] 1.2840.114 350.1.13.10 4.2.7.2.686 [id number] 107 [id number] [facility] 2020-03-13 14:00:00 2020-03-13 14:00:00 Outpatient R TRACY BARNES [facility] [id number] [facility] 2020-03-07 00:00:00 2020-03-07 00:00:00 Abstract Tracy Barnes [facility] FAMILY NURSE PRACTITIONER [facility] & CHILD [facility] 1.2840.114 350.1.13.10 4.2.7.2.686 [id number] 107 [id number] [facility] 2020-02-29 08:08:01 2020-02-29 09:58:54 Asset Protection Greeter Visit Lab, LulichTracy Cash [facility] FAMILY NURSE PRACTITIONER [facility] & CHILD [facility] 1.2840.114 350.1.13.10 4.2.7.2.686 [id number] 107 [id number] [facility] 2020-02-29 08:15:00 2020-02-29 08:15:00 Outpatient R [facility] [id number] [facility] 2020-02-28 14:20:07 2020-02-28 14:50:07 Asset Protection Greeter Visit Ultrasound, Tracy Connell Shannon M [facility] FAMILY NURSE PRACTITIONER [facility] & CHILD [facility] 1.840.114 350.1.13.10 4.2.7.2.686 [id number] [facility] 2020-02-28 13:07:00 2020-02-28 14:05:02 Routine Visit Tracy Barnes [facility] FAMILY NURSE PRACTITIONER [facility] CHILD [facility] 1.84.114 350.1.13.10 4.2.7.2.686 [id number] [facility] 2020-02-28 13:15:00 2020-02-28 13:15:00 Outpatient R TRACY BARNES [facility] [id number] [facility] 2020-02-15 13:06:03 2020-02-15 13:45:56 Routine Visit Tracy Barnes [facility] FAMILY NURSE PRACTITIONER [facility] & [facility] 1.2.840.114 350.1.13.10 4.2.7.2.686 [id number] 107 [id number] [facility] 2020-02-15 13:00:00 2020-02-15 13:00:00 Outpatient R TRACY BARNES [facility] [id number] [facility] 2020-01-18 13:00:00 2020-01-18 13:00:00 Outpatient R TRACY BARNES [facility] [id number] [facility] 2020-01-17 00:00:00 2020-01-17 00:00:00 Telephone Tracy Barnes [facility] FAMILY NURSE PRACTITIONER [facility] & [facility] 1.2.840.114 350.1.13.10 4.2.7.2.686 [id number] [facility] 2020-01-16 00:00:00 2020-01-16 00:00:00 Telephone Tracy Barnes [facility] FAMILY NURSE PRACTITIONER [facility] 1.2.840.114 350.1.13.10 4.2.7.2.686 [id number] [facility] 2020-01-14 15:54:15 2020-01-14 16:25:55 Routine Visit Tracy Barnes [facility] FAMILY NURSE PRACTITIONER [facility] 1.2.840.114 350.1.13.10 4.2.7.2.686 [id number] [facility] 2020-01-14 16:00:00 2020-01-14 16:00:00 [id number] 2020-01-11 00:00:00 2020-01-11 00:00:00 Telephone Tracy Barnes [facility] FAMILY NURSE PRACTITIONER [facility] 1.2.840.114 350.1.13.10 4.2.7.2.686 [id number] 107 [id number] [facility] 2020-01-08 00:00:00 2020-01-08 00:00:00 Abstract Tracy Barnes [facility] FAMILY NURSE PRACTITIONER [facility] CHILD [facility] 1.2.840.114 350.1.13.10 4.2.7.2.686 [id number] [facility] 2020-01-03 13:53:31 2020-01-03 14:53:31 Asset Protection Greeter Visit Ultrasound, Jayden Reed [facility] FAMILY NURSE PRACTITIONER [facility] CHILD [facility] 1.2.840.114 350.1.13.10 4.2.7.2.686 [id number] [facility] 2020-01-03 14:00:00 2020-01-03 14:00:00 Outpatient P [facility] [id number] [facility] 2019-12-24 00:00:00 2019-12-24 00:00:00 Patient Secure Msg Doctor Unassigned, [place] [facility] FAMILY NURSE PRACTITIONER [facility] CHILD [facility] 1.2.840.114 350.1.13.10 4.2.7.2.686 [id number] 107 [id number] [facility] 2019-12-21 13:22:06 2019-12-21 14:05:09 Routine Visit Tracy Barnes [facility] FAMILY NURSE PRACTITIONER [facility] CHILD [facility] 1.2.840.114 350.1.13.10 4.2.7.2.686 [id number] [facility] 2019-12-21 13:30:00 2019-12-21 13:30:00 Outpatient R TRACY BARNES [facility] [id number] [facility] 2019-11-23 15:17:29 2019-11-23 15:51:23 Routine Visit Tracy Barnes [facility] FAMILY NURSE PRACTITIONER [facility] & CHILD [facility] 1.2.840.114 350.1.13.10 4.2.7.2.686 [id number] [facility] 2019-11-23 15:30:00 2019-11-23 15:30:00 Outpatient R TEVINDONALDTRACY [facility] [id number] [facility] 2019-11-14 14:34:11 2019-11-14 14:49:11 Asset Protection Greeter Visit Lab, [facility] 1.2840.114 350.1.13.10 4.2.7.2.686 [id number] [facility] 2019-11-14 13:18:19 2019-11-14 14:03:19 Asset Protection Greeter Visit 5, [facility] Us Room [facility] 1.2840.114 350.1.13.10 4.2.7.2.686 [id number] [facility] 2019-11-14 13:00:00 2019-11-14 13:00:00 Outpatient P [facility] [id number] [facility] 2019-11-14 00:00:00 2019-11-14 00:00:00 Case Management Rima Brothers [facility] 1.2840.114 350.1.13.10 4.2.7.2.686 [id number] [facility] 2019-11-14 00:00:00 2019-11-14 00:00:00 Abstract Tracy Barnes [facility] FAMILY NURSE PRACTITIONER [facility] & CHILD [facility] 1.2.840.114 350.1.13.10 4.2.7.2.686 [id number] [facility] 2019-10-26 14:10:05 2019-10-26 15:15:09 Initial Visit Tracy Barnes [facility] FAMILY NURSE PRACTITIONER [facility] & CHILD [facility] 1.2.840.114 350.1.13.10 4.2.7.2.686 [id number] 107 [id number] [facility] 2019-10-26 14:00:00 2019-10-26 14:00:00 Outpatient Jovita PAIGESEBASTIAN [facility] [id number] [facility] Results Test Description Test Time Test Comments Results Result Co mments Source [facility] [id number] 21:16:00* Test Item Value Reference Range Interpretation Comme nts POCT PREG (test code = 1605) Negative On board controls acceptable with C Line (test code = 3574) Yes POCT PREG LOT # (test code = 3575) POCT PREG TEST DATE ( test code = 3576) [facility] [id number] 21:16:00* Test Item Value Reference Range Interpretation Comme nts POCT PREG (test code = 1605) Negative On board controls acceptable with C Line (test code = 3574) Yes POCT PREG LOT # (test code = 3575) POCT PREG TEST DATE ( test code = 3576) [facility] with [id number] 10:16:00* Test Item Value Reference Range Interpretation Comme nts WBC (test code = 6690-2) See_Comment [Automated messa ge] The system which generated this result transmitted reference range: 4.30 - 11.10 10*3/?L. The reference range was not used to interpret this result as normal/abnormal. RBC (test code = 789-8) See_Comment L [Automated messa ge] The system which generated this result transmitted reference range: 3.93 - 5.25 10*6/?L. The reference range was not used to interpret this result as normal/abnormal. HGB (test code = 718-7) 9.3 g/dL 11.6-15 L HCT (test code = 4544-3) 28.8 % 35.7-45.2 L MCV (test code = 787-2) 85.2 fL 80.6-95.5 MCH (test code = 785-6) 27.5 pg 25.9-32.8 MCHC (test code = 786-4) 32.3 g/dL 31.6-35.1 RDW-SD (test code = 30068-3) 43.1 fL 39-49.9 RDW-CV (test code = 788-0) 13.9 % 12-15.5 PLT (test code = 777-3) See_Comment [Automated messa ge] The system which generated this result transmitted reference range: 166 - 358 10*3/?L. The reference range was not used to interpret this result as normal/abnormal. MPV (test code = 65451-2) 10.6 fL 9.5-12.9 NRBC/100 WBC (test code = 8580714701) See_Comment [Automated Viralize ssage] The system which generated this result transmitted reference range: 0.0 - 10.0 /100 WBCs. The reference range was not used to interpret this result as normal/abnormal. NRBC x10^3 (test code = 8753181471) <0.01 See_Comment [Automated messa ge] The system which generated this result transmitted reference range: 10*3/?L. The reference range was not used to interpret this result as normal/abnormal. GRAN MAT (NEUT) % (test code = 770-8) 66.7 % IMM GRAN % (test code = 1781277070) 1.00 % LYMPH % (test code = 736-9) 22.4 % MONO % (test code = 5905-5) 7.6 % EOS % (test code = 713-8) 2.0 % BASO % (test code = 706-2) 0.3 % GRAN MAT x10^3(ANC) (test code = 1237151575) 5.95 10*3/uL 1.88-7.09 IMM GRAN x10^3 (test code = 2504462703) 0.09 10*3/uL 0-0.06 H LYMPH x10^3 (test code = 731-0) 2.00 10*3/uL 1.32-3.29 MONO x10^3 (test code = 742-7) 0.68 10*3/uL 0.33-0.92 EOS x10^3 (test code = 711-2) 0.18 10*3/uL 0.03-0.39 BASO x10^3 (test code = 704-7) 0.03 10*3/uL 0.01-0.07 Lab Interpretation (test code = 45279-6) Abnormal [facility] COVID [id number] 22:13:00COVID DMT InterpretationInterpretation/Recommendations: Molecular NAAT Tests for Active Infection with the SARS-CoV-2 Virus: This result indicates that the patient has been infected with the SARS-CoV-2 virus that causes COVID-19 illness. The patient should be considered infectious and able to transmit the virus within the first 10 days after symptom onset in dylp-yw-zzcndrwf illness and within the first 20 days after symptom onset in critical illness and/or severe immunocompromise. Asymptomaticpatients are considered infectious for the first 10 days subsequent to the initial positive test result. From the onset of symptoms, if any, this result is likely to remain positive for 2 to 4 weeks. Tests for IgM and/or IgG Antibodies to SARS-CoV-2 Virus: The patient has tested negative for SARS-CoV-2 IgG antibodies. In SARS-CoV-2 infections, IgM and IgG antibodies can arise nearly simultaneously in the serum within 2-3 weeks after illness onset. If testing was done prior to this time, then the negative result is likely due to the patient not yet generating an antibody response. Testing for antibodies 3 weeks after illness onset is recommended. At this time, it is unknown if the productionof antibodies - specifically IgG antibodies - indicates immunity to the SARS-CoV-2 virus and how long antibody production lasts. Of note, some patients do not develop detectable IgG or IgM antibodiesfollowing infection, which may explain persistently negative antibody results in patients with positive NAAT testing (PCR, Rapid ID Now, etc.). ? Interpretation Result Comments:These interpretation comments are based upon all COVID-19 testing the patient has had at [facility], including molecular NAAT testing (more commonly known as PCR testing and Rapid ID Now testing) and antibody testing. It does not take into account any testing that a patient has had outside of the [facility] medical record. [facility] LABORATORY SERVICESCOVID Results SARS-CoV-2 Rapid ID NOW (no units) ? ? Date ? Value ? 05/11/2020 ? Positive (A) ? CoV-2 IgG (no units) ? ? Date ? Value ? 04/30/2020 ? Negative ? ? ? [facility]OR[facility] SERVICESUnSt. David[facility] CenterGALV ONLY - SYPHILIS [id number] 16:27:00* Test Item Value Reference Range Interpretation Comme nts Syphilis IgG/IgM (test code = 40418-8) Non-reactive Non-reactive PAULO (test code = PAULO) Non-reactive - No serologic evidence of T. pallidum infection. Cannot exclude incubating or early syphilis. Submit a second specimen in 2-4 weeks if syphilis is clinically suspected. Equivocal - Further testing to follow. Reactive - Further testing to follow. Lab Interpretation (test code = 29734-3) Normal [facility] Hospital[facility] (D) IMMUNE [id number] 16:24:32* Test Item Value Reference Range Interpretation Comme nts RHIG CANDIDATE? (test code = 5055) No- see comment Patient is not a candidate for RhIg- Patient is Rh Positive.Performed at [facility] Laboratory Services - [facility] Blood [address] [place] [address]Tfmb Free: [phone] No. [id number] [facility] HospitalVENOUS CORD [id number] 14:42:00* Test Item Value Reference Range Interpretation Comme nts VENOUS BASE EXCESS, CORD (test code = 4153787677) mEq/L VENOUS PH, CORD (test code = 6813423051) 7.25-7.45 VENOUS PC02, CORD (test code = 5810421507) See_Comment [Automated messa ge] The system which generated this result transmitted reference range: 27 - 49 mmHg. The reference range was not used to interpret this result as normal/abnormal. VENOUS PO2, CORD (test code = 3907042094) See_Comment [Automated me ssage] The system which generated this result transmitted reference range: 17 - 41 mmHg. The reference range was not used to interpret this result as normal/abnormal. VENOUS BICARBONATE, CORD (test code = 7349470554) See_Comment [Automated messa ge] The system which generated this result transmitted reference range: 12 - 29 mEq/L. The reference range was not used to interpret this result as normal/abnormal. [facility] HospitalARTERIAL CORD [id number] 14:41:00* Test Item Value Reference Range Interpretation Comme [facility] BASE EXCESS, CORD (test code = 8100598988) mEq/L AC PH, CORD (BEAKER) (test code = 0509185344) 7.18-7.38 PC02, CORD (test code = 0732559716) See_Comment [Automated messa ge] The system which generated this result transmitted reference range: 32 - 66 mmHg. The reference range was not used to interpret this result as normal/abnormal. PO2, CORD (test code = 1801725608) See_Comment [Automated messa ge] The system which generated this result transmitted reference range: 10 - 30 mmHg. The reference range was not used to interpret this result as normal/abnormal. BICARBONATE, CORD (test code = 3102843074) See_Comment [Automated messa ge] The system which generated this result transmitted reference range: 17 - 27 mEq/L. The reference range was not used to interpret this result as normal/abnormal. [facility] HospitalLACTATE [id number] 11:33:00* Test Item Value Reference Range Interpretation Comme [facility] LDH (test code = 2081839559) 552 U/L 300-600 Lab Interpretation (test cod e = 91954-4) Normal [facility] HospitalPROTEIN CREAT RATIO URINE [id number] 11:32:00* Test Item Value Reference Range Interpretation Comme [facility] T. PROT U (test code = 2888-6) 16 mg/dL CREAT U (test code = 1866944444) 195.4 mg/dL Protein/Creatinine Ratio Uri ne (test code = 6787147128) 0.0-2.[address] [facility] HospitalALANINE AMINO TRANSFERASE([id number] 10:54:00* Test Item Value Reference Range Interpretation Comme nts ALTv (test code = 1742-6) 24 U/L 5-35 Lab Interpretation (test cod e = 72659-5) Normal [facility] HospitalCREATININE2020-12-28 10:54:00* Test Item Value Reference Range Interpretation Comme nts CREATININE (test code = 4285516004) 0.48 mg/dL 0.5-1.04 L eGFR Calculation (Non-) (test code = 7474189382) mL/min/1.73m2 eGFR Calculation () (test code = 3242396112) mL/min/1.73m2 PAULO (test code = PAULO) Association of Glomerular Filtration Rate (GFR) and Staging of Kidney Disease* + --+ --+ ------+| GFR (mL/min/1.73 m2) ?| With Kidney Damage ?| ?Without Kidney Damage+ --------+ --------+ +| ?>90 ?| ?Stage one ?| ? Normal ?+ ---+ ---+ -------+| ?60-89 ?| ?Stage two ?| ? Decreased GFR ? + --+ --+ ------+| ?30-59 ?| ?Stage three ?| ? Stage three ? + --+ --+ ------+| ?15-29 ?| ?Stage four ? | ? Stage four ?+ ---+ ---+ -------+| ?<15 (or dialysis) ? ?| ?Stage five ? | ? Stage five ?+ ---+ ---+ -------+ *Each stage assumes the associated GFR level has been in effect for at least three months. ?Stages 1 to 5, with or without kidney disease, indicate chronic kidney disease. Notes: Determination of stages one and two (with eGFR >59mL/min/1.73 m2) requires estimation of kidney damage for at least three months as defined by structural or functional abnormalities of the kidney, manifested by either:Pathological abnormalities or Markers of kidney damage (including abnormalities in the composition of the blood or urine or abnormalities in imaging tests). Lab Interpretation (test code = 40584-2) [facility]normal [facility] (ASPARTATE AMINO TRANSFER)2020-05-12 10:54:00* Test Item Value Reference Range Interpretation Comme nts AST(SGOT) (test code = 6304606881) 29 U/L 13-40 Lab Interpretation (test cod e = 15179-8) Normal [facility] [id number] 10:54:00* Test Item Value Reference Range Interpretation Comme nts URIC ACID (test code = 5411034479) 4.6 mg/dL 2.9-6 Lab Interpretation (test cod e = 37211-7) Normal [facility] WITH [id number] 00:11:00* Test Item Value Reference Range Interpretation Comme nts WBC (test code = 6690-2) See_Comment [Automated messa ge] The system which generated this result transmitted reference range: 4.30 - 11.10 10*3/?L. The reference range was not used to interpret this result as normal/abnormal. RBC (test code = 789-8) See_Comment [Automated messa ge] The system which generated this result transmitted reference range: 3.93 - 5.25 10*6/?L. The reference range was not used to interpret this result as normal/abnormal. HGB (test code = 718-7) 10.8 g/dL 11.6-15 L HCT (test code = 4544-3) 33.7 % 35.7-45.2 L MCV (test code = 787-2) 84.9 fL 80.6-95.5 MCH (test code = 785-6) 27.2 pg 25.9-32.8 MCHC (test code = 786-4) 32.0 g/dL 31.6-35.1 RDW-SD (test code = 85831-6) 42.4 fL 39-49.9 RDW-CV (test code = 788-0) 13.6 % 12-15.5 PLT (test code = 777-3) See_Comment [Automated messa ge] The system which generated this result transmitted reference range: 166 - 358 10*3/?L. The reference range was not used to interpret this result as normal/abnormal. MPV (test code = 11012-8) 11.3 fL 9.5-12.9 NRBC/100 WBC (test code = 1787831652) See_Comment [Automated me ssage] The system which generated this result transmitted reference range: 0.0 - 10.0 /100 WBCs. The reference range was not used to interpret this result as normal/abnormal. NRBC x10^3 (test code = 3380519141) <0.01 See_Comment [Automated messa ge] The system which generated this result transmitted reference range: 10*3/?L. The reference range was not used to interpret this result as normal/abnormal. GRAN MAT (NEUT) % (test code = 770-8) 68.5 % IMM GRAN % (test code = 3304819450) 0.90 % LYMPH % (test code = 736-9) 23.2 % MONO % (test code = 5905-5) 5.6 % EOS % (test code = 713-8) 1.5 % BASO % (test code = 706-2) 0.3 % GRAN MAT x10^3(ANC) (test code = 1485720649) 4.56 10*3/uL 1.88-7.09 IMM GRAN x10^3 (test code = 9729012041) 0.06 10*3/uL 0-0.06 LYMPH x10^3 (test code = 731-0) 1.54 10*3/uL 1.32-3.29 MONO x10^3 (test code = 742-7) 0.37 10*3/uL 0.33-0.92 EOS x10^3 (test code = 711-2) 0.10 10*3/uL 0.03-0.39 BASO x10^3 (test code = 704-7) <0.03 0.01-0.07 Lab Interpretation (test code = 26586-2) [facility]normal [facility]atitis B Surface [id number] 22:15:00 * Test Item Value Reference Range Interpretation Comme nts HBsAg Semi-Quantitative (mary t code = 5195-3) Negative Negative [facility] HospitalType and Screen - ONCE [id number] 21:49:19 * Test Item Value Reference Range Interpretation Comme nts ABO & RH (test code = 20) O POSITIVE Performed at [facility] B Laboratory Services - [facility] Blood [address] [address]Xrsl Free: [phone] No. [id number] IAT (test code = 1185) Negative Performed at [facility] Laboratory Services - [facility] Blood [address] [address]Cjcd Free: [phone] No. [id number] [facility]COVID-[facility] (ID NOW RAPID TESTING)2020-05-11 19:30:00* Test Item Value Reference Range Interpretation Comme nts SARS-CoV-2 Rapid ID NOW (test code = 29263-8) Positive Not Detected A PAULO (test code = PAULO) ID NOW COVID-19 As say is an isothermal nucleic acid amplification test intended for the qualitative detection of nucleic acid from SARS-CoV-2 viral RNA in nasopharyngeal ([employer]ER) specimens. It is used under Emergency Use Authorization (EUA) by FDA. The limit of detection (LOD) of the assay is 125 Genome Equivalents/mL. A positive result is indicative of the presence of SARS-CoV-2 RNA. ?Clinical correlation with patient history and other diagnostic information is necessary to determine patient infection status. A negative (Not Detected) result does not preclude SARS-CoV-2 infection. In patients with clinical symptoms and other tests that are consistent with SARS-CoV-2 infection, negative results should be treated as presumptive negative and a new specimen should be tested with alternative PCR molecular test. Invalid: Please collect a new specimen for repeat patient testing if clinically indicated. Lab Interpretation (test code = 18992-6) Abnormal [facility] URINALYSIS W SPECIFIC [id number] 21:55:00* Test Item Value Reference Range Interpretation Comme nts POCT U SP GRAV (test code = 3255) . 1.005-1.025 POCT PH U (test code = 3254) . 5-8 POCT U LEUK EST (test code = 3263) . Negative - Negative POCT U NIT (test code = 3262) . Negative - Negati ve POCT U PROT (test code = 3259) 1+ Negative - Negat amanda POCT U GLU (test code = 3256) negative Negative - Negati ve POCT U KETONE (test code = 3258) . Negative - Neg ative POCT U UROBILI (test code = 3260) . 0.2-1 POCT U BILI (test code = 3261) . Negative - Negat amanda POCT U BLD (test code = 3257) . Negative - Negati ve POCT U COLOR (test code = 3266) POCT U APPEAR (test code = 3267) [facility] URINALYSIS W SPECIFIC [id number] 21:42:00* Test Item Value Reference Range Interpretation Comme nts POCT U SP GRAV (test code = 3255) . 1.005-1.025 POCT PH U (test code = 3254) 7 mg/dl 5-8 POCT U LEUK EST (test code = 3263) 1+ Negative - Negative POCT U NIT (test code = 3262) neg Negative - Negati ve POCT U PROT (test code = 3259) 1+ Negative - Negat amanda POCT U GLU (test code = 3256) neg Negative - Negati ve POCT U KETONE (test code = 3258) neg Negative - Neg ative POCT U UROBILI (test code = 3260) . 0.2-1 POCT U BILI (test code = 3261) . Negative - Negat amanda POCT U BLD (test code = 3257) neg Negative - Negati ve POCT U COLOR (test code = 3266) POCT U APPEAR (test code = 3267) [facility] URINALYSIS W SPECIFIC [id number] 22:18:00* Test Item Value Reference Range Interpretation Comme nts POCT U SP GRAV (test code = 3255) . 1.005-1.025 POCT PH U (test code = 3254) . 5-8 POCT U LEUK EST (test code = 3263) . Negative - N egative POCT U NIT (test code = 3262) . Negative - Negati ve POCT U PROT (test code = 3259) Trace Negative - Negat amanda POCT U GLU (test code = 3256) Trace Negative - Negati ve POCT U KETONE (test code = 3258) . Negative - Neg ative POCT U UROBILI (test code = 3260) . 0.2-1 POCT U BILI (test code = 3261) . Negative - Negat amanda POCT U BLD (test code = 3257) . Negative - Negati ve POCT U COLOR (test code = 3266) POCT U APPEAR (test code = 3267) [facility] URINALYSIS W SPECIFIC [id number] 21:21:00* Test Item Value Reference Range Interpretation Comme nts POCT U SP GRAV (test code = 3255) . 1.005-1.025 POCT PH U (test code = 3254) 8 mg/dl 5-8 POCT U LEUK EST (test code = 3263) 2+ Negative - Negative POCT U NIT (test code = 3262) Neg Negative - Negati ve POCT U PROT (test code = 3259) Trace Negative - Negat amanda POCT U GLU (test code = 3256) Neg Negative - Negati ve POCT U KETONE (test code = 3258) None Negative - Neg ative POCT U UROBILI (test code = 3260) . 0.2-1 POCT U BILI (test code = 3261) . Negative - Negat amanda POCT U BLD (test code = 3257) Neg Negative - Negati ve POCT U COLOR (test code = 3266) POCT U APPEAR (test code = 3267) [facility] URINALYSIS W SPECIFIC [id number] 21:21:00* Test Item Value Reference Range Interpretation Comme nts POCT U SP GRAV (test code = 3255) . 1.005-1.025 POCT PH U (test code = 3254) 8 mg/dl 5-8 POCT U LEUK EST (test code = 3263) 2+ Negative - Negative POCT U NIT (test code = 3262) Neg Negative - Negati ve POCT U PROT (test code = 3259) Trace Negative - Negat amanda POCT U GLU (test code = 3256) Neg Negative - Negati ve POCT U KETONE (test code = 3258) None Negative - Neg ative POCT U UROBILI (test code = 3260) . 0.2-1 POCT U BILI (test code = 3261) . Negative - Negat amanda POCT U BLD (test code = 3257) Neg Negative - Negati ve POCT U COLOR (test code = 3266) POCT U APPEAR (test code = 3267) [facility] URINALYSIS W SPECIFIC [id number] 19:31:00* Test Item Value Reference Range Interpretation Comme nts POCT U SP GRAV (test code = 3255) . 1.005-1.025 POCT PH U (test code = 3254) . 5-8 POCT U LEUK EST (test code = 3263) . Negative - N egative POCT U NIT (test code = 3262) . Negative - Negati ve POCT U PROT (test code = 3259) Trace Negative - Negat amanda POCT U GLU (test code = 3256) Neg Negative - Negati ve POCT U KETONE (test code = 3258) . Negative - Neg ative POCT U UROBILI (test code = 3260) . 0.2-1 POCT U BILI (test code = 3261) . Negative - Negat amanda POCT U BLD (test code = 3257) . Negative - Negati ve POCT U COLOR (test code = 3266) POCT U APPEAR (test code = 3267) [facility] URINALYSIS W SPECIFIC [id number] 18:33:00* Test Item Value Reference Range Interpretation Comme nts POCT U SP GRAV (test code = 3255) . 1.005-1.025 POCT PH U (test code = 3254) . 5-8 POCT U LEUK EST (test code = 3263) . Negative - N egative POCT U NIT (test code = 3262) . Negative - Negati ve POCT U PROT (test code = 3259) trace Negative - Negat amanda POCT U GLU (test code = 3256) 1+ Negative - Negati ve POCT U KETONE (test code = 3258) . Negative - Neg ative POCT U UROBILI (test code = 3260) . 0.2-1 POCT U BILI (test code = 3261) . Negative - Negat amanda POCT U BLD (test code = 3257) . Negative - Negati ve POCT U COLOR (test code = 3266) POCT U APPEAR (test code = 3267) [facility] URINALYSIS W SPECIFIC [id number] 18:31:00* Test Item Value Reference Range Interpretation Comme nts POCT U SP GRAV (test code = 3255) . 1.005-1.025 POCT PH U (test code = 3254) . 5-8 POCT U LEUK EST (test code = 3263) . Negative - N egative POCT U NIT (test code = 3262) . Negative - Negati ve POCT U PROT (test code = 3259) trace Negative - Negat amanda POCT U GLU (test code = 3256) neg Negative - Negati ve POCT U KETONE (test code = 3258) . Negative - Neg ative POCT U UROBILI (test code = 3260) . 0.2-1 POCT U BILI (test code = 3261) . Negative - Negat amanda POCT U BLD (test code = 3257) . Negative - Negati ve POCT U COLOR (test code = 3266) . POCT U APPEAR (test code = 3267) [facility] URINALYSIS W SPECIFIC [id number] 18:31:00* Test Item Value Reference Range Interpretation Comme nts POCT U SP GRAV (test code = 3255) . 1.005-1.025 POCT PH U (test code = 3254) . 5-8 POCT U LEUK EST (test code = 3263) . Negative - N egative POCT U NIT (test code = 3262) . Negative - Negati ve POCT U PROT (test code = 3259) trace Negative - Negat amanda POCT U GLU (test code = 3256) neg Negative - Negati ve POCT U KETONE (test code = 3258) . Negative - Neg ative POCT U UROBILI (test code = 3260) . 0.2-1 POCT U BILI (test code = 3261) . Negative - Negat amanda POCT U BLD (test code = 3257) . Negative - Negati ve POCT U COLOR (test code = 3266) . POCT U APPEAR (test code = 3267) [facility] URINALYSIS W SPECIFIC [id number] 18:31:00* Test Item Value Reference Range Interpretation Comme nts POCT U SP GRAV (test code = 3255) . 1.005-1.025 POCT PH U (test code = 3254) . 5-8 POCT U LEUK EST (test code = 3263) . Negative - N egative POCT U NIT (test code = 3262) . Negative - Negati ve POCT U PROT (test code = 3259) trace Negative - Negat amanda POCT U GLU (test code = 3256) neg Negative - Negati ve POCT U KETONE (test code = 3258) . Negative - Neg ative POCT U UROBILI (test code = 3260) . 0.2-1 POCT U BILI (test code = 3261) . Negative - Negat amanda POCT U BLD (test code = 3257) . Negative - Negati ve POCT U COLOR (test code = 3266) . POCT U APPEAR (test code = 3267) [facility] URINALYSIS W SPECIFIC [id number] 18:31:00* Test Item Value Reference Range Interpretation Comme nts POCT U SP GRAV (test code = 3255) . 1.005-1.025 POCT PH U (test code = 3254) . 5-8 POCT U LEUK EST (test code = 3263) . Negative - N egative POCT U NIT (test code = 3262) . Negative - Negati ve POCT U PROT (test code = 3259) trace Negative - Negat amanda POCT U GLU (test code = 3256) neg Negative - Negati ve POCT U KETONE (test code = 3258) . Negative - Neg ative POCT U UROBILI (test code = 3260) . 0.2-1 POCT U BILI (test code = 3261) . Negative - Negat amanda POCT U BLD (test code = 3257) . Negative - Negati ve POCT U COLOR (test code = 3266) . POCT U APPEAR (test code = 3267) [facility] URINALYSIS W SPECIFIC [id number] 21:05:00* Test Item Value Reference Range Interpretation Comme nts POCT U SP GRAV (test code = 3255) . 1.005-1.025 POCT PH U (test code = 3254) . 5-8 POCT U LEUK EST (test code = 3263) . Negative - N egative POCT U NIT (test code = 3262) . Negative - Negati ve POCT U PROT (test code = 3259) trace Negative - Negat amanda POCT U GLU (test code = 3256) neg Negative - Negati ve POCT U KETONE (test code = 3258) . Negative - Neg ative POCT U UROBILI (test code = 3260) . 0.2-1 POCT U BILI (test code = 3261) . Negative - Negat amanda POCT U BLD (test code = 3257) . Negative - Negati ve POCT U COLOR (test code = 3266) POCT U APPEAR (test code = 3267) [facility] URINALYSIS W SPECIFIC [id number] 21:05:00* Test Item Value Reference Range Interpretation Comme nts POCT U SP GRAV (test code = 3255) . 1.005-1.025 POCT PH U (test code = 3254) . 5-8 POCT U LEUK EST (test code = 3263) . Negative - N egative POCT U NIT (test code = 3262) . Negative - Negati ve POCT U PROT (test code = 3259) trace Negative - Negat amanda POCT U GLU (test code = 3256) neg Negative - Negati ve POCT U KETONE (test code = 3258) . Negative - Neg ative POCT U UROBILI (test code = 3260) . 0.2-1 POCT U BILI (test code = 3261) . Negative - Negat amanda POCT U BLD (test code = 3257) . Negative - Negati ve POCT U COLOR (test code = 3266) POCT U APPEAR (test code = 3267) [facility] URINALYSIS W SPECIFIC [id number] 18:32:00* Test Item Value Reference Range Interpretation Comme nts POCT U SP GRAV (test code = 3255) . 1.005-1.025 POCT PH U (test code = 3254) . 5-8 POCT U LEUK EST (test code = 3263) . Negative - N egative POCT U NIT (test code = 3262) . Negative - Negati ve POCT U PROT (test code = 3259) TRACE Negative - Negat amanda POCT U GLU (test code = 3256) Negative - Negati ve POCT U KETONE (test code = 3258) . Negative - Neg ative POCT U UROBILI (test code = 3260) . 0.2-1 POCT U BILI (test code = 3261) . Negative - Negat amanda POCT U BLD (test code = 3257) . Negative - Negati ve POCT U COLOR (test code = 3266) POCT U APPEAR (test code = 3267) [facility] URINALYSIS W SPECIFIC [id number] 20:29:00* Test Item Value Reference Range Interpretation Comme nts POCT U SP GRAV (test code = 3255) . 1.005-1.025 POCT PH U (test code = 3254) . 5-8 POCT U LEUK EST (test code = 3263) . Negative - N egative POCT U NIT (test code = 3262) . Negative - Negati ve POCT U PROT (test code = 3259) trace Negative - Negat amanda POCT U GLU (test code = 3256) normal Negative - Negati ve POCT U KETONE (test code = 3258) . Negative - Neg ative POCT U UROBILI (test code = 3260) .. 0.2-1 POCT U BILI (test code = 3261) . Negative - Negat amanda POCT U BLD (test code = 3257) . Negative - Negati ve POCT U COLOR (test code = 3266) POCT U APPEAR (test code = 3267) [facility] URINALYSIS W/O SPECIFIC [id number] 19:13:00* Test Item Value Reference Range Interpretation Comme nts POCT PH U (test code = 3254) 5 mg/dl 5-8 POCT U LEUK EST (test code = 3263) Neg Negative - Negative POCT U NIT (test code = 3262) Neg Negative - Negati ve POCT U PROT (test code = 3259) Trace Negative - Negat amanda POCT U GLU (test code = 3256) Neg Negative - Negati ve POCT U KETONE (test code = 3258) None Negative - Neg ative POCT U BLD (test code = 3257) Neg Negative - Negati ve [facility] URINALYSIS W/O SPECIFIC [id number] 19:13:00* Test Item Value Reference Range Interpretation Comme nts POCT PH U (test code = 3254) 5 mg/dl 5-8 POCT U LEUK EST (test code = 3263) Neg Negative - Negative POCT U NIT (test code = 3262) Neg Negative - Negati ve POCT U PROT (test code = 3259) Trace Negative - Negat amanda POCT U GLU (test code = 3256) Neg Negative - Negati ve POCT U KETONE (test code = 3258) None Negative - Neg ative POCT U BLD (test code = 3257) Neg Negative - Negati ve [facility] URINALYSIS W/O SPECIFIC [id number] 19:13:00* Test Item Value Reference Range Interpretation Comme nts POCT PH U (test code = 3254) 5 mg/dl 5-8 POCT U LEUK EST (test code = 3263) Neg Negative - Negative POCT U NIT (test code = 3262) Neg Negative - Negati ve POCT U PROT (test code = 3259) Trace Negative - Negat amanda POCT U GLU (test code = 3256) Neg Negative - Negati ve POCT U KETONE (test code = 3258) None Negative - Neg ative POCT U BLD (test code = 3257) Neg Negative - Negati ve [facility] URINALYSIS W/O SPECIFIC [id number] 19:13:00* Test Item Value Reference Range Interpretation Comme nts POCT PH U (test code = 3254) 5 mg/dl 5-8 POCT U LEUK EST (test code = 3263) Neg Negative - Negative POCT U NIT (test code = 3262) Neg Negative - Negati ve POCT U PROT (test code = 3259) Trace Negative - Negat amanda POCT U GLU (test code = 3256) Neg Negative - Negati ve POCT U KETONE (test code = 3258) None Negative - Neg ative POCT U BLD (test code = 3257) Neg Negative - Negati ve [facility] [id number] 19:12:00* Test Item Value Reference Range Interpretation Comme nts POCT PREG (test code = 1605) Positive On board controls acceptable with C Line (test code = 3574) Yes POCT PREG LOT # (test code = 3575) POCT PREG TEST DATE ( test code = 3576) [facility] [id number] 19:12:00* Test Item Value Reference Range Interpretation Comme nts POCT PREG (test code = 1605) Positive On board controls acceptable with C Line (test code = 3574) Yes POCT PREG LOT # (test code = 3575) POCT PREG TEST DATE ( test code = 3576) [facility] [id number] 19:12:00* Test Item Value Reference Range Interpretation Comme nts POCT PREG (test code = 1605) Positive On board controls acceptable with C Line (test code = 3574) Yes POCT PREG LOT # (test code = 3575) POCT PREG TEST DATE ( test code = 3576) [facility] [id number] 19:12:00* Test Item Value Reference Range Interpretation Comme nts POCT PREG (test code = 1605) Positive On board controls acceptable with C Line (test code = 3574) Yes POCT PREG LOT # (test code = 3575) POCT PREG TEST DATE ( test code = 3576) [facility]"
[2023-09-11] MEDS ORDERED: ONDANSETRON 4 MG/2 ML VIAL ONE (15:51)
[2023-09-11] MEDS ORDERED: MORPHINE 4 MG/ML SYR ONE (15:51)
[2023-09-11 15:52] LABS: Absolute Eosinophils 0.2 K/uL (0-0.5); Absolute Lymphocytes (CBC) 1.8 K/uL (0.7-4.9); Absolute Monocytes 0.9 K/uL (0.1-1.3); Absolute Neutrophil 5.2 K/uL (1.8-8.0); Basophils % 0.4 % (0-1.3); Eosinophils % 2.2 % (0-4.4); Hematocrit 40.5 % (36.0-45.0); Hemoglobin 13.9 g/dL (12.0-15.0); Lymphocytes % 21.8 % (15.3-44.8); MCH 30.4 pg (27.0-35.0); MCHC 34.5 g/dL (32.0-36.0); MCV 88.2 fL (80-100); MPV 7.9 fL (7.6-11.3); Monocytes % 11.6 % (3.3-12.3); Platelets 326 thou/uL (152-406); RBC Red Blood Cell Count 4.59 M/uL (3.86-4.86); Red Cell Distribution Width 13.5 % (12.1-15.2)
[2023-09-11] MEDS ORDERED: NA CHLORIDE 0.9% 1,000 ML ONE (15:52)
[2023-09-11 16:09] LABS: Albumin 4.1 g/dL (3.4-5.0); Anion Gap 6.9 mEq/L (5.0-15.0); Bilirubin Total 0.5 mg/dL (0.2-1.0); Globulin 4.1 g/dL (2.3-3.5); Potassium 3.9 mEq/L (3.5-5.1); Protein, Total 8.2 g/dL (6.4-8.2)
[2023-09-11 16:23] LABS: Specific Gravity 1.022 (1.005-1.030)
[2023-09-11 16:29] LABS: Specific Gravity 1.022 (1.005-1.030); Urine Bacteria 20-50 /HPF (<20); Urine Bilirubin NEGATIVE (Negative); Urine Blood Trace (Negative); Urine Clarity Turbid (Clear); Urine Color Light-Yellow (Yellow); Urine Culture Reflex Order NOT NEEDED; Urine Glucose NEGATIVE (Negative); Urine Ketones NEGATIVE (Negative); Urine Microscopic Reflex YN ORDER UMIC; Urine Mucus Slight /HPF (None Seen); Urine Nitrite NEGATIVE (Negative); Urine Protein NEGATIVE (Negative); Urine RBC <5 /HPF (None Seen); Urine Urobilinogen Normal (Normal); Urine WBC <5 /HPF (<5)
[2023-09-11 16:52] LABS: PT Prothrombin Time 12.8 SECONDS (9.5-12.5); PTT, Activated Partial Thromb 31.6 SECONDS (24.3-36.9); Protime INR 1.17
--- NOTE | 2023-09-11 17:03 | RAD REPORT ---
EXAM DESCRIPTION: CT - Abdomen Pelvis W Contrast - 09/11/2023 4:51 pm CLINICAL HISTORY: Abdominal pain/right flank pain COMPARISON: 2015 TECHNIQUE: Computed axial tomography of the abdomen pelvis was obtained. 100 cc Isovue-300 was admin istered intravenously. Oral contrast was not requested which limits evaluation of bowel and appendix All CT scans are performed using dose optimization technique as appropriate and may include automated exposure control or mA/KV adjustment according to patient size. FINDINGS: The liver, spleen, pancreas, adrenal and kidneys appear unremarkable. There is no evidence of diverticulitis. Normal appendix . 5.6 centimeter fatty mass right adnexal has increased in size since the prior exam. 3.5 centimeter fatty mass left adnexae containing calcification has developed. No significant free fluid IMPRESSION: Bilateral adnexal masses consistent with dermoids
[2023-09-11] MEDS ORDERED: CEFTRIAXONE 1000 MG/VIAL ONE (17:12)
[2023-09-11] MEDS ORDERED: KETOROLAC 30 MG/ML INJ ONE (17:13)
--- NOTE | 2023-09-11 19:15 | RAD REPORT ---
EXAM DESCRIPTION: US - Transvaginal Study Probe - 09/11/2023 6:33 pm CLINICAL HISTORY: Pelvic pain COMPARISON: CT abdomen/pelvis September 11, 2023 FINDINGS: The uterus measures 10 x 4 x 6 centimeters. Endometrial stripe 1.3 centimeters. A fibroid not seen 4.5 x 2.6 x 3.6 centimeter structure probably right ovary. It contains echoes probably dermoid. Blood flow is present within the periphery of the suspected right ovary Left ovary normal in size and echotexture 5.3 centimeter echogenic mass right adnexa consistent with a dermoid. 4 centimeter heterogeneous mass containing bright echoes left adnexal consistent with a dermoid. Small amount of free fluid IMPRESSION: Bilateral dermoids
--- NOTE | 2023-09-11 19:27 | ER ---
Nurse's Notes [facility] Name: Marquita Jauregui Age: 23 yrs Sex: Female : 2000 Arrival Date: 09/11/2023 Time: 14:14 Bed 10 Private MD: Diagnosis: Other and unspecified ovarian cysts Presentation: 09/10 14:25 Chief complaint: Patient states: Right abdominal pain since yesterday along with nj1 nausea. Denies vomiting/diarrhea/fever. States she feels abdominal pressure when she urinates, denies urinary problems. Coronavirus screen: Vaccine status: Patient reports receiving the 2nd dose of the covid vaccine. Ebola Screen: Patient denies travel to an Ebola-affected area in the 21 days before illness onset. Initial Sepsis Screen: Does the patient meet any 2 criteria? HR > 90 bpm. No. Patient's initial sepsis screen is negative. Does the patient have a suspected source of infection? No. Patient's initial sepsis screen is negative. Risk Assessment: Do you want to hurt yourself or someone else? Patient reports no desire to harm self or others. Onset of symptoms was September 10, 2023. 14:25 Method Of Arrival: Ambulatory [facility] 14:25 Acuity: [place] 3 nj1 Triage Assessment: 14:29 General: Appears in no apparent distress. uncomfortable, Behavior is calm, cooperative, nj1 appropriate for age. Pain: Complains of pain in abdomen Pain currently is 7 out of 10 on a pain scale. Aggravated by increased activity, weight bearing, Coughing. Neuro: Level of Consciousness is awake, alert, obeys commands, Oriented to person, place, time, situation. GI: Reports lower abdominal pain, nausea. 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 - Infectious Disease History:: Denies. - Social history:: Smoking status: Patient denies any tobacco usage or history of. Screenin:[address] [facility] ED Fall Risk Assessment (Adult) History of falling in the last 3 months, rs5 including since admission No falls in past 3 months (0 pts) Confusion or Disorientation No (0 pts) Intoxicated or Sedated No (0 pts) Impaired Gait No (0 pts) Mobility Assist Device Used No (0 pt) Altered Elimination No (0 pt) Score/Fall Risk Level 0 - 2 = Low Risk Oriented to surroundings, Maintained a safe environment. Abuse screen: Denies threats or abuse. Nutritional screening: No deficits noted. Tuberculosis screening: No symptoms or risk factors identified. Assessment: 14:31 General: Appears in no apparent distress. uncomfortable, Behavior is calm, cooperative. rs5 Pain: Complains of pain in abdomen Pain currently is 7 out of 10 on a pain scale. Quality of pain is described as aching, Is continuous. Neuro: Level of Consciousness is awake, alert, obeys commands, Oriented to person, place, time, situation. Cardiovascular: Rhythm is regular. Respiratory: Airway is patent Respiratory effort is even, unlabored, Respiratory pattern is regular, symmetrical. GI: Bowel sounds present X 4 quads. Abd is soft and non tender X 4 quads. GI: Reports nausea. : No signs and/or symptoms were reported regarding the genitourinary system. EENT: No signs and/or symptoms were reported regarding the EENT system. Derm: Skin is intact, Skin is pink, warm \T\ dry. Musculoskeletal: Range of motion: intact in all extremities. 15:13 Reassessment: Patient and/or family updated on plan of care and expected duration. Pain rs5 level reassessed. Patient is alert, oriented x 3, equal unlabored respirations, skin warm/dry/pink. 16:11 Reassessment: Patient and/or family updated on plan of care and expected duration. Pain rs5 level reassessed. Patient is alert, oriented x 3, equal unlabored respirations, skin warm/dry/pink. Patient states feeling better. Patient states symptoms have improved. 17:18 Reassessment: No changes from previously documented assessment. rs5 18:39 Reassessment: Patient and/or family updated on plan of care and expected duration. Pain rs5 level reassessed. Patient is alert, oriented x 3, equal unlabored respirations, skin warm/dry/pink. Vital Signs: 14:25 BP 143 / 97; Pulse 97; Resp 16; Temp 99; Pulse Ox 100% on R/A; Weight 85.73 kg; Height nj1 5 ft. 6 in. ; Pain 7/10; 18:02 BP 135 / 91; Pulse 90; Resp 17; Pulse Ox 99% on R/A; rs5 19:36 BP 128 / 93; Pulse 87; Resp 16 S; Pulse Ox 100% on R/A; as6 14:25 Body Mass Index 30.51 (85.73 kg, 167.64 cm) nj1 14:25 Pain Scale: Adult [facility] ED Course: 14:17 Patient arrived in ED. im 14:22 Milena Manning PA-C is PHCP. sb4 14:22 Nayla Reyes MD is Attending Physician. sb4 14:28 Triage completed. nj1 14:29 Arm band placed on right wrist. nj1 14:31 Patient has correct armband on for positive identification. Placed in gown. Bed in low rs5 position. Call light in reach. Side rails up X2. 14:31 No provider procedures requiring assistance completed. rs5 14:39 Inserted saline lock: 20 gauge in right antecubital area, using aseptic technique. rs5 Blood collected. 15:15 Daniel Walden, RJ is Primary Nurse. rs5 16:53 CT Abd/Pelvis - IV Contrast Only In Process Unspecified. EDMS 18:09 PHCP role handed off by Milena Manning PA-C cp 18:09 Deepak Rothman PA is PHCP. cp 18:35 US Transvaginal Study (Probe) In Process Unspecified. EDMS 19:25 Jinny Alexander MD is Referral Physician. cp 19:36 Provided Education on: follow up, rx teaching . as6 19:36 IV discontinued, intact, bleeding controlled, No redness/swelling at site. Pressure as6 dressing applied. Administered Medications: 15:30 Drug: NS 0.9% IV 1000 ml IV at 1 bolus Per protocol; 1000 mL bolus Route: IV; Rate: 1 rs5 bolus; Site: right antecubital; 19:34 Follow up: Response: No adverse reaction; IV Status: Completed infusion; IV Intake: as6 1000ml 15:30 Drug: Ondansetron IVP 4 mg IVP once; over 2 minutes Route: IVP; Site: right antecubital;rs5 19:34 Follow up: Response: No adverse reaction as6 15:30 Drug: morphine IVP or IV 4 mg IVP once over 4 mins Route: IVP; Infused Over: 4 mins; rs5 Site: right antecubital; 19:34 Follow up: Response: No adverse reaction as6 17:11 Drug: Ketorolac IVP 30 mg IVP once Route: IVP; Site: left antecubital; rs5 19:34 Follow up: Response: No adverse reaction as6 17:15 Drug: Rocephin IV 1 grams IV at calculated rate once; Given slow IV push per pharmacy rs5 instructions Route: IV; Rate: calculated rate; Site: left antecubital; 19:35 Follow up: Response: No adverse reaction; IV Status: Completed infusion; IV Intake: [id number] Medication: 14:31 VIS not applicable for this client. rs5 Intake: 19:34 IV: 1000ml; Total: 1000ml. as6 19:35 IV: 10ml; Total: 1010ml. as6 Outcome: 19:26 Discharge ordered by MD. cp 19:35 Discharged to home ambulatory, with family, as6 19:35 Condition: stable 19:35 Discharge instructions given to patient, family, Instructed on discharge instructions, follow up and referral plans. medication usage, Demonstrated understanding of instructions, follow-up care, medications, Prescriptions given X 3, 19:36 Patient left the ED. as6 Signatures: Dispatcher [employer] EDMS Deepak Rothman PA PA cp Slawson, Ashby, RN RN as6 Milena Manning PA-C PAGilmer [email or web address] Daniel Walden RN RN rs5 Areli Henriquez RN RN nj1 Leanna Fuentes
--- NOTE | 2023-09-11 19:27 | EDPHYS ---
Physician Documentation [facility] Name: Marquita Jauregui Age: 23 yrs Sex: Female : 2000 Arrival Date: 09/11/2023 Time: 14:14 Bed 10 Private MD: ED Physician Nayla Reyes HPI: 09/10 14:34 This 23 yrs old Female presents to ER via Ambulatory with complaints of sb4 Abdominal Pain, Nausea. 14:34 The patient presents with abdominal pain right lower quadrant. Onset: The sb4 symptoms/episode began/occurred yesterday. The symptoms do not radiate. Associated signs and symptoms: Pertinent positives: nausea, Pertinent negatives: diarrhea, fever. The symptoms are described as pressure. Modifying factors: The symptoms are alleviated by nothing, the symptoms are aggravated by jumping, pressure, urinating. The patient has not experienced similar symptoms in the past. The patient has not recently seen a physician. 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 - Infectious Disease History:: Denies. - Social history:: Smoking status: Patient denies any tobacco usage or history of. ROS: 14:34 Constitutional: Negative for fever, chills, and weight loss, sb4 14:34 Abdomen/GI: Positive for abdominal pain, nausea, 14:34 All other systems are negative, Exam: 14:34 Head/Face: Normocephalic, atraumatic. Eyes: Extra-ocular motions intact. Periorbital sb4 areas with no swelling, redness, or edema. ENT: Mucous membranes moist. Cardiovascular: Regular rate and rhythm with a normal S1 and S2. Respiratory: Lungs have equal breath sounds bilaterally, clear to auscultation and percussion. No rales, rhonchi or wheezes noted. No increased work of breathing, no retractions or nasal flaring. MS/ Extremity: Pulses equal, no cyanosis. Neurovascular intact. Full, normal range of motion. 14:34 Constitutional: The patient appears alert, awake, uncomfortable, 14:34 Abdomen/GI: Inspection: abdomen appears normal, Bowel sounds: normal, Palpation: soft, moderate abdominal tenderness, in the right lower quadrant, 14:34 Skin: Appearance: Temperature: warm, Moisture: diaphoretic, Vital Signs: 14:25 BP 143 / 97; Pulse 97; Resp 16; Temp 99; Pulse Ox 100% on R/A; Weight 85.73 kg; Height nj1 5 ft. 6 in. ; Pain 7/10; 18:02 BP 135 / 91; Pulse 90; Resp 17; Pulse Ox 99% on R/A; rs5 19:36 BP 128 / 93; Pulse 87; Resp 16 S; Pulse Ox 100% on R/A; as6 14:25 Body Mass Index 30.51 (85.73 kg, 167.64 cm) nj1 14:25 Pain Scale: Adult nj1 MDM: 14:33 Patient medically screened. sb4 14:34 Differential diagnosis: appendicitis, Ectopic , Ureterolithiasis, urinary sb4 tract infection. 09/11 08:08 Data reviewed: vital signs, nurses notes, lab test result(s), radiologic studies, and sb4 as a result, I will discharge patient. 09/10 14:34 Order name: CBC with Diff; Complete Time: 15:55 sb4 09/10 14:34 Order name: CMP; Complete Time: 16:14 sb4 09/10 19:16 Interpretation: Reviewed. cp 09/10 14:34 Order name: Lipase; Complete Time: 16:14 sb4 09/10 14:34 Order name: Test, Urine; Complete Time: 16:31 sb4 09/10 14:34 Order name: Urinalysis w/ reflexes; Complete Time: 16:31 sb4 09/10 14:34 Order name: Blood Culture Adult (2) sb4 09/10 14:34 Order name: Lactate w/ 2H reflex if indic.; Complete Time: 16:14 sb4 09/10 14:34 Order name: Protime (+inr); Complete Time: 16:56 sb4 09/10 14:34 Order name: Ptt, Activated; Complete Time: 16:56 sb4 09/10 14:34 Order name: CT Abd/Pelvis - IV Contrast Only; Complete Time: 17:09 sb4 09/10 17:11 Order name: US Transvaginal Study (Probe); Complete Time: 19:16 sb4 09/10 14:34 Order name: IV Saline Lock; Complete Time: 16:04 sb4 09/10 14:34 Order name: Labs collected and sent; Complete Time: 16:04 sb4 Administered Medications: 09/10 15:30 Drug: NS 0.9% IV 1000 ml IV at 1 bolus Per protocol; 1000 mL bolus Route: IV; Rate: 1 rs5 bolus; Site: right antecubital; 19:34 Follow up: Response: No adverse reaction; IV Status: Completed infusion; IV Intake: as6 1000ml 15:30 Drug: Ondansetron IVP 4 mg IVP once; over 2 minutes Route: IVP; Site: right antecubital;rs5 19:34 Follow up: Response: No adverse reaction as6 15:30 Drug: morphine IVP or IV 4 mg IVP once over 4 mins Route: IVP; Infused Over: 4 mins; rs5 Site: right antecubital; 19:34 Follow up: Response: No adverse reaction as6 17:11 Drug: Ketorolac IVP 30 mg IVP once Route: IVP; Site: left antecubital; rs5 19:34 Follow up: Response: No adverse reaction as6 17:15 Drug: Rocephin IV 1 grams IV at calculated rate once; Given slow IV push per pharmacy rs5 instructions Route: IV; Rate: calculated rate; Site: left antecubital; 19:35 Follow up: Response: No adverse reaction; IV Status: Completed infusion; IV Intake: [id number] Disposition: 18:00 I reviewed the patient's care provided by the Advanced Practice Provider and agree with gb1 the diagnosis and treatment plan. Disposition Summary: 09/11/23 19:26 Discharge Ordered Notes: Location: Home cp Problem: new cp Symptoms: have improved cp Condition: Stable cp Diagnosis - Other and unspecified ovarian cysts cp Followup: cp - With: Jinny Alexander MD - When: 1 week - Reason: Recheck today's complaints Discharge Instructions: - Discharge Summary Sheet cp - Ovarian Cyst cp Forms: - Medication Reconciliation Form cp - Antibiotic Education cp - Prescription Opioid Use cp - Patient Portal Instructions cp - Leadership Thank You Letter cp Prescriptions: - Ibuprofen 800 mg Oral Tablet - take 1 tablet ORAL route every 8 hours As needed take with food; 30 tablet; cp Refills: 0, Product Selection Permitted - Zofran 4 mg Oral Tablet - take 1 tablet ORAL route every 12 hours As needed; 20 tablet; Refills: 0, cp Product Selection Permitted - Tramadol 50 mg Oral Tablet - take 1 tablet ORAL route every 8 hours as needed; 12 tablet; Refills: 0, cp Product Selection Permitted Signatures: Dispatcher [employer] Deepak Peoples PA PA cp Brown, Sophia, PA-C PA-C sb4 Daniel Walden RN RN rs5 Areli Henriquez RN RN nj1 Nayla Reyes MD MD gb1 Jarad Noriega RN as6
[2023-09-11 20:15] VITALS: BP 128/93; TEMP 99; O2SAT 100
== END 2023-09-11 19:36 | disposition home or self-care (01) ==
LOC: ER 14:14
DX: N83.292 Other ovarian cyst, left side (principal); N83.291 Other ovarian cyst, right side
CPT/HCPCS: 87040 ×2; 85025; 81001; 36415; 81025; 85610; 83605; 85730; 83690; 80053; 74177; 76830; J2405; J7030; J0696; 99284

== ENCOUNTER 2023-10-10 12:22 | Emergency (ER) | payer BC ==
--- OUTSIDE RECORDS SUMMARY | 2023-10-10 12:27 | XMS REPORT | Continuity of Care Document ---
Author Name Unknown Address [address] [facility] [address] [place] [address] [facility] [address] [facility] [place] [address] Care Team Providers Care Pest Control Supervisor Name Role Phone TRACY BARNES Primary Care Physician JAYLA Osborne Attending Clinician Jayla Patel CNM Attending Clinician [phone] HELEN METZ Attending Clinician HELEN Lancaster Attending Clinician TRACY Bansal Attending Clinician Unavail ousmane Barnes Tracy KRISHNA Attending Clinician + Doctor Unassigned, [place] Attending Clinician U Dhiraj Reno DO Attending Clinician [phone] [facility]ending Clinician Keira Poon MD Attending Clinician [phone] Jonatan Cevallos Attending Clinician + [phone] JONATAN BATES Attending Clinician Lisette walter [facility] Attending Clinician Unavailable Ultrasound, [facility] Attending Clinician Jayden Robertson MD Attending Clinician [phone] [facility] Unavailable 5, [facility] Usg Room Attending Clinician Rima Garza Attending Clinician [phone] ROYAL, SEBASTIAN Attending Clinician Keira Barnes MD M Admitting Clinician Payers Payer Name Policy Type Policy Number Effective Date Expirati on Date Source [employer] MEDICAID [id number] 2019 00:00:00 [facility] [id number] 2023 00:00:00 Problems Condition Name Condition Details Condition Category Status Onset Date Resolution Date Last Treatment Date Treating Clinician Comments Source Deep pain on intercours e Deep Pain on Intercours e Problem Active -15 00:00: 00 [facility] Dysmenorrh ea Dysmenorrh ea Problem Active -15 00:00: 00 [facility] Pain in pelvis Pain in Pelvis Problem Active -15 00:00: 00 [facility] Excessive and frequent menstruati on Excessive and Frequent Menstruati on Problem Active -15 00:00: 00 [facility] Pelvic mass Pelvic Mass Problem Active 15 00:00: 00 [facility] Other general counseling and advice for contracept amanda management Other general counseling and advice for contracept amanda management Disease Active 2- 00:00: 00 [facility] Nexplanon removal Nexplanon removal Disease Active 2-19 00:00: 00 [facility] care and examinatio n of lactating mother care and examinatio n of lactating mother Disease Active - 00:00: 00 [facility] 38 weeks gestation of 38 weeks gestation of Disease Active 2019-05 00:00: 00 [facility] Obesity (BMI 30-39.9) Obesity (BMI 30-39.9) Disease Active 2019-05 00:00: 00 [facility] Gestationa l hypertensi on Gestationa l hypertensi on Disease Active 2019-05 00:00: 00 [facility] Gestationa l hypertensi on Gestationa l hypertensi on Disease Active 2019-05 00:00: 00 [facility] Abdominal pain, epigastric Abdominal pain, epigastric Disease Active 2019-05 00:00: 00 [facility] Elevated blood pressure reading without diagnosis of hypertensi on Elevated blood pressure reading without diagnosis of hypertensi on Disease Active 2019-05 00:00: 00 [facility] Pain of round ligament affecting , antepartum Pain of round ligament affecting , antepartum Disease Active 2019-05 00:00: 00 [facility] BV (bacterial vaginosis) BV (bacterial vaginosis) Disease Active 01-15 00:00: 00 [facility] Susceptibl e to varicella (non-immun e), currently Susceptibl e to varicella (non-immun e), currently Disease Active 10-28 00:00: 00 Overview: Formattin g of this note might be different from the original. Address pp [facility] Supervisio n of high-risk Supervisio n of high-risk Disease Active 10-25 00:00: 00 [facility] History of miscarriag e History of miscarriag e Disease Active 10-25 00:00: 00 [facility] History of removal of cyst History of removal of cyst Disease Active 10-25 00:00: 00 Overview: Formattin g of this note might be different from the original. Ovarian cyst in 2012 [facility] Allergies, Adverse Reactions, Alerts Allergy Name Allergy Type Status Severity Reaction(s) Onset Date Inactive Date Treating Clinician Comments Source NO KNOWN ALLERGIE S Drug Class Active [facility] Social History Social Habit Start Date Stop Date Quantity Comments Source ASSERTION 2019-08-31 00:00:00 [facility] 2023-08-09 00:00:00 2023-08-09 00:00:00 Ex-drinker (finding) [facility] History of Social function 2023-08-09 00:00:00 2023-08-09 00:00:00 [facility] Tobacco use and exposure 2023-08-09 00:00:00 2023-08-09 00:00:00 Smokeless tobacco non-user [facility] Exposure to SARS-CoV-2 (event) 2020-06-18 00:00:00 2020-07-18 13:52:00 Not sure [facility] Sex Assigned At 2000 00:00:00 2000 00:00:00 [facility] Smoking Status Start Date Stop Date Source Never Smoker [facility] Medications Ordered Medication Name Filled Medication Name Start Date Stop Date Current Medication? Ordering Clinician Indication Dosage Frequency Signature (SIG) Comments Components Source metroNIDAZO LE 500 mg tablet 07-21 00:00: 00 08-08 00:00 :00 No [id number] 500mg Take 1 tablet by mouth 2 (two) times daily. [facility] etonogestre L (NEXPLANON) implant 68 mg 07-04 23:15: 00 07-04 22:03 :00 No 68mg [facility] vit/iron fum/folic ac ( 1 + 1 ORAL) 2019-05 16:56: 47 05-13 00:00 :00 No Take by mouth. [facility] varicella virus vaccine live (VARIVAX (PF)) injection 0.5 mL 2019-05 12:49: 50 05-13 17:52 :00 No .5mL 0.5 mL, Subcutaneo us, ONCE-PRIOR TO DISCHARGE, 1 dose, Starting Tue05/13/20 at 0649, Until Discontinu ed, Routine, Give vaccine prior to discharge [facility] vitamin w/FA tablet 2019-05 00:00: 00 Yes [id number] 1{tbl} Take 1 tablet by mouth daily. [facility] ibuprofen 600 mg tablet 2019-05 00:00: 00 08-08 00:00 :00 No [id number] 600mg Take 1 tablet by mouth every 6 (six) hours as needed for Pain (scale 4-6). [facility] simethicone 80 mg chewable tablet 2019-05 00:00: 00 08-08 00:00 :00 No [id number] 160mg Take 2 tablets by mouth after meals and at bedtime as needed for Gas. [facility] vitamin w/FA tablet 2019-05 00:00: 00 08-08 00:00 :00 No [id number] 1{tbl} Take 1 tablet by mouth daily. [facility] ferrous sulfate 325 mg (65 mg iron) tablet 2019-05 00:00: 00 08-08 00:00 :00 No [id number] 325mg Take 1 tablet by mouth 2 (two) times daily. [facility] docusate calcium 240 mg capsule 2019-05 00:00: 00 08-08 00:00 :00 No [id number] 240mg Take 1 capsule by mouth once daily as needed for Constipati on. [facility] acetaminoph en 325 mg tablet 2019-05 00:00: 00 05-14 05:59 :00 No [id number] 650mg Take 2 tablets by mouth every 6 (six) hours as needed for Pain (scale 1-3). [facility] rho(D) immune globulin (RHOGAM) syringe 300 mcg 2019-05 16:20: 21 Yes 300ug 300 mcg, Intramuscu lar, ONCE, For 1 dose, Conditiona l, Routine [facility] ondansetron (ZOFRAN (PF)) injection 4 mg 2019-05 16:20: 17 Yes 4mg 4 mg, Slow IV Push, Q8HPRN, Starting Tue05/12/20 at 1020, Until Discontinu ed, Routine, Nausea and Vomiting (N/V) [facility] simethicone (GAS RELIEF (SIMETHICON E)) chewable tablet 160 mg 2019-05 16:20: 17 Yes 160mg 160 mg, Oral, PC+HSPRN, Starting Tue05/12/20 at 1020, Until Discontinu ed, Routine, Gas [facility] magnesium hydroxide (MILK OF MAGNESIA) 400 mg/5 mL suspension 30 mL 2019-05 16:20: 17 Yes 30mL 30 mL, Oral, QDAILYPRN, Starting Tue05/12/20 at 1020, Until Discontinu ed, Routine, Constipati on [facility] ibuprofen (IBU) tablet 600 mg 2019-05 16:20: 16 Yes 600mg 600 mg, Oral, Q6HPRN, Starting Tue05/12/20 at 1020, Until Discontinu ed, Routine, Pain (scale 4-6) [facility] acetaminoph en (TYLENOL) tablet 650 mg 2019-05 16:20: 16 Yes 650mg 650 mg, Oral, Q6HPRN, Starting Tue05/12/20 at 1020, Until Discontinu ed, Routine, Pain (scale 1-3) [facility] diphenhydrA MINE (BENADRYL) tablet 25 mg 2019-05 16:20: 16 Yes 25mg 25 mg, Oral, Q6HPRN, Starting Tue05/12/20 at 1020, Until Discontinu ed, Routine, Sleep, Itching [facility] diphenhydrA MINE-0.9 % sod.chlr (BENADRYL) 25 mg/50 mL piggyback 25 mg 2019-05 16:20: 16 Yes 25mg 25 mg, IV Piggyback, Administer over 30 Minutes, Q6HPRN, Starting Tue05/12/20 at 1020, Until Discontinu ed, Routine, Itching [facility] docusate calcium (SURFAK) capsule 240 mg 2019-05 16:20: 16 Yes 240mg 240 mg, Oral, QDAILYPRN, Starting Tue05/12/20 at 1020, Until Discontinu ed, Routine, Constipati on [facility] benzocaine- menthol (DERMOPLAST ) 20-0.5 % topical spray 2019-05 16:20: 16 Yes Topical, PRN, Starting Tue05/12/20 at 1020, Until Discontinu ed, Routine, Perineum discomfort [facility] LR 1000 mL + oxytocin 20 units IV Solution 2019-05 15:00: 00 05-12 15:00 :00 No at 125 mL/hr, IV Infusion, ONCE, 1 dose, Tue05/12/20 at 0900, Routine [facility] sodium citrate-cit aria acid (BICITRA) 500-334 mg/5 mL solution 30 mL 2019-05 07:41: 03 05-12 09:27 :00 No 30mL 30 mL, Oral, PRE-PROCED URE ONCE, 1 dose, Starting 05/12/20 at 0141, Until Discontinu ed, Routine, Surgery/Pr ocedure [facility] lactated ringers IV infusion 500 mL 2019-05 07:41: 03 05-12 13:43 :00 No 500mL at 999 mL/hr, 500 mL, IV Infusion, PRN - SEE INSTRUCTIO NS, 1 dose, Starting Tue05/12/20 at 0141, Until Discontinu ed, Routine [facility] butorphanol (STADOL) injection 1 mg 2019-05 05:15: 11 05-12 16:20 :22 No 1mg 1 mg, IV Push, Q3HPRN, Starting [place] 05/11/20 at 2315, Until Tue05/12/20 at 1020, Routine, Pain (scale 1-3) [facility] butorphanol (STADOL) injection 1 mg 2019-05 00:30: 00 05-11 23:27 :00 No 1mg 1 mg, IV Push, ONCE, 1 dose, [place] 05/11/20 at 1830, Routine [facility] D5W-LR IV infusion 1,000 mL 2019-05 20:30: 00 05-12 16:20 :22 No 1000mL at 125 mL/hr, IV Infusion, CONTINUOUS , Starting 05/11/20 at 1430, Until Tue05/12/20 at 1020, Routine [facility] LR 1000 mL + oxytocin 20 units IV Solution 2019-05 20:27: 04 05-12 16:20 :22 No 2mU/min at 6-120 mL/hr, IV Infusion, TITRATE, Starting 05/11/20 at 1427, Until Tue05/12/20 at 1020, GAYLE [facility] metroNIDAZO LE 500 mg tablet 01-15 00:00: 00 05-13 00:00 :00 No [id number] 500mg Take 1 tablet by mouth 2 (two) times daily. [facility] vit/iron fum/folic ac ( 1 + 1 ORAL) 612 19:29: 37 Yes Take by mouth. [facility] Immunizations Ordered Immunization Name Filled Immunization Name Date Status Comments Source Varicella (varivax)(chicken pox) 2020-05-13 00:00:00 Completed [facility] Varicella (varivax)(chicken pox) 2020-05-13 00:00:00 Completed [facility] Varicella (varivax)(chicken pox) 2020-05-13 00:00:00 Completed [facility] Varicella (varivax)(chicken pox) 2020-05-13 00:00:00 Completed [facility] Varicella (varivax)(chicken pox) 2020-05-13 00:00:00 Completed [facility] Varicella (varivax)(chicken pox) 2020-05-13 00:00:00 Completed [facility] Varicella (varivax)(chicken pox) 2020-05-13 00:00:00 Completed [facility] Varicella (varivax)(chicken pox) 2020-05-13 00:00:00 Completed [facility] Varicella (varivax)(chicken pox) 2020-05-13 00:00:00 Completed [facility] Varicella (varivax)(chicken pox) 2020-05-13 00:00:00 Completed [facility] Varicella (varivax)(chicken pox) 2020-05-13 00:00:00 Completed [facility] Varicella (varivax)(chicken pox) 2020-05-13 00:00:00 Completed [facility] Varicella (varivax)(chicken pox) 2020-05-13 00:00:00 Completed [facility] Varicella (varivax)(chicken pox) 2020-05-13 00:00:00 Completed [facility] Varicella (varivax)(chicken pox) 2020-05-13 00:00:00 Completed [facility] Varicella (varivax)(chicken pox) 2020-05-13 00:00:00 Completed [facility] TDAP 2020-03-13 00:00:00 Completed [facility] TDAP 2020-03-13 00:00:00 Completed [facility] TDAP 2020-03-13 00:00:00 Completed [facility] TDAP 2020-03-13 00:00:00 Completed [facility] TDAP 2020-03-13 00:00:00 Completed [facility] TDAP 2020-03-13 00:00:00 Completed [facility] TDAP 2020-03-13 00:00:00 Completed [facility] TDAP 2020-03-13 00:00:00 Completed [facility] TDAP 2020-03-13 00:00:00 Completed [facility] TDAP 2020-03-13 00:00:00 Completed [facility] TDAP 2020-03-13 00:00:00 Completed [facility] TDAP 2020-03-13 00:00:00 Completed [facility] TDAP 2020-03-13 00:00:00 Completed [facility] TDAP 2020-03-13 00:00:00 Completed [facility] TDAP 2020-03-13 00:00:00 Completed [facility] TDAP 2020-03-13 00:00:00 Completed [facility] TDAP 2020-03-13 00:00:00 Completed [facility] TDAP 2020-03-13 00:00:00 Completed [facility] TDAP 2020-03-13 00:00:00 Completed [facility] TDAP 2020-03-13 00:00:00 Completed [facility] TDAP 2020-03-13 00:00:00 Completed [facility] TDAP 2020-03-13 00:00:00 Completed [facility] TDAP 2020-03-13 00:00:00 Completed [facility] TDAP 2020-03-13 00:00:00 Completed [facility] Meningococcal B, OMV Unknown Completed [facility] Meningococcal B, OMV Unknown Completed [facility] MMR Unknown Completed [facility] MMR Unknown Completed [facility] Pneumococcal 7 Conjugate, PCV7 (Prevnar7) Unknown Completed [facility] Pneumococcal 7 Conjugate, PCV7 (Prevnar7) Unknown Completed [facility] IPV Unknown Completed [facility] IPV Unknown Completed [facility] IPV Unknown Completed [facility] IPV Unknown Completed [facility] TDAP Unknown Completed [facility] Varicella (varivax)(chicken pox) Unknown Completed [facility] HPV Unknown Completed [facility] HPV Unknown Completed [facility] HPV Unknown Completed [facility] TDAP Unknown Completed [facility] Varicella (varivax)(chicken pox) Unknown Completed [facility] Varicella (varivax)(chicken pox) Unknown Completed [facility] DTP Unknown Completed [facility] DTP Unknown Completed [facility] DTP Unknown Completed [facility] DTP Unknown Completed [facility] DTP Unknown Completed [facility] Flu Trivalent Unknown Completed [facility] Flu Trivalent Unknown Completed [facility] HEPATITIS A Unknown Completed [facility] HEPATITIS A Unknown Completed [facility] Hep B, Adol or Pedi Dosage Unknown Completed [facility] Hep B, Adol or Pedi Dosage Unknown Completed [facility] Hep B, Adol or Pedi Dosage Unknown Completed [facility] Hib-HbOC Unknown Completed [facility] Hib-HbOC Unknown Completed [facility] Hib-HbOC Unknown Completed [facility] Hib-HbOC Unknown Completed [facility] Meningococcal Polysaccharide (groups A, C, Y and W-135) conjugate vaccine (MCV4P) Unknown Completed [facility] Meningococcal Polysaccharide (groups A, C, Y and W-135) conjugate vaccine (MCV4P) Unknown Completed [facility] Meningococcal B, OMV Unknown Completed [facility] Meningococcal B, OMV Unknown Completed [facility] MMR Unknown Completed [facility] MMR Unknown Completed [facility] Pneumococcal 7 Conjugate, PCV7 (Prevnar7) Unknown Completed [facility] Pneumococcal 7 Conjugate, PCV7 (Prevnar7) Unknown Completed [facility] IPV Unknown Completed [facility] IPV Unknown Completed [facility] IPV Unknown Completed [facility] IPV Unknown Completed [facility] TDAP Unknown Completed [facility] Varicella (varivax)(chicken pox) Unknown Completed [facility] HPV Unknown Completed [facility] HPV Unknown Completed [facility] HPV Unknown Completed [facility] TDAP Unknown Completed [facility] Varicella (varivax)(chicken pox) Unknown Completed [facility] Varicella (varivax)(chicken pox) Unknown Completed [facility] DTP Unknown Completed [facility] DTP Unknown Completed [facility] DTP Unknown Completed [facility] DTP Unknown Completed [facility] DTP Unknown Completed [facility] Flu Trivalent Unknown Completed [facility] Flu Trivalent Unknown Completed [facility] HEPATITIS A Unknown Completed [facility] HEPATITIS A Unknown Completed [facility] Hep B, Adol or Pedi Dosage Unknown Completed [facility] Hep B, Adol or Pedi Dosage Unknown Completed [facility] Hep B, Adol or Pedi Dosage Unknown Completed [facility] Hib-HbOC Unknown Completed [facility] Hib-HbOC Unknown Completed [facility] Hib-HbOC Unknown Completed [facility] Hib-HbOC Unknown Completed [facility] Meningococcal Polysaccharide (groups A, C, Y and W-135) conjugate vaccine (MCV4P) Unknown Completed [facility] Meningococcal Polysaccharide (groups A, C, Y and W-135) conjugate vaccine (MCV4P) Unknown Completed [facility] Meningococcal B, OMV Unknown Completed [facility] Meningococcal B, OMV Unknown Completed [facility] MMR Unknown Completed [facility] MMR Unknown Completed [facility] Pneumococcal 7 Conjugate, PCV7 (Prevnar7) Unknown Completed [facility] Pneumococcal 7 Conjugate, PCV7 (Prevnar7) Unknown Completed [facility] IPV Unknown Completed [facility] IPV Unknown Completed [facility] IPV Unknown Completed [facility] IPV Unknown Completed [facility] TDAP Unknown Completed [facility] Varicella (varivax)(chicken pox) Unknown Completed [facility] HPV Unknown Completed [facility] HPV Unknown Completed [facility] HPV Unknown Completed [facility] TDAP Unknown Completed [facility] Varicella (varivax)(chicken pox) Unknown Completed [facility] HPV Unknown Completed [facility] HPV Unknown Completed [facility] HPV Unknown Completed [facility] TDAP Unknown Completed [facility] Varicella (varivax)(chicken pox) Unknown Completed [facility] HPV Unknown Completed [facility] HPV Unknown Completed [facility] HPV Unknown Completed [facility] TDAP Unknown Completed [facility] Varicella (varivax)(chicken pox) Unknown Completed [facility] HPV Unknown Completed [facility] HPV Unknown Completed [facility] HPV Unknown Completed [facility] TDAP Unknown Completed [facility] Varicella (varivax)(chicken pox) Unknown Completed [facility] HPV Unknown Completed [facility] HPV Unknown Completed [facility] HPV Unknown Completed [facility] TDAP Unknown Completed [facility] Varicella (varivax)(chicken pox) Unknown Completed [facility] HPV Unknown Completed [facility] HPV Unknown Completed [facility] HPV Unknown Completed [facility] TDAP Unknown Completed [facility] Varicella (varivax)(chicken pox) Unknown Completed [facility] HPV Unknown Completed [facility] HPV Unknown Completed [facility] HPV Unknown Completed [facility] TDAP Unknown Completed [facility] Varicella (varivax)(chicken pox) Unknown Completed [facility] HPV Unknown Completed [facility] HPV Unknown Completed [facility] HPV Unknown Completed [facility] TDAP Unknown Completed [facility] Varicella (varivax)(chicken pox) Unknown Completed [facility] Varicella (varivax)(chicken pox) Unknown Completed [facility] DTP Unknown Completed [facility] DTP Unknown Completed [facility] DTP Unknown Completed [facility] DTP Unknown Completed [facility] DTP Unknown Completed [facility] Flu Trivalent Unknown Completed [facility] Flu Trivalent Unknown Completed [facility] HEPATITIS A Unknown Completed [facility] HEPATITIS A Unknown Completed [facility] Hep B, Adol or Pedi Dosage Unknown Completed [facility] Hep B, Adol or Pedi Dosage Unknown Completed [facility] Hep B, Adol or Pedi Dosage Unknown Completed [facility] Hib-HbOC Unknown Completed [facility] Hib-HbOC Unknown Completed [facility] Hib-HbOC Unknown Completed [facility] Hib-HbOC Unknown Completed [facility] Meningococcal Polysaccharide (groups A, C, Y and W-135) conjugate vaccine (MCV4P) Unknown Completed [facility] Meningococcal Polysaccharide (groups A, C, Y and W-135) conjugate vaccine (MCV4P) Unknown Completed [facility] Meningococcal B, OMV Unknown Completed [facility] Meningococcal B, OMV Unknown Completed [facility] MMR Unknown Completed [facility] MMR Unknown Completed [facility] Pneumococcal 7 Conjugate, PCV7 (Prevnar7) Unknown Completed [facility] Pneumococcal 7 Conjugate, PCV7 (Prevnar7) Unknown Completed [facility] IPV Unknown Completed [facility] IPV Unknown Completed [facility] IPV Unknown Completed [facility] IPV Unknown Completed [facility] TDAP Unknown Completed [facility] Varicella (varivax)(chicken pox) Unknown Completed [facility] HPV Unknown Completed [facility] HPV Unknown Completed [facility] HPV Unknown Completed [facility] TDAP Unknown Completed [facility] Varicella (varivax)(chicken pox) Unknown Completed [facility] Varicella (varivax)(chicken pox) Unknown Completed [facility] DTP Unknown Completed [facility] DTP Unknown Completed [facility] DTP Unknown Completed [facility] DTP Unknown Completed [facility] DTP Unknown Completed [facility] Flu Trivalent Unknown Completed [facility] Flu Trivalent Unknown Completed [facility] HEPATITIS A Unknown [facility] Hep B, Adol or Pedi Dosage Unknown Completed [facility] Hep B, Adol or Pedi Dosage Unknown Completed [facility] Hep B, Adol or Pedi Dosage Unknown Completed [facility] Hib-HbOC Unknown Completed [facility] Hib-HbOC Unknown Completed [facility] Hib-HbOC Unknown Completed [facility] Hib-HbOC Unknown Completed [facility] Meningococcal Polysaccharide (groups A, C, Y and W-135) conjugate vaccine (MCV4P) Unknown Completed [facility] Meningococcal Polysaccharide (groups A, C, Y and W-135) conjugate vaccine (MCV4P) Unknown Completed [facility] Vital Signs Vital Name Observation Time Observation Value Comments S ource BP Systolic 2023-09-28 00:00:00 119 mm[Hg] [facility] BMI (Body Mass Index) 2023-09-28 00:00:00 30.3 kg/m2 [facility] BP Diastolic 2023-09-28 00:00:00 82 mm[Hg] [facility] Weight 2023-09-28 00:00:00 187.8 [lb_av] [facility] Height 2023-09-28 00:00:00 66 [facility]in_i[facility] Sy[facility] blood pressure 2023-08-09 19:01:00 130 mm[Hg] [facility] Diastolic blood pressure 2023-08-09 19:01:00 87 mm[Hg] [facility] Heart rate 2023-08-09 19:01:00 83 /min [facility] Body temperature 2023-08-09 19:01:00 36.83 [place] [facility] Respiratory rate 2023-08-09 19:01:00 18 /min [facility] Body height 2023-08-09 19:01:00 170.2 cm [facility] Body weight 2023-08-09 19:01:00 84.993 kg [facility] BMI 2023-08-09 19:01:00 29.35 kg/m2 [facility] Systolic blood pressure 2023-07-13 19:48:00 136 mm[Hg] [facility] Diastolic blood pressure 2023-07-13 19:48:00 85 mm[Hg] [facility] Heart rate 2023-07-13 19:48:00 72 /min [facility] Body temperature 2023-07-13 19:48:00 36.67 [place] [facility] Respiratory rate 2023-07-13 19:48:00 18 /min [facility] Body height 2023-07-13 19:48:00 170.2 cm [facility] Body weight 2023-07-13 19:48:00 85.095 kg [facility] BMI 2023-07-13 19:48:00 29.38 kg/m2 [facility] Systolic blood pressure 2023-06-29 20:03:00 130 mm[Hg] [facility] Diastolic blood pressure 2023-06-29 20:03:00 80 mm[Hg] [facility] Heart rate 2023-06-29 19:53:00 82 /min [facility] Body temperature 2023-06-29 19:53:00 36.17 [place] [facility] Respiratory rate 2023-06-29 19:53:00 18 /min [facility] Body height 2023-06-29 19:53:00 170.2 cm [facility] Body weight 2023-06-29 19:53:00 86.229 kg [facility] BMI 2023-06-29 19:53:00 29.77 kg/m2 [facility] Systolic blood pressure 2020-07-18 19:53:00 125 mm[Hg] [facility] Diastolic blood pressure 2020-07-18 19:53:00 76 mm[Hg] [facility] Heart rate 2020-07-18 19:53:00 77 /min [facility] Body temperature 2020-07-18 19:53:00 36.94 [place] [facility] Respiratory rate 2020-07-18 19:53:00 16 /min [facility] Body height 2020-07-18 19:53:00 170.2 cm [facility] Body weight 2020-07-18 19:53:00 79.946 kg [facility] BMI 2020-07-18 19:53:00 27.60 kg/m2 [facility] Systolic blood pressure 2020-07-04 21:03:00 125 mm[Hg] [facility] Diastolic blood pressure 2020-07-04 21:03:00 79 mm[Hg] [facility] Heart rate 2020-07-04 21:03:00 89 /min [facility] Body temperature 2020-07-04 21:03:00 36.94 [place] [facility] Respiratory rate 2020-07-04 21:03:00 16 /min [facility] Body height 2020-07-04 21:03:00 170.2 cm [facility] Body weight 2020-07-04 21:03:00 80.457 kg [facility] BMI 2020-07-04 21:03:00 27.78 kg/m2 [facility] Systolic blood pressure 2020-06-06 16:13:00 123 mm[Hg] [facility] Diastolic blood pressure 2020-06-06 16:13:00 84 mm[Hg] [facility] Heart rate 2020-06-06 16:13:00 68 /min [facility] Body temperature 2020-06-06 16:13:00 36.72 [place] [facility] Respiratory rate 2020-06-06 16:13:00 16 /min [facility] Body height 2020-06-06 16:13:00 172.7 cm [facility] Body weight 2020-06-06 16:13:00 34.133 kg [facility] BMI 2020-06-06 16:13:00 11.44 kg/m2 [facility] Systolic blood pressure 2020-05-19 22:08:00 118 mm[Hg] [facility] Diastolic blood pressure 2020-05-19 22:08:00 78 mm[Hg] [facility] Body temperature 2020-05-19 22:08:00 36.89 [place] [facility] Respiratory rate 2020-05-19 22:08:00 16 /min [facility] Body height 2020-05-19 22:08:00 172.7 cm [facility] Body weight 2020-05-19 22:08:00 82.214 kg [facility] BMI 2020-05-19 22:08:00 27.56 kg/m2 [facility] Systolic blood pressure 2020-05-13 18:00:00 125 mm[Hg] [facility] Diastolic blood pressure 2020-05-13 18:00:00 88 mm[Hg] [facility] Heart rate 2020-05-13 18:00:00 76 /min [facility] Body temperature 2020-05-13 18:00:00 36.67 [place] [facility] Respiratory rate 2020-05-13 18:00:00 18 /min [facility] Oxygen saturation in Arterial blood by Pulse oximetry 2020-05-13 18:00:00 98 /min [facility] Body height 2020-05-11 18:58:00 170.2 cm [facility] Body weight 2020-05-11 18:58:00 88.451 kg [facility] BMI 2020-05-11 18:58:00 30.54 kg/m2 [facility] Systolic blood pressure 2020-05-07 21:54:00 138 mm[Hg] [facility] Diastolic blood pressure 2020-05-07 21:54:00 78 mm[Hg] [facility] Heart rate 2020-05-07 21:54:00 91 /min [facility] Body temperature 2020-05-07 21:54:00 36.67 [place] [facility] Respiratory rate 2020-05-07 21:54:00 16 /min [facility] Body height 2020-05-07 21:54:00 172.7 cm [facility] Body weight 2020-05-07 21:54:00 90.436 kg [facility] BMI 2020-05-07 21:54:00 30.31 kg/m2 [facility] Systolic blood pressure 2020-05-07 21:54:00 138 mm[Hg] [facility] Diastolic blood pressure 2020-05-07 21:54:00 78 mm[Hg] [facility] Heart rate 2020-05-07 21:54:00 91 /min [facility] Body temperature 2020-05-07 21:54:00 36.67 [place] [facility] Respiratory rate 2020-05-07 21:54:00 16 /min [facility] Body height 2020-05-07 21:54:00 172.7 cm [facility] Body weight 2020-05-07 21:54:00 90.436 kg [facility] BMI 2020-05-07 21:54:00 30.31 kg/m2 [facility] Systolic blood pressure 2020-04-30 19:23:00 129 mm[Hg] [facility] Diastolic blood pressure 2020-04-30 19:23:00 77 mm[Hg] [facility] Heart rate 2020-04-30 19:22:00 102 /min [facility] Body temperature 2020-04-30 19:22:00 37.06 [place] [facility] Respiratory rate 2020-04-30 19:22:00 16 /min [facility] Body height 2020-04-30 19:22:00 170.2 cm [facility] Body weight 2020-04-30 19:22:00 88.933 kg [facility] BMI 2020-04-30 19:22:00 30.71 kg/m2 [facility] Systolic blood pressure 2020-04-30 19:23:00 129 mm[Hg] [facility] Diastolic blood pressure 2020-04-30 19:23:00 77 mm[Hg] [facility] Heart rate 2020-04-30 19:22:00 102 /min [facility] Body temperature 2020-04-30 19:22:00 37.06 [place] [facility] Respiratory rate 2020-04-30 19:22:00 16 /min [facility] Body height 2020-04-30 19:22:00 170.2 cm [facility] Body weight 2020-04-30 19:22:00 88.933 kg [facility] BMI 2020-04-30 19:22:00 30.71 kg/m2 [facility] Systolic blood pressure 2020-04-22 21:37:00 134 mm[Hg] [facility] Diastolic blood pressure 2020-04-22 21:37:00 78 mm[Hg] [facility] Heart rate 2020-04-22 21:37:00 85 /min [facility] Body temperature 2020-04-22 21:37:00 37.06 [place] [facility] Respiratory rate 2020-04-22 21:37:00 16 /min [facility] Body height 2020-04-22 21:37:00 170.2 cm [facility] Body weight 2020-04-22 21:37:00 88.043 kg [facility] BMI 2020-04-22 21:37:00 30.40 kg/m2 [facility] Systolic blood pressure 2020-04-08 22:15:00 131 mm[Hg] [facility] Diastolic blood pressure 2020-04-08 22:15:00 78 mm[Hg] [facility] Heart rate 2020-04-08 22:12:00 96 /min [facility] Body temperature 2020-04-08 22:12:00 37.33 [place] [facility] Respiratory rate 2020-04-08 22:12:00 16 /min [facility] Body height 2020-04-08 22:12:00 170.2 cm [facility] Body weight 2020-04-08 22:12:00 86.835 kg [facility] BMI 2020-04-08 22:12:00 29.98 kg/m2 [facility] Systolic blood pressure 2020-03-27 21:18:00 120 mm[Hg] [facility] Diastolic blood pressure 2020-03-27 21:18:00 76 mm[Hg] [facility] Heart rate 2020-03-27 21:18:00 95 /min [facility] Body temperature 2020-03-27 21:18:00 37.17 [place] [facility] Respiratory rate 2020-03-27 21:18:00 16 /min [facility] Body height 2020-03-27 21:18:00 170.2 cm [facility] Body weight 2020-03-27 21:18:00 86.24 kg [facility] BMI 2020-03-27 21:18:00 29.78 kg/m2 [facility] Systolic blood pressure 2020-03-13 19:29:00 127 mm[Hg] [facility] Diastolic blood pressure 2020-03-13 19:29:00 80 mm[Hg] [facility] Heart rate 2020-03-13 19:29:00 94 /min [facility] Body temperature 2020-03-13 19:29:00 37.44 [place] [facility] Respiratory rate 2020-03-13 19:29:00 16 /min [facility] Body height 2020-03-13 19:29:00 170.2 cm [facility] Body weight 2020-03-13 19:29:00 84.851 kg [facility] BMI 2020-03-13 19:29:00 29.30 kg/m2 [facility] Systolic blood pressure 2020-02-28 18:28:00 136 mm[Hg] [facility] Diastolic blood pressure 2020-02-28 18:28:00 75 mm[Hg] [facility] Heart rate 2020-02-28 18:28:00 118 /min [facility] Body temperature 2020-02-28 18:28:00 37.11 [place] [facility] Respiratory rate 2020-02-28 18:28:00 16 /min [facility] Body height 2020-02-28 18:28:00 170.2 cm [facility] Body weight 2020-02-28 18:28:00 83.093 kg [facility] BMI 2020-02-28 18:28:00 28.69 kg/m2 [facility] Systolic blood pressure 2020-02-15 18:29:00 125 mm[Hg] [facility] Diastolic blood pressure 2020-02-15 18:29:00 71 mm[Hg] [facility] Heart rate 2020-02-15 18:29:00 95 /min [facility] Body temperature 2020-02-15 18:29:00 37.06 [place] [facility] Respiratory rate 2020-02-15 18:29:00 16 /min [facility] Body height 2020-02-15 18:29:00 170.2 cm [facility] Body weight 2020-02-15 18:29:00 82.6 kg [facility] BMI 2020-02-15 18:29:00 28.52 kg/m2 [facility] Systolic blood pressure 2020-01-14 21:04:00 133 mm[Hg] [facility] Diastolic blood pressure 2020-01-14 21:04:00 78 mm[Hg] [facility] Heart rate 2020-01-14 21:04:00 94 /min [facility] Body temperature 2020-01-14 21:04:00 37.06 [place] [facility] Respiratory rate 2020-01-14 21:04:00 16 /min [facility] Body height 2020-01-14 21:04:00 170.2 cm [facility] Body weight 2020-01-14 21:04:00 79.55 kg [facility] BMI 2020-01-14 21:04:00 27.47 kg/m2 [facility] BMI 2019-12-21 18:30:00 27.19 kg/m2 [facility] Systolic blood pressure 2019-12-21 18:30:00 137 mm[Hg] [facility] Diastolic blood pressure 2019-12-21 18:30:00 77 mm[Hg] [facility] Heart rate 2019-12-21 18:30:00 111 /min [facility] Body temperature 2019-12-21 18:30:00 36.83 [place] [facility] Respiratory rate 2019-12-21 18:30:00 16 /min [facility] Body height 2019-12-21 18:30:00 170.2 cm [facility] Body weight 2019-12-21 18:30:00 78.744 kg [facility] Systolic blood pressure 2019-11-23 20:27:00 123 mm[Hg] [facility] Diastolic blood pressure 2019-11-23 20:27:00 78 mm[Hg] [facility] Heart rate 2019-11-23 20:27:00 101 /min [facility] Body temperature 2019-11-23 20:27:00 37.17 [place] [facility] Respiratory rate 2019-11-23 20:27:00 16 /min [facility] Body height 2019-11-23 20:27:00 172.7 cm [facility] Body weight 2019-11-23 20:27:00 77.429 kg [facility] BMI 2019-11-23 20:27:00 25.95 kg/m2 [facility] Systolic blood pressure 2019-10-26 19:19:00 138 mm[Hg] [facility] Diastolic blood pressure 2019-10-26 19:19:00 83 mm[Hg] [place] [facility] Heart rate 2019-10-26 19:19:00 93 /min [facility] Body temperature 2019-10-26 19:19:00 37.61 [place] [facility] Respiratory rate 2019-10-26 19:19:00 16 /min [facility] Body height 2019-10-26 19:19:00 170.2 cm [facility] Body weight 2019-10-26 19:19:00 76.856 kg [facility] BMI 2019-10-26 19:19:00 26.54 kg/m2 [facility] Procedures Procedure Date / Time Performed Performing Clinician Source DISCLOSURE AND CONSENT, MEDICAL AND SURGICAL PROCEDURES 2023-07-13 06:01:00 Doctor Unassigned, [place] [facility] ASSIGNMENT OF BENEFITS 2023-06-29 18:47:56 Docto r Unassigned, [place] [facility] POCT TEST 2020-07-04 21:16:00 Skip Barnes [facility] CONSENT FOR CONTRACEPTION 2020-07-04 06:01:00 Do ctor Unassigned, [place] [facility] CBC WITH DIFF 2020-05-13 09:55:00 Guevara Stroud [facility] VENOUS CORD GAS 2020-05-12 14:24:00 Abhay Boogie in [facility] PROTEIN CREAT RATIO URINE RANDOM 2020-05-12 10:37:00 Maria Eugenia Hansen [facility] LACTATE DEHYDROGENASE 2020-05-12 10:28:00 Maria Eugenia Hansen [facility] CBC WITH DIFF 2020-05-11 23:53:00 Ana Maria Roberts [facility] SGOT (ASPARTATE AMINO TRANSFER) 2020-05-11 20:58:00 Maria Eugenia Hansen [facility] CREATININE 2020-05-11 20:58:00 Tyrone [facility] ALANINE AMINO TRANSFERASE(SGPT 2020-05-11 20:58:00 Tyrone [facility] URIC ACID 2020-05-11 20:58:00 Tyrone Maria Eugenia [facility] HEPATITIS B SURFACE ANTIGEN 2020-05-11 20:58:00 Abhay Boogie [facility] GALV ONLY - SYPHILIS IGG/IGM 2020-05-11 20:58:00 Abhay Boogie [facility] HB ABO GROUPING 2020-05-11 20:35:00 Abhay [place] in [facility] RHO (D) IMMUNE GLOBULIN 2020-05-11 20:35:00 Luis E Stroud [facility] COVID-19 (ID NOW RAPID TESTING) 2020-05-11 18:53:00 Keira Pacheco [facility] LAB ONLY COVID INTERPRETATION 2020-05-11 18:53:00 Keira Pacheco [facility] POCT URINALYSIS 2020-05-07 21:55:00 Tracy Barnes [facility] POCT URINALYSIS 2020-04-22 21:42:00 Tracy Barnes [facility] POCT URINALYSIS 2020-04-08 22:18:00 Tracy Barnes [facility] POCT URINALYSIS 2020-03-27 21:21:00 Tracy Barnes [facility] TDAP VACCINE, >11 YRS, IM 2020-03-13 19:38:14 Tracy Barnes [facility] POCT URINALYSIS 2020-03-13 19:31:00 Tracy Barnes [facility] POCT URINALYSIS 2020-02-28 18:33:00 Tracy Barnes [facility] POCT URINALYSIS 2020-02-15 00:00:00 Tracy Barnes [facility] POCT URINALYSIS 2020-01-14 21:05:00 Tracy Barnes [facility] POCT URINALYSIS 2019-12-21 00:00:00 Tracy Barnes [facility] POCT URINALYSIS 2019-11-23 00:00:00 Tracy Barnes [facility] POCT URINALYSIS W/O SPECIFIC GRAVITY 2019-10-26 19:13:00 Tracy Barnes [facility] POCT TEST 2019-10-26 19:12:00 Skip Barnes [facility] Encounters Start Date/Time End Date/Time Encounter Type Admission Type Attending [facility] Facility Care Department Encounter ID Source 2021-03-14 13:13:44 Outpatient [facility] [id number] [facility] 2023-09-28 00:00:00 2023-09-28 00:00:00 Jinny Alexander MD: [address] [place] [address] Dr [place], [place] [address], [place] [address] , Ph. [facility]* [id number] [facility] 2023-08-09 14:15:00 2023-08-09 14:45:23 Outpatient R JAYLA FELIPE [facility] [id number] [facility] 2023-08-09 14:15:00 2023-08-09 14:45:23 Office Visit Jayla Felipe [facility] MILITARY EDUCATION COORDINATOR [facility] 1..840.114 350.1.13.10 4.2.7.2.686 [id number] [facility] 2023-08-09 00:00:00 2023-08-09 00:00:00 Case Management Jayla Felipe [facility] MILITARY EDUCATION COORDINATOR [facility] 1..840.114 350.1.13.10 4.2.7.2.686 [id number] [facility] 2023-07-20 13:45:00 2023-07-20 13:45:00 Outpatient R TRACY BARNES [facility] [id number] [facility] 2023-07-13 13:45:00 2023-07-13 14:32:45 Outpatient R TRACY BARNES [facility] [id number] [facility] 2023-07-13 13:45:00 2023-07-13 14:15:00 Office Visit Tracy Barnes Duglas [facility] MILITARY EDUCATION COORDINATOR [facility] 1.114 350.1.13.10 4.2.7.2.686 [id number] [facility] 2023-07-13 00:00:00 2023-07-13 00:00:00 Orders Only Doctor Unassigned, [place] [facility] 1.114 350.1.13.10 4.2.7.2.686 [id number] [facility] 2023-06-29 13:30:00 2023-06-29 14:24:18 Outpatient R TRACY BARNES [facility] [id number] [facility] 2023-06-29 13:30:00 2023-06-29 14:24:18 Office Visit Tracy Barnes Duglas [facility] MILITARY EDUCATION COORDINATOR [facility] .114 350.1.13.10 4.2.7.2.686 [id number] [facility] 2023-06-29 00:00:00 2023-06-29 00:00:00 Orders Only Doctor Unassigned, [place] [facility] 1.114 350.1.13.10 4.2.7.2.686 [id number] [facility] 2020-08-05 00:00:00 2020-08-05 00:00:00 Patient Outreach Dhiraj Pacheco [facility] 1.2.840.114 350.1.13.10 4.2.7.2.686 [id number] [facility] 2020 00:00:00 2020 00:00:00 Telephone Tracy Barnes [facility] MILITARY EDUCATION COORDINATOR [facility] 1.2840.114 350.1.13.10 4.2.7.2.686 [id number] [facility] 2020-07-18 13:25:05 2020-07-18 14:12:18 Office Visit Tracy Barnes [facility] MILITARY EDUCATION COORDINATOR [facility] 1.2840.114 350.1.13.10 4.2.7.2.686 [id number] [facility] 2020-07-18 13:15:00 2020-07-18 13:15:00 Outpatient R TRACY ABRNES [facility] [id number] [facility] 2020-07-04 14:45:17 2020-07-04 16:08:46 Office Visit Tracy Barnes [facility] MILITARY EDUCATION COORDINATOR [facility] 1.284.114 350.1.13.10 4.2.7.2.686 [id number] [facility] 2020-07-04 14:30:00 2020-07-04 14:30:00 Outpatient R TRACY BARNES [facility] [id number] [facility] 2020-07-04 00:00:00 2020-07-04 00:00:00 Orders Only Doctor Unassigned, [place] [facility] 1.840.114 350.1.13.10 4.2.7.2.686 [id number] [facility] 2020-06-30 15:15:00 2020-06-30 15:15:00 Outpatient R TRACY BARNES [facility] [id number] [facility] 2020-06-06 09:49:43 2020-06-06 10:42:18 Routine Visit Tracy Barnes [facility] MILITARY EDUCATION COORDINATOR [facility] 1.2.840.114 350.1.13.10 4.2.7.2.686 [id number] [facility] 2020-06-06 09:45:00 2020-06-06 09:45:00 Outpatient R TRACY BARNES [facility] [id number] [facility] 2020-05-19 15:47:51 2020-05-19 16:26:38 [facility] 1..840.114 350.1.13.10 4.2.7.2.686 [id number] [facility] 2020-05-19 11:00:00 2020-05-19 11:00:00 Outpatient R [facility] [id number] [facility] 2020-05-14 15:15:00 2020-05-14 15:15:00 Outpatient R TRACY BARNES [facility] [id number] [facility] 2020-05-11 12:42:00 2020-05-13 12:30:00 Hospital Encounter Keira Pacheco [facility] 1.840.114 350.1.13.10 4.2.7.2.686 [id number] [facility] 2020-05-07 15:47:36 2020-05-07 16:07:58 Routine Visit Jonatan Bates [facility] MILITARY EDUCATION COORDINATOR [facility] 1..840.114 350.1.13.10 4.2.7.2.686 [id number] 2020-05-07 15:47:36 2020-05-07 16:07:58 Routine Visit Jonatan Bates [facility] MILITARY EDUCATION COORDINATOR [facility] 1.2.840.114 350.1.13.10 4.2.7.2.686 [id number] [facility] 2020-05-07 15:45:00 2020-05-07 15:45:00 Outpatient Jovita ROSANA BATESANGELINE [facility] [id number] [facility] 2020-04-30 12:50:30 2020-04-30 13:49:04 Routine Visit Tracy Barnes [facility] MILITARY EDUCATION COORDINATOR [facility] 1.2.840.114 350.1.13.10 4.2.7.2.686 [id number] 2020-04-30 12:50:30 2020-04-30 13:49:04 Routine Visit Tracy Barnes [facility] MILITARY EDUCATION COORDINATOR [facility] 1.2.840.114 350.1.13.10 4.2.7.2.686 [id number] [facility] 2020-04-30 13:00:00 2020-04-30 13:00:00 Outpatient R TRACY BARNES [facility] [id number] [facility] 2020-04-22 15:27:28 2020-04-22 16:08:10 Routine Visit Tracy Barnes [facility] MILITARY EDUCATION COORDINATOR [facility] 1.2.840.114 350.1.13.10 4.2.7.2.686 [id number] [facility] 2020-04-22 15:30:00 2020-04-22 15:30:00 Outpatient R TRACY BARNES [facility] [id number] [facility] 2020-04-09 14:00:00 2020-04-09 14:00:00 Outpatient R TRACY BARNES [facility] [id number] [facility] 2020-04-08 15:42:39 2020-04-08 16:24:32 Routine Visit Tracy Barnes [facility] MILITARY EDUCATION COORDINATOR [facility] 1.2.840.114 350.1.13.10 4.2.7.2.686 [id number] [facility] 2020-04-08 15:45:00 2020-04-08 15:45:00 Outpatient R TRACY BARNES [facility] [id number] [facility] 2020-03-27 14:56:11 2020-03-27 15:11:11 Routine Visit Tracy Barnes [facility] MILITARY EDUCATION COORDINATOR [facility] 1..840.114 350.1.13.10 4.2.7.2.686 [id number] [facility] 2020-03-27 15:00:00 2020-03-27 15:00:00 Outpatient R TRACY BARNES [facility] [id number] [facility] 2020-03-13 14:12:02 2020-03-13 15:05:17 Routine Visit Tracy Barnes [facility] MILITARY EDUCATION COORDINATOR [facility] 1..840.114 350.1.13.10 4.2.7.2.686 [id number] 107 [id number] [facility] 2020-03-13 14:00:00 2020-03-13 14:00:00 Outpatient R TRACY BARNES [facility] [id number] [facility] 2020-03-07 00:00:00 2020-03-07 00:00:00 Abstract Tracy Barnes [facility] MILITARY EDUCATION COORDINATOR [facility] 1..840.114 350.1.13.10 4.2.7.2.686 [id number] [facility] 2020-02-29 08:08:01 2020-02-29 09:58:54 [facility] MILITARY EDUCATION COORDINATOR [facility] 1.2.840.114 350.1.13.10 4.2.7.2.686 [id number] [facility] 2020-02-29 08:15:00 2020-02-29 08:15:00 Outpatient R [facility] [id number] [facility] 2020-02-28 14:20:07 2020-02-28 14:50:07 Mold Operator Visit Ultrasound, Tracy Connell Shannon M [facility] MILITARY EDUCATION COORDINATOR [facility] 1.2.840.114 350.1.13.10 4.2.7.2.686 [id number] [facility] 2020-02-28 13:07:00 2020-02-28 14:05:02 Routine Visit Tracy Barnes [facility] MILITARY EDUCATION COORDINATOR [facility] 1.2.840.114 350.1.13.10 4.2.7.2.686 [id number] [facility] 2020-02-28 13:15:00 2020-02-28 13:15:00 Outpatient R TRACY BARNES [facility] [id number] [facility] 2020-02-15 13:06:03 2020-02-15 13:45:56 Routine Visit Tracy Barnes [facility] MILITARY EDUCATION COORDINATOR [facility] 1.2.840.114 350.1.13.10 4.2.7.2.686 [id number] [facility] 2020-02-15 13:00:00 2020-02-15 13:00:00 Outpatient R TRACY BARNES [facility] [id number] [facility] 2020-01-18 13:00:00 2020-01-18 13:00:00 Outpatient R TRACY BARNES [facility] [id number] [facility] 2020-01-17 00:00:00 2020-01-17 00:00:00 Telephone Tracy Barnes [facility] MILITARY EDUCATION COORDINATOR [facility] 1.2.840.114 350.1.13.10 4.2.7.2.686 [id number] [facility] 2020-01-16 00:00:00 2020-01-16 00:00:00 Telephone Tracy Barnes [facility] MILITARY EDUCATION COORDINATOR [facility] 1.2.840.114 350.1.13.10 4.2.7.2.686 [id number] [facility] 2020-01-14 15:54:15 2020-01-14 16:25:55 Routine Visit Tracy Barnes Duglas [facility] MILITARY EDUCATION COORDINATOR [facility] 1.2.840.114 350.1.13.10 4.2.7.2.686 [id number] [facility] 2020-01-14 16:00:00 2020-01-14 16:00:00 Outpatient R KATHERINE BARNESOLA [facility] [id number] [facility] 2020-01-11 00:00:00 2020-01-11 00:00:00 Telephone Tracy Barnes [facility] MILITARY EDUCATION COORDINATOR [facility] 1.2.840.114 350.1.13.10 4.2.7.2.686 [id number] [facility] 2020-01-08 00:00:00 2020-01-08 00:00:00 Abstract Tracy Barnes [facility] MILITARY EDUCATION COORDINATOR [facility] 1.2.840.114 350.1.13.10 4.2.7.2.686 [id number] 107 [id number] [facility] 2020-01-03 13:53:31 2020-01-03 14:53:31 Mold Operator Visit Ultrasound, Jayden Reed [facility] MILITARY EDUCATION COORDINATOR [facility] 1.114 350.1.13.10 4.2.7.2.686 [id number] [facility] 2020-01-03 14:00:00 2020-01-03 14:00:00 Outpatient P [facility] [id number] [facility] 2019-12-24 00:00:00 2019-12-24 00:00:00 Patient Secure Msg Doctor Unassigned, [place] [facility] MILITARY EDUCATION COORDINATOR [facility] 1.114 350.1.13.10 4.2.7.2.686 [id number] [facility] 2019-12-21 13:22:06 2019-12-21 14:05:09 Routine Visit Tracy Barnes [facility] MILITARY EDUCATION COORDINATOR [facility] 1.114 350.1.13.10 4.2.7.2.686 [id number] 107 [id number] [facility] 2019-12-21 13:30:00 2019-12-21 13:30:00 Outpatient R TRACY BARNES [facility] [id number] [facility] 2019-11-23 15:17:29 2019-11-23 15:51:23 Routine Visit Tracy Barnes [facility] MILITARY EDUCATION COORDINATOR [facility] 1.114 350.1.13.10 4.2.7.2.686 [id number] [facility] 2019-11-23 15:30:00 2019-11-23 15:30:00 Outpatient R TRACY BARNES [facility] [id number] [facility] 2019-11-14 14:34:11 2019-11-14 14:49:11 Mold Operator Visit Lab, [facility] Keira Pacheco [facility] .114 350.1.13.10 4.2.7.2.686 [id number] [facility] 2019-11-14 13:18:19 2019-11-14 14:03:19 Mold Operator Visit 5, [facility] Us Room Keira Pacheco [facility] 1.2840.114 350.1.13.10 4.2.7.2.686 [id number] [facility] 2019-11-14 13:00:00 2019-11-14 13:00:00 Outpatient P [facility] [id number] [facility] 2019-11-14 00:00:00 2019-11-14 00:00:00 Case Management Rima Brothers [facility] 1.20.114 350.1.13.10 4.2.7.2.686 [id number] [facility] 2019-11-14 00:00:00 2019-11-14 00:00:00 Abstract Tracy Barnes [facility] MILITARY EDUCATION COORDINATOR [facility] 1.2.840.114 350.1.13.10 4.2.7.2.686 [id number] 107 [id number] [facility] 2019-10-26 14:10:05 2019-10-26 15:15:09 Initial Visit Tracy Barnes [facility] MILITARY EDUCATION COORDINATOR [facility] 1.2.840.114 350.1.13.10 4.2.7.2.686 [id number] [facility] 2019-10-26 14:00:00 2019-10-26 14:00:00 Outpatient R SEBASTIAN PAIGE [facility] [id number] [facility] Results Test Description Test Time Test Comments Results Result Co mments Source [facility] [id number] 21:16:00* Test Item Value Reference Range Interpretation Comme nts POCT PREG (test code = 1605) Negative On board controls acceptable with C Line (test code = 3574) Yes POCT PREG LOT # (test code = 3575) POCT PREG TEST DATE ( test code = 3576) [facility] [id number] 21:16:00* Test Item Value Reference Range Interpretation Comme nts POCT PREG (test code = 1605) Negative On board controls acceptable with C Line (test code = 3574) Yes POCT PREG LOT # (test code = 3575) POCT PREG TEST DATE ( test code = 3576) [facility] [id number] 21:16:00* Test Item Value Reference Range Interpretation Comme nts POCT PREG (test code = 1605) Negative On board controls acceptable with C Line (test code = 3574) Yes POCT PREG LOT # (test code = 3575) POCT PREG TEST DATE ( test code = 3576) [facility] with [id number] 10:16:00* Test Item Value Reference Range Interpretation [...] 32.3 g/dL 31.6-35.1 RDW-SD (test code = 36544-6) 43.1 fL 39-49.9 RDW-CV (test code = 788-0) 13.9 % 12-15.5 PLT (test code = 777-3) See_Comment [Automated messa ge] The system which generated this result transmitted reference range: 166 - 358 10*3/?L. The reference range was not used to interpret this result as normal/abnormal. MPV (test code = 79429-2) 10.6 fL 9.5-12.9 NRBC/100 WBC (test code = 3037348657) See_Comment [Automated Energen[employer] ssage] The system which generated this result transmitted reference range: 0.0 - 10.0 /100 WBCs. The reference range was not used to interpret this result as normal/abnormal. NRBC x10^3 (test code = 7566964016) <0.01 See_Comment [Automated messa ge] The system which generated this result transmitted reference range: 10*3/?L. The reference range was not used to interpret this result as normal/abnormal. GRAN MAT (NEUT) % (test code = 770-8) 66.7 % IMM GRAN % (test code = 0265752798) 1.00 % LYMPH % (test code = 736-9) 22.4 % MONO % (test code = 5905-5) 7.6 % EOS % (test code = 713-8) 2.0 % BASO % (test code = 706-2) 0.3 % GRAN MAT x10^3(ANC) (test code = 5409160622) 5.95 10*3/uL 1.88-7.09 IMM GRAN x10^3 (test code = 9415938075) 0.09 10*3/uL 0-0.06 H LYMPH x10^3 (test code = 731-0) 2.00 10*3/uL 1.32-3.29 MONO x10^3 (test code = 742-7) 0.68 10*3/uL 0.33-0.92 EOS x10^3 (test code = 711-2) 0.18 10*3/uL 0.03-0.39 BASO x10^3 (test code = 704-7) 0.03 10*3/uL 0.01-0.07 Lab Interpretation (test code = 71200-5) [facility]normal [facility] COVID [id number] 22:13:00COVID DMT InterpretationInterpretation/Recommendations: Molecular NAAT Tests for Active Infection with the SARS-CoV-2 Virus: This result indicates that the patient has been infected with the SARS-CoV-2 virus that causes COVID-19 illness. The patient should be considered infectious and able to transmit the virus within the first 10 days after symptom onset in ppgu-lh-iqpskmlc illness and within the first 20 days [...] COVID-19 testing the patient has had at [facility], including molecular NAAT testing (more commonly known as PCR testing and Rapid ID Now testing) and antibody testing. It does not take into account any testing that a patient has had outside of the [facility] medical record. [facility] LABORATORY SERVICESCOVID Results SARS-CoV-2 Rapid ID NOW (no units) ? ? Date ? Value ? 05/11/2020 ? Positive (A) ? CoV-2 IgG (no units) ? ? Date ? Value ? 04/30/2020 ? Negative ? ? ? [facility]ORATORY SERVICESUnThe [facility]GALV ONLY - SYPHILIS [id number] 16:27:00* Test Item Value Reference Range Interpretation Comme nts Syphilis IgG/IgM (test code = 23189-0) Non-reactive Non-reactive PAULO (test code = PAULO) Non-reactive - No serologic evidence of T. pallidum infection. Cannot exclude incubating or early syphilis. Submit a second specimen in 2-4 weeks if syphilis is clinically suspected. Equivocal - Further testing to follow. Reactive - Further testing to follow. Lab Interpretation (test code = 39129-9) Normal [facility] (D) IMMUNE [id number] 16:24:32* Test Item Value Reference Range Interpretation Comme nts RHIG CANDIDATE? (test code = 5055) No- see comment Patient is not a candidate for RhIg- Patient is Rh Positive.Performed at [facility] Laboratory Services - [facility] Blood [address] [place] [address]Nwuj Free: [phone] No. [id number] [facility] HospitalVENOUS CORD [id number] 14:42:00* Test Item Value Reference Range Interpretation Comme nts VENOUS BASE EXCESS, CORD (test code = 3970311345) mEq/L VENOUS PH, CORD (test code = 1222761462) 7.25-7.45 VENOUS PC02, CORD (test code = 8517743079) See_Comment [Automated messa ge] The system which generated this result transmitted reference range: 27 - 49 mmHg. The reference range was not used to interpret this result as normal/abnormal. VENOUS PO2, CORD (test code = 4393852976) See_Comment [Automated me ssage] The system which generated this result transmitted reference range: 17 - 41 mmHg. The reference range was not used to interpret this result as normal/abnormal. VENOUS BICARBONATE, CORD (test code = 6035462904) See_Comment [Automated messa ge] The system which generated this result transmitted reference range: 12 - 29 mEq/L. The reference range was not used to interpret this result as normal/abnormal. [facility] CORD [id number] 14:41:00* Test Item Value Reference Range Interpretation Comme nts BASE EXCESS, CORD (test code = 1766026229) mEq/L AC PH, CORD (BEAKER) (test code = 8819883975) 7.18-7.38 PC02, CORD (test code = 7696007039) See_Comment [Automated messa ge] The system which generated this result transmitted reference range: 32 - 66 mmHg. The reference range was not used to interpret this result as normal/abnormal. PO2, CORD (test code = 1019613370) See_Comment [Automated messa ge] The system which generated this result transmitted reference range: 10 - 30 mmHg. The reference range was not used to interpret this result as normal/abnormal. BICARBONATE, CORD (test code = 1560103464) See_Comment [Automated messa ge] The system which generated this result transmitted reference range: 17 - 27 mEq/L. The reference range was not used to interpret this result as normal/abnormal. [facility] HospitalLACTATE [id number] 11:33:00* Test Item Value Reference Range Interpretation Comme nts LDH (test code = 6331736828) 552 U/L 300-600 Lab Interpretation (test cod e = 35960-7) Normal [facility] HospitalPROTEIN CREAT RATIO URINE [id number] 11:32:00* Test Item Value Reference Range Interpretation Comme nts T. PROT U (test code = 2888-6) 16 mg/dL CREAT U (test code = 1414950159) 195.4 mg/dL Protein/Creatinine Ratio Uri ne (test code = 7612267269) 0.0-2.0 [facility] HospitalALANINE AMINO TRANSFERASE([id number] 10:54:00* Test Item Value Reference Range Interpretation Comme nts ALTv (test code = 1742-6) 24 U/L 5-35 Lab Interpretation (test cod e = 87900-7) Normal [facility] Hospital[facility]ATININE2020-12-28 10:54:00* Test Item Value Reference Range Interpretation Comme nts CREATININE (test code = 0678204588) 0.48 mg/dL 0.5-1.04 L eGFR Calculation (Non-) (test code = 3183774779) mL/min/1.73m2 eGFR Calculation () (test code = 0309021905) mL/min/1.73m2 PAULO (test code = PAULO) Association [...] imaging tests). Lab Interpretation (test code = 74561-2) Abnormal [facility] HospitalSGOT (ASPARTATE AMINO TRANSFER)2020-05-12 10:54:00* Test Item Value Reference Range Interpretation Comme nts AST(SGOT) (test code = 3926585571) 29 U/L 13-40 Lab Interpretation (test cod e = 01430-5) Normal [facility] HospitalURIC [id number] 10:54:00* Test Item Value Reference Range Interpretation Comme nts URIC ACID (test code = 6728067970) 4.6 mg/dL 2.9-6 Lab Interpretation (test cod e = 50759-1) Normal [facility] WITH [id number] 00:11:00* Test Item Value Reference Range Interpretation [...] 32.0 g/dL 31.6-35.1 RDW-SD (test code = 57749-5) 42.4 fL 39-49.9 RDW-CV (test code = 788-0) 13.6 % 12-15.5 PLT (test code = 777-3) See_Comment [Automated messa ge] The system which generated this result transmitted reference range: 166 - 358 10*3/?L. The reference range was not used to interpret this result as normal/abnormal. MPV (test code = 61492-1) 11.3 fL 9.5-12.9 NRBC/100 WBC (test code = 9652370072) See_Comment [Automated Energen[employer] ssage] The system which generated this result transmitted reference range: 0.0 - 10.0 /100 WBCs. The reference range was not used to interpret this result as normal/abnormal. NRBC x10^3 (test code = 8417808241) <0.01 See_Comment [Automated messa ge] The system which generated this result transmitted reference range: 10*3/?L. The reference range was not used to interpret this result as normal/abnormal. GRAN MAT (NEUT) % (test code = 770-8) 68.5 % IMM GRAN % (test code = 2512132724) 0.90 % LYMPH % (test code = 736-9) 23.2 % MONO % (test code = 5905-5) 5.6 % EOS % (test code = 713-8) 1.5 % BASO % (test code = 706-2) 0.3 % GRAN MAT x10^3(ANC) (test code = 1427705805) 4.56 10*3/uL 1.88-7.09 IMM GRAN x10^3 (test code = 8749901819) 0.06 10*3/uL 0-0.06 LYMPH x10^3 (test code = 731-0) 1.54 10*3/uL 1.32-3.29 MONO x10^3 (test code = 742-7) 0.37 10*3/uL 0.33-0.92 EOS x10^3 (test code = 711-2) 0.10 10*3/uL 0.03-0.39 BASO x10^3 (test code = 704-7) <0.03 0.01-0.07 Lab Interpretation (test code = 45584-2) Abnormal [facility] HospitalHepatitis B Surface [id number] 22:15:00 * Test Item Value Reference Range Interpretation Comme nts HBsAg Semi-Quantitative (mary t code = 5195-3) Negative Negative [facility] HospitalType and Screen - ONCE [id number] 21:49:19 * Test Item Value Reference Range Interpretation Comme nts ABO & RH (test code = 20) O POSITIVE Performed at [facility] Laboratory Services - [facility] Blood [address] [address]Xbaj Free: [phone] No. [id number] IAT (test code = 1185) Negative Performed at [facility] Laboratory Services - [facility] Blood [address] [address]Dmcy Free: [phone] No. [id number] [facility] HospitalCOVID-19 (ID NOW RAPID TESTING)2020-05-11 19:30:00* Test Item Value Reference Range Interpretation Comme nts SARS-CoV-2 Rapid ID NOW (test code = 02062-6) Positive Not Detected A PAULO (test code = PAULO) ID NOW COVID-19 As say is an isothermal nucleic acid amplification test intended for the qualitative detection of nucleic acid from SARS-CoV-2 viral RNA in nasopharyngeal (CHURCH WARDEN) specimens. It is used under Emergency Use [...] clinically indicated. Lab Interpretation (test code = 39827-4) Abnormal [facility] URINALYSIS W SPECIFIC [id number] 21:55:00* Test Item Value Reference Range Interpretation [...] POCT U APPEAR (test code = 3267) [facility] URINALYSIS W SPECIFIC [id number] 21:42:00* Test Item Value Reference Range Interpretation [...] POCT U APPEAR (test code = 3267) [facility] URINALYSIS W SPECIFIC [id number] 22:18:00* Test Item Value Reference Range Interpretation [...] POCT U APPEAR (test code = 3267) [facility] URINALYSIS W SPECIFIC [id number] 21:21:00* Test Item Value Reference Range Interpretation [...] POCT U APPEAR (test code = 3267) [facility] URINALYSIS W SPECIFIC [id number] 21:21:00* Test Item Value Reference Range Interpretation [...] POCT U APPEAR (test code = 3267) [facility] URINALYSIS W SPECIFIC [id number] 19:31:00* Test Item Value Reference Range Interpretation [...] POCT U APPEAR (test code = 3267) [facility] URINALYSIS W SPECIFIC [id number] 18:33:00* Test Item Value Reference Range Interpretation [...] POCT U APPEAR (test code = 3267) [facility] URINALYSIS W SPECIFIC [id number] 18:31:00* Test Item Value Reference Range Interpretation [...] POCT U APPEAR (test code = 3267) [facility] URINALYSIS W SPECIFIC [id number] 18:31:00* Test Item Value Reference Range Interpretation [...] POCT U APPEAR (test code = 3267) [facility] URINALYSIS W SPECIFIC [id number] 18:31:00* Test Item Value Reference Range Interpretation [...] POCT U APPEAR (test code = 3267) [facility] URINALYSIS W SPECIFIC [id number] 18:31:00* Test Item Value Reference Range Interpretation [...] POCT U APPEAR (test code = 3267) [facility] URINALYSIS W SPECIFIC [id number] 21:05:00* Test Item Value Reference Range Interpretation [...] POCT U APPEAR (test code = 3267) [facility] URINALYSIS W SPECIFIC [id number] 21:05:00* Test Item Value Reference Range Interpretation [...] POCT U APPEAR (test code = 3267) [facility] URINALYSIS W SPECIFIC [id number] 18:32:00* Test Item Value Reference Range Interpretation [...] POCT U APPEAR (test code = 3267) [facility] URINALYSIS W SPECIFIC [id number] 20:29:00* Test Item Value Reference Range Interpretation [...] POCT U APPEAR (test code = 3267) [facility] URINALYSIS W/O SPECIFIC [id number] 19:13:00* Test Item Value Reference Range Interpretation [...] = 3257) Neg Negative - Negati ve [facility] URINALYSIS W/O SPECIFIC [id number] 19:13:00* Test Item Value Reference Range Interpretation [...] = 3257) Neg Negative - Negati ve [facility] URINALYSIS W/O SPECIFIC [id number] 19:13:00* Test Item Value Reference Range Interpretation [...] = 3257) Neg Negative - Negati ve [facility] [facility] URINALYSIS W/O SPECIFIC [id number] 19:13:00* Test Item Value Reference Range Interpretation [...] = 3257) Neg Negative - Negati ve [facility] [id number] 19:12:00* Test Item Value Reference Range Interpretation Comme nts POCT PREG (test code = 1605) Positive On board controls acceptable with C Line (test code = 3574) Yes POCT PREG LOT # (test code = 3575) POCT PREG TEST DATE ( test code = 3576) [facility] [id number] 19:12:00* Test Item Value Reference Range Interpretation Comme nts POCT PREG (test code = 1605) Positive On board controls acceptable with C Line (test code = 3574) Yes POCT PREG LOT # (test code = 3575) POCT PREG TEST DATE ( test code = 3576) [id number]:12:00* Test Item Value Reference Range Interpretation Comme nts POCT PREG (test code = 1605) Positive On board controls acceptable with C Line (test code = 3574) Yes POCT PREG LOT # (test code = 3575) POCT PREG TEST DATE ( test code = 3576) [id number] 19:12:00* Test Item Value Reference Range Interpretation Comme nts POCT PREG (test code = 1605) Positive On board controls acceptable with C Line (test code = 3574) Yes POCT PREG LOT # (test code = 3575) POCT PREG TEST DATE ( test code = 3576) [facility]"
[2023-10-10] MEDS ORDERED: NA CHLORIDE 0.9% 1,000 ML ONE (13:08)
[2023-10-10 13:17] LABS: Absolute Eosinophils 0.2 K/uL (0-0.5); Absolute Lymphocytes (CBC) 2.7 K/uL (0.7-4.9); Absolute Monocytes 0.5 K/uL (0.1-1.3); Absolute Neutrophil 4.4 K/uL (1.8-8.0); Basophils % 0.3 % (0-1.3); Eosinophils % 2.8 % (0-4.4); Hematocrit 36.5 % (36.0-45.0); Lymphocytes % 34.5 % (15.3-44.8); MCH 29.3 pg (27.0-35.0); MCV 88.8 fL (80-100); Monocytes % 6.9 % (3.3-12.3); Neutrophils % 55.5 % (41.7-73.7); Platelets 327 thou/uL (152-406); RBC Red Blood Cell Count 4.11 M/uL (3.86-4.86); Red Cell Distribution Width 13.2 % (12.1-15.2)
[2023-10-10 13:33] LABS: Anion Gap 7.8 mEq/L (5.0-15.0); Potassium 3.8 mEq/L (3.5-5.1)
[2023-10-10 13:35] LABS: Specific Gravity 1.015 (1.005-1.030); Sqamous Epithelial None Seen /HPF (None Seen); Urine Bacteria <20 /HPF (<20); Urine Bilirubin NEGATIVE (Negative); Urine Blood 3+ (OVER) (Negative); Urine Clarity Extremely Turbid (Clear); Urine Color Red (Yellow); Urine Culture Reflex Order REFLEXED; Urine Glucose NEGATIVE (Negative); Urine Ketones NEGATIVE (Negative); Urine Microscopic Reflex YN ORDER UMIC; Urine Nitrite NEGATIVE (Negative); Urine Protein 2+ (Negative); Urine RBC >50 /HPF (None Seen); Urine Urobilinogen Normal (Normal); Urine WBC >50 /HPF (<5); Urine pH 6.5 (5.0-7.0)
[2023-10-10 13:36] LABS: Specific Gravity 1.015 (1.005-1.030)
--- NOTE | 2023-10-10 14:50 | RAD REPORT ---
EXAM DESCRIPTION: US - Transvaginal Study Probe - 10/10/2023 2:34 pm CLINICAL HISTORY: Pain;Vaginal bleeding COMPARISON: Transvaginal Study Probe dated 09/11/2023; Abdomen Pelvis W Contrast dated 09/11/2023 FINDINGS: The uterus is normal in size, shape and echotexture. The uterus measures 7.7 cm The endometrial stripe measures 10 mm, within normal limits for age The right ovary measures 4.1 x 2.5 x 2.6 cm with volume of 13.6 cc. The left ovary measures 2.6 x 2 x 2.3 cm with volume of 6.3 cc. Again noted are bilateral fat containing ovarian masses. Both ovaries demonstrate vascular flow. Normal Doppler blood flow was demonstrated to both ovaries. Trace free fluid. IMPRESSION: 1. Bilateral ovarian blood flow. 2. Fat containing bilateral ovarian lesions consistent with dermoids without significant interval shawn nge. 3. Small volume of nonspecific pelvic free fluid.
[2023-10-10] MEDS ORDERED: CEFTRIAXONE 1000 MG/VIAL ONE (14:56)
--- NOTE | 2023-10-10 15:55 | EDPHYS ---
Physician Documentation [facility] Name: Marquita Jauregui Age: 23 yrs Sex: Female : 2000 Arrival Date: 10/10/2023 Time: 12:22 Bed 13 Private MD: ED Physician Deepak Vincent HPI: 10/09 15:41 This 23 yrs old Female presents to ER via Ambulatory with complaints of shawn Vaginal Bleeding - Post Sx. 15:41 The patient presents with flank pain, bilaterally, pelvic pain, the pain is described shawn as moderate, crampy, urinary symptoms, frequency, urgency, vaginal bleeding that is light, moderate. Onset: The symptoms/episode began/occurred 2 day(s) ago. Modifying factors: The symptoms are alleviated by remaining still, the symptoms are aggravated by movement, pressure. Associated signs and symptoms: Pertinent positives: cramping, nausea, urinary frequency, vaginal bleeding. Severity of symptoms: At their worst the symptoms were mild, moderate, in the emergency department the symptoms are unchanged. The patient is not sexually active. The patient has experienced similar episodes in the past, a few times. 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 - Infectious Disease History:: Denies. - Social history:: Smoking status: Patient denies any tobacco usage or history of. - Family history:: not pertinent. ROS: 15:41 Constitutional: Negative for fever, chills, and weight loss, Eyes: Negative for injury, shawn pain, redness, and discharge, ENT: Negative for injury, pain, and discharge, Neck: Negative for injury, pain, and swelling, Cardiovascular: Negative for chest pain, palpitations, and edema, Respiratory: Negative for shortness of breath, cough, wheezing, and pleuritic chest pain, Back: Negative for injury and pain, MS/Extremity: Negative for injury and deformity, Skin: Negative for injury, rash, and discoloration, Neuro: Negative for headache, weakness, numbness, tingling, and seizure, Psych: Negative for depression, anxiety, suicide ideation, homicidal ideation, and hallucinations, Allergy/Immunology: Negative for hives, rash, and allergies, Endocrine: Negative for neck swelling, polydipsia, polyuria, polyphagia, and marked weight changes, Hematologic/Lymphatic: Negative for swollen nodes, abnormal bleeding, and unusual bruising, 15:41 Abdomen/GI: Positive for abdominal pain, nausea, of the right lower quadrant and left lower quadrant, 15:41 : Positive for urinary symptoms, urinary frequency, hematuria, burning with urination, Exam: 15:41 Constitutional: This is a well developed, well nourished patient who is awake, alert, shawn and in no acute distress. Head/Face: Normocephalic, atraumatic. Eyes: Pupils equal round and reactive to light, extra-ocular motions intact. Lids and lashes normal. Conjunctiva and sclera are non-icteric and not injected. Cornea within normal limits. Periorbital areas with no swelling, redness, or edema. ENT: Nares patent. No nasal discharge, no septal abnormalities noted. Tympanic membranes are normal and external auditory canals are clear. Oropharynx with no redness, swelling, or masses, exudates, or evidence of obstruction, uvula midline. Mucous membranes moist. Neck: Trachea midline, no thyromegaly or masses palpated, and no cervical lymphadenopathy. Supple, full range of motion without nuchal rigidity, or vertebral point tenderness. No Meningismus. Chest/axilla: Normal chest wall appearance and motion. Nontender with no deformity. No lesions are appreciated. Cardiovascular: Regular rate and rhythm with a normal S1 and S2. No gallops, murmurs, or rubs. Normal PMI, no JVD. No pulse deficits. Respiratory: Lungs have equal breath sounds bilaterally, clear to auscultation and percussion. No rales, rhonchi or wheezes noted. No increased work of breathing, no retractions or nasal flaring. Back: No spinal tenderness. No costovertebral tenderness. Full range of motion. Skin: Warm, dry with normal turgor. Normal color with no rashes, no lesions, and no evidence of cellulitis. MS/ Extremity: Pulses equal, no cyanosis. Neurovascular intact. Full, normal range of motion. Neuro: Awake and alert, GCS 15, oriented to person, place, time, and situation. Cranial nerves II-XII grossly intact. Motor strength 5/5 in all extremities. Sensory grossly intact. Cerebellar exam normal. Normal gait. Psych: Awake, alert, with orientation to person, place and time. Behavior, mood, and affect are within normal limits. 15:41 Abdomen/GI: Inspection: distension, is not seen, gravid appearance, ia not appreciated, Bowel sounds: normal, in all quadrants, Palpation: mild abdominal tenderness, in the suprapubic area, right lower quadrant and left lower quadrant, Liver: no appreciated palpable abnormalities, Hernia: not appreciated, Vital Signs: 12:40 BP 143 / 97; Pulse 101; Resp 18; Temp 97.9; Pulse Ox 96% on R/A; Weight 84.82 kg; hb Height 5 ft. 6 in. ; 13:30 BP 120 / 77; Pulse 85; Resp 18; Pulse Ox 100% ; cp4 14:30 BP 122 / 81; Pulse 83; Resp 18; Pulse Ox 100% ; cp4 15:30 BP 124 / 81; Pulse 83; Resp 18; Pulse Ox 100% ; cp4 12:40 Body Mass Index 30.18 (84.82 kg, 167.64 cm) hb MDM: 12:39 Patient medically screened. [facility] 15:50 Differential diagnosis: dysmenorrhea, kidney stone, menometrorrhagia, menorrhea, shawn nonspecific abdominal pain, urinary tract infection. Data reviewed: vital signs, nurses notes, lab test result(s), radiologic studies, ultrasound. Consideration of Admission/Observation Escalation of care including admission/observation considered. I considered the following discharge prescriptions or medication management in the emergency department Medications were administered in the Emergency Department. See MAR. Independent interpretation of the following test(s) in the Emergency Department Rhythm Strip Interpretation. Test considered but Not performed: EKG: no ekg. CT: no ct ab/pel. Historians other than the Patient: Parent: mom well informed. Care significantly affected by the following chronic conditions: Obesity. Counseling: I had a detailed discussion with the patient and/or guardian regarding the historical points, exam findings, and any diagnostic results supporting the discharge/admit diagnosis, lab results, radiology results, the need for outpatient follow up, for definitive care, an OB/Gyne specialist. 10/09 12:41 Order name: Abo/rh Typing; Complete Time: 14:50 [facility] 10/09 12:41 Order name: Basic Metabolic Panel; Complete Time: 14:50 [facility] 10/09 12:41 Order name: CBC with Diff; Complete Time: 14:50 [facility] 10/09 12:41 Order name: Test, Urine; Complete Time: 14:50 [facility] 10/09 12:41 Order name: Urinalysis w/ reflexes; Complete Time: 14:50 [facility] 10/09 13:38 Order name: Urine Culture EDCT 10/09 12:41 Order name: US Transvaginal Study (Probe); Complete Time: 14:50 [facility] 10/09 12:41 Order name: IV Saline Lock; Complete Time: 13:10 [facility] 10/09 12:41 Order name: Labs collected and sent; Complete Time: 13:10 [facility] 10/09 12:41 Order name: NPO; Complete Time: 12:44 [facility] Administered Medications: 13:10 Drug: NS 0.9% IV 1000 ml IV at 1 bolus Per protocol; 1000 mL bolus Route: IV; Rate: 1 cp4 bolus; Site: right antecubital; 15:11 Follow up: Response: No adverse reaction; IV Status: Completed infusion cp4 15:00 Drug: Rocephin IV 1 grams IV at per protocol once; Given slow IV push per pharmacy cp4 instructions Route: IV; Rate: per protocol; Site: right antecubital; 15:11 Follow up: Response: No adverse reaction; IV Status: Completed infusion cp4 16:18 Drug: Ciprofloxacin PO 500 mg PO once Route: PO; cp4 16:18 Follow up: Response: No adverse reaction cp4 Disposition Summary: 10/10/23 15:54 Discharge Ordered Notes: Location: Home shawn Problem: new shawn Symptoms: have improved shawn Condition: Stable shawn Diagnosis - Other specified abnormal uterine and vaginal bleeding - sp DERMOID LAP SURGERY shawn - Dysuria shawn - Other and unspecified ovarian cysts - BILATERAL DERMOID CYST shawn Followup: shawn - With: Private Physician - When: 1 - 2 days - Reason: Recheck today's complaints, Continuance of care, Re-evaluation by your physician Followup: shawn - With: Jinny Alexander MD - When: 1 - 2 days - Reason: Recheck today's complaints, Re-evaluation by your physician Discharge Instructions: - Discharge Summary Sheet shawn - Abdominal Pain, Adult shawn - Dysuria shawn - Menorrhagia shawn - Ovarian Cyst shawn - Abdominal Pain, Adult, Xwag-ak-Oned shawn - Ovarian Cyst, [id number] shawn - Laparoscopic Lysis of Abdominal Adhesions, Care After shawn - Ovarian Tumors shawn Forms: - Medication Reconciliation Form shawn - Antibiotic Education shawn - Prescription Opioid Use shawn - Patient Portal Instructions shawn - Leadership Thank You Letter [facility] Prescriptions: - ondansetron 4 mg Oral Tablet,disintegrating - take 1 tablet ORAL route every 8 to 12 hours as needed for nausea and vomiting; [facility] 20 tablet; Refills: 0, Product Selection Permitted - Ibuprofen 600 mg Oral Tablet - take 1 tablet ORAL route every 6 hours As needed take with food; 30 tablet; [facility] Refills: 0, Product Selection Permitted - Cipro 500 mg Oral Tablet - take 1 tablet ORAL route every 12 hours for 7 days; 14 tablet; Refills: 0, [facility] Product Selection Permitted Signatures: Dispatcher [employer] Deepak Nath MD MD cha Baxter, Heather, RN RN Michelle Echavarria RN RN [facility] Fanny Yoo 4
--- NOTE | 2023-10-10 15:55 | ER ---
Nurse's Notes [facility] Name: Marquita Jauregui Age: 23 yrs Sex: Female : 2000 Arrival Date: 10/10/2023 Time: 12:22 Bed 13 Private MD: Diagnosis: Other specified abnormal uterine and vaginal bleeding-sp DERMOID LAP SURGERY;Dysuria;Other and unspecified ovarian cysts-BILATERAL DERMOID CYST Presentation: 10/09 12:40 Chief complaint: Patient states: Had ovarian cyst removed on and Tuesday hb developed vaginal bleeding. pt states that the bleeding is dark red, unknown clots. PT states that she is going through about 3 pads per day. Coronavirus screen: Client denies travel out of the [place] in the last 14 days. At this time, the client does not indicate any symptoms associated with coronavirus-19. Ebola Screen: Patient denies travel to an Ebola-affected area in the 21 days before illness onset. No symptoms or risks identified at this time. Initial Sepsis Screen: Does the patient meet any 2 criteria? HR > 90 bpm. Does the patient have a suspected source of infection? No. Patient's initial sepsis screen is negative. Risk Assessment: Do you want to hurt yourself or someone else? Patient reports no desire to harm self or others. Onset of symptoms was October 10, 2023. 12:40 Method Of Arrival: Ambulatory 12:40 Acuity: COLUM[place] 3 hb Triage Assessment: 12:41 General: Appears in no apparent distress. comfortable, Behavior is calm, cooperative. hb Neuro: No deficits noted. Level of Consciousness is awake, alert, obeys commands, Oriented to person, place, time, situation, Appropriate for age. Respiratory: No deficits noted. Airway is patent Respiratory effort is even, unlabored, Respiratory pattern is regular, symmetrical. CONTENT MANAGER: 14:30 unknown cp4 15:41 0, Full Term 0, Premature 0, 0, Living 0, unknown shawn Historical: - Allergies: 12:39 No Known Allergies; ll1 - PSHx: 12:39 Fibroma removed from ovary; ll1 - Immunization history:: Adult Immunizations up to date. - Infectious Disease History:: Denies. - Social history:: Smoking status: Patient denies any tobacco usage or history of. - Family history:: not pertinent. Screenin:10 [facility] ED Fall Risk Assessment (Adult) History of falling in the last 3 months, cp4 including since admission No falls in past 3 months (0 pts) Confusion or Disorientation No (0 pts) Intoxicated or Sedated No (0 pts) Impaired Gait No (0 pts) Mobility Assist Device Used No (0 pt) Altered Elimination No (0 pt) Score/Fall Risk Level 0 - 2 = Low Risk Oriented to surroundings, Maintained a safe environment, Assessed \T\ reinforced patient's understanding of fall precautions, Hourly rounding (assess needs \T\ fall precautionary measures) done. Abuse screen: Denies threats or abuse. Nutritional screening: No deficits noted. Tuberculosis screening: No symptoms or risk factors identified. Assessment: 13:10 General: Appears uncomfortable, Behavior is calm, cooperative, appropriate for age. cp4 Pain: Denies pain. : Reports vaginal bleeding that is bright red, with clots, moderate flow, since Tuesday. Vital Signs: 12:40 BP 143 / 97; Pulse 101; Resp 18; Temp 97.9; Pulse Ox 96% on R/A; Weight 84.82 kg; hb Height 5 ft. 6 in. ; 13:30 BP 120 / 77; Pulse 85; Resp 18; Pulse Ox 100% ; cp4 14:30 BP 122 / 81; Pulse 83; Resp 18; Pulse Ox 100% ; cp4 15:30 BP 124 / 81; Pulse 83; Resp 18; Pulse Ox 100% ; cp4 12:40 Body Mass Index 30.18 (84.82 kg, 167.64 cm) hb ED Course: 12:24 Patient arrived in ED. ra3 12:39 Deepak Vincent MD is Attending Physician. shawn 12:39 Arm band placed on Patient placed in an exam room, on a stretcher. ll1 12:41 Triage completed. hb 12:42 Fanny Yoo is Primary Nurse. cp4 13:10 Bed in low position. Call light in reach. Side rails up X 1. Provided Education on: cp4 vaginal bleeding. 13:10 Abo/rh Typing Sent. cp4 13:10 Basic Metabolic Panel Sent. cp4 13:10 CBC with Diff Sent. cp4 13:10 Test, Urine Sent. cp4 13:10 Urinalysis w/ reflexes Sent. cp4 13:10 No provider procedures requiring assistance completed. Inserted saline lock: 20 gauge cp4 in right antecubital area, using aseptic technique. Blood collected. 14:36 US Transvaginal Study (Probe) In Process Unspecified. EDWY 15:53 Jinny Alexander MD is Referral Physician. [facility] 16:17 intact, bleeding controlled, No redness/swelling at site. Pressure dressing applied. cp4 Administered Medications: 13:10 Drug: NS 0.9% IV 1000 ml IV at 1 bolus Per protocol; 1000 mL bolus Route: IV; Rate: 1 cp4 bolus; Site: right antecubital; 15:11 Follow up: Response: No adverse reaction; IV Status: Completed infusion cp4 15:00 Drug: Rocephin IV 1 grams IV at per protocol once; Given slow IV push per pharmacy cp4 instructions Route: IV; Rate: per protocol; Site: right antecubital; 15:11 Follow up: Response: No adverse reaction; IV Status: Completed infusion cp4 16:18 Drug: Ciprofloxacin PO 500 mg PO once Route: PO; cp4 16:18 Follow up: Response: No adverse reaction cp4 Medication: 13:10 VIS not applicable for this client. cp4 Outcome: 15:54 Discharge ordered by . shawn 16:17 Discharged to home ambulatory, cp4 16:17 Condition: stable 16:17 Discharge instructions given to patient, Instructed on discharge instructions, follow up and referral plans. medication usage, Demonstrated understanding of instructions, follow-up care, medications, Prescriptions given X 3, 16:18 Patient left the ED. cp4 Signatures: Dispatcher [employer] EDWY Deepak Vincent MD MD cha Baxter, Heather, Michelle Marc RN, RN RN Fanny Zapata cp4 Piedad Culver ra3
[2023-10-10] MEDS ORDERED: CIPROFLOXACIN HCL 500 MG TAB ONE (16:11)
[2023-10-10 16:52] VITALS: BP 124/81; TEMP 97.9; O2SAT 100
== END 2023-10-10 16:18 | disposition home or self-care (01) ==
LOC: ER 12:22
DX: N93.8 Other specified abnormal uterine and vaginal bleeding (principal); Z98.890 Other specified postprocedural states; R30.0 Dysuria; D27.1 Benign neoplasm of left ovary; D27.0 Benign neoplasm of right ovary
CPT/HCPCS: 96361; 87088; 85025; 81001; 87086; 80048; 36415; 86900; 81025; 86901; 76830; 96374; 99284; J7030; J0696

== ENCOUNTER 2024-03-07 07:36 | Emergency (ER) | payer BC ==
--- OUTSIDE RECORDS SUMMARY | 2024-03-07 07:40 | XMS REPORT | Continuity of Care Document ---
Author Name Unknown Address [address] [facility] [address] [place] [address] [facility] [address] [facility] [place] [address] Care Team Providers Care Jewelry Maker Name Role Phone TRACY BARNES Primary Care Physician JAYLA Osborne Attending Clinician Jayla Patel CNM Attending Clinician [phone] HELEN METZ Attending Clinician HELEN Lancaster Attending Clinician TRACY Bansal Attending Clinician Unavail ousmane Barnes Tracy KRISHNA Attending Clinician + Doctor Unassigned, Garden Attending Clinician U Dhiraj Reno DO Attending Clinician [phone] [facility], [facility] Attending Clinician Keira Poon MD Attending Clinician [phone] Jonatan Cevallos Attending Clinician + [phone] JONATAN BATES Attending Clinician Lisette walter [facility] Attending Clinician Unavailable Ultrasound, [facility] Attending Clinician Jayden Robertson MD Attending Clinician [phone] [facility] Un[facility] 5, [facility] Room Attending Clinician Rima Garza Attending Clinician [phone] ROYAL, SEBASTIAN Attending Clinician Keira Barnes MD M Admitting Clinician Payers Payer Name Policy Type Policy Number Effective Date Expirati on Date Source [employer] MEDICAID [id number] 2019 00:00:00 [facility] [id number] 2023 00:00:00 Problems Condition Name Condition Details [...] amanda management Disease Active 2- 00:00: 00 General acute hospital Nexplanon removal Nexplanon removal Disease Active 2-19 00:00: 00 General acute hospital care and examinatio n of lactating mother care and examinatio n of lactating mother Disease Active - 00:00: 00 General acute hospital 38 weeks gestation of 38 weeks gestation of Disease Active 2019-05 00:00: 00 General acute hospital Obesity (BMI 30-39.9) Obesity (BMI 30-39.9) Disease Active 2019-05 00:00: 00 General acute hospital Gestationa l hypertensi on Gestationa l hypertensi on Disease Active 2019-05 00:00: 00 General acute hospital Gestationa l hypertensi on Gestationa l hypertensi on Disease Active 2019-05 00:00: 00 General acute hospital Abdominal pain, epigastric Abdominal pain, epigastric Disease Active 2019-05 00:00: 00 General acute hospital Elevated blood pressure reading without diagnosis of hypertensi on Elevated blood pressure reading without diagnosis of hypertensi on Disease Active 2019-05 00:00: 00 General acute hospital Pain of round ligament affecting , antepartum Pain of round ligament affecting , antepartum Disease Active 2019-05 00:00: 00 General acute hospital BV (bacterial vaginosis) BV (bacterial vaginosis) Disease Active 01-15 00:00: 00 General acute hospital Susceptibl e to varicella (non-immun e), currently Susceptibl e to varicella (non-immun e), currently Disease Active 10-28 00:00: 00 Overview: Formattin g of this note might be different from the original. Address pp General acute hospital Supervisio n of high-risk Supervisio n of high-risk Disease Active 10-25 00:00: 00 General acute hospital History of miscarriag e History of miscarriag e Disease Active 10-25 00:00: 00 General acute hospital History of removal of cyst History of removal of cyst Disease Active 10-25 00:00: 00 Overview: Formattin g of this note might be different from the original. Ovarian cyst in 2012 General acute hospital Allergies, Adverse Reactions, Alerts Allergy Name Allergy Type Status Severity Reaction(s) Onset Date Inactive Date Treating Clinician Comments Source NO KNOWN ALLERGIE S Drug Class Active General acute hospital Social History Social Habit Start Date Stop Date Quantity Comments Source ASSERTION 2019-08-31 00:00:00 [facility] 2023-08-09 00:00:00 2023-08-09 00:00:00 Ex-drinker (finding) [facility] History of Social function 2023-08-09 00:00:00 2023-08-09 00:00:00 [facility] Tobacco use and exposure 2023-08-09 00:00:00 2023-08-09 00:00:00 Smokeless tobacco non-user [facility] Exposure to SARS-CoV-2 (event) 2020-06-18 00:00:00 2020-07-18 13:52:00 Not sure [facility] Sex Assigned At 2000 00:00:00 2000 00:00:00 [facility] Smoking Status Start Date Stop Date Source Never Smoker [facility] Medications Ordered Medication Name Filled Medication Name Start Date Stop Date Current Medication? Ordering Clinician Indication Dosage Frequency Signature (SIG) Comments Components Source metroNIDAZO LE 500 mg tablet 07-21 00:00: 00 08-08 00:00 :00 No [id number] 500mg Take 1 tablet by mouth 2 (two) times daily. General acute hospital etonogestre L (NEXPLANON) implant 68 mg 07-04 23:15: 00 07-04 22:03 :00 No 68mg General acute hospital vit/iron fum/folic ac ( 1 + 1 ORAL) 2019-05 16:56: 47 05-13 00:00 :00 No Take by mouth. General acute hospital varicella virus vaccine live (VARIVAX (PF)) injection 0.5 mL 2019-05 12:49: 50 05-13 17:52 :00 No .5mL 0.5 mL, Subcutaneo us, ONCE-PRIOR TO DISCHARGE, 1 dose, Starting Tue05/13/20 at 0649, Until Discontinu ed, Routine, Give vaccine prior to discharge General acute hospital vitamin w/FA tablet 2019-05 00:00: 00 Yes [id number] 1{tbl} Take 1 tablet by mouth daily. General acute hospital ibuprofen 600 mg tablet 2019-05 00:00: 00 08-08 00:00 :00 No [id number] 600mg Take 1 tablet by mouth every 6 (six) hours as needed for Pain (scale 4-6). General acute hospital simethicone 80 mg chewable tablet 2019-05 00:00: 00 08-08 00:00 :00 No [id number] 160mg Take 2 tablets by mouth after meals and at bedtime as needed for Gas. General acute hospital vitamin w/FA tablet 2019-05 00:00: 00 08-08 00:00 :00 No [id number] 1{tbl} Take 1 tablet by mouth daily. General acute hospital ferrous sulfate 325 mg (65 mg iron) tablet 2019-05 00:00: 00 08-08 00:00 :00 No [id number] 325mg Take 1 tablet by mouth 2 (two) times daily. General acute hospital docusate calcium 240 mg capsule 2019-05 00:00: 00 08-08 00:00 :00 No [id number] 240mg Take 1 capsule by mouth once daily as needed for Constipati on. General acute hospital acetaminoph en 325 mg tablet 2019-05 00:00: 00 05-14 05:59 :00 No [id number] 650mg Take 2 tablets by mouth every 6 (six) hours as needed for Pain (scale 1-3). General acute hospital rho(D) immune globulin (RHOGAM) syringe 300 mcg 2019-05 16:20: 21 Yes 300ug 300 mcg, Intramuscu lar, ONCE, For 1 dose, Conditiona l, Routine General acute hospital ondansetron (ZOFRAN (PF)) injection 4 mg 2019-05 16:20: 17 Yes 4mg 4 mg, Slow IV Push, Q8HPRN, Starting Tue05/12/20 at 1020, Until Discontinu ed, Routine, Nausea and Vomiting (N/V) General acute hospital simethicone (GAS RELIEF (SIMETHICON E)) chewable tablet 160 mg 2019-05 16:20: 17 Yes 160mg 160 mg, Oral, PC+HSPRN, Starting Tue05/12/20 at 1020, Until Discontinu ed, Routine, Gas General acute hospital magnesium hydroxide (MILK OF MAGNESIA) 400 mg/5 mL suspension 30 mL 2019-05 16:20: 17 Yes 30mL 30 mL, Oral, QDAILYPRN, Starting Tue05/12/20 at 1020, Until Discontinu ed, Routine, Constipati on General acute hospital ibuprofen (IBU) tablet 600 mg 2019-05 16:20: 16 Yes 600mg 600 mg, Oral, Q6HPRN, Starting Tue05/12/20 at 1020, Until Discontinu ed, Routine, Pain (scale 4-6) General acute hospital acetaminoph en (TYLENOL) tablet 650 mg 2019-05 16:20: 16 Yes 650mg 650 mg, Oral, Q6HPRN, Starting Tue05/12/20 at 1020, Until Discontinu ed, Routine, Pain (scale 1-3) General acute hospital diphenhydrA MINE (BENADRYL) tablet 25 mg 2019-05 16:20: 16 Yes 25mg 25 mg, Oral, Q6HPRN, Starting Tue05/12/20 at 1020, Until Discontinu ed, Routine, Sleep, Itching General acute hospital diphenhydrA MINE-0.9 % sod.chlr (BENADRYL) 25 mg/50 mL piggyback 25 mg 2019-05 16:20: 16 Yes 25mg 25 mg, IV Piggyback, Administer over 30 Minutes, Q6HPRN, Starting Tue05/12/20 at 1020, Until Discontinu ed, Routine, Itching General acute hospital docusate calcium (SURFAK) capsule 240 mg 2019-05 16:20: 16 Yes 240mg 240 mg, Oral, QDAILYPRN, Starting Tue05/12/20 at 1020, Until Discontinu ed, Routine, Constipati on General acute hospital benzocaine- menthol (DERMOPLAST ) 20-0.5 % topical spray 2019-05 16:20: 16 Yes Topical, PRN, Starting Tue05/12/20 at 1020, Until Discontinu ed, Routine, Perineum discomfort General acute hospital LR 1000 mL + oxytocin 20 units IV Solution 2019-05 15:00: 00 05-12 15:00 :00 No at 125 mL/hr, IV Infusion, ONCE, 1 dose, Tue05/12/20 at 0900, Routine [facility] sodium citrate-cit aria acid (BICITRA) 500-334 mg/5 mL solution 30 mL 2019-05 07:41: 03 05-12 09:27 :00 No 30mL 30 mL, Oral, PRE-PROCED URE ONCE, 1 dose, Starting 05/12/20 at 0141, Until Discontinu ed, Routine, Surgery/Pr ocedure General acute hospital lactated ringers IV infusion 500 mL 2019-05 07:41: 03 05-12 13:43 :00 No 500mL at 999 mL/hr, 500 mL, IV Infusion, PRN - SEE INSTRUCTIO NS, 1 dose, Starting Tue05/12/20 at 0141, Until Discontinu ed, Routine General acute hospital butorphanol (STADOL) injection 1 mg 2019-05 05:15: 11 05-12 16:20 :22 No 1mg 1 mg, IV Push, Q3HPRN, Starting [place] 05/11/20 at 2315, Until Tue05/12/20 at 1020, Routine, Pain (scale 1-3) General acute hospital butorphanol (STADOL) injection 1 mg 2019-05 00:30: 00 05-11 23:27 :00 No 1mg 1 mg, IV Push, ONCE, 1 dose, [place] 05/11/20 at 1830, Routine General acute hospital D5W-LR IV infusion 1,000 mL 2019-05 20:30: 00 05-12 16:20 :22 No 1000mL at 125 mL/hr, IV Infusion, CONTINUOUS , Starting 05/11/20 at 1430, Until Tue05/12/20 at 1020, Routine General acute hospital LR 1000 mL + oxytocin 20 units IV Solution 2019-05 20:27: 04 05-12 16:20 :22 No 2mU/min at 6-120 mL/hr, IV Infusion, TITRATE, Starting 05/11/20 at 1427, Until Tue05/12/20 at 1020, GAYLE General acute hospital metroNIDAZO LE 500 mg tablet 01-15 00:00: 00 05-13 00:00 :00 No [id number] 500mg Take 1 tablet by mouth 2 (two) times daily. General acute hospital vit/iron fum/folic ac ( 1 + 1 ORAL) 612 19:29: 37 Yes Take by mouth. General acute hospital Immunizations Ordered Immunization Name Filled Immunization Name Date Status Comments Source Varicella (varivax)(chicken pox) 2020-05-13 00:00:00 Completed [facility] Varicella (varivax)(chicken pox) 2020-05-13 00:00:00 Completed [facility] Varicella (varivax)(chicken pox) 2020-05-13 00:00:00 Completed [facility] Varicella (varivax)(chicken pox) 2020-05-13 00:00:00 Completed [facility] Varicella (varivax)(chicken pox) 2020-05-13 00:00:00 Completed [facility] Varicella (varivax)(chicken pox) 2020-05-13 00:00:00 Completed [facility] Varicella (varivax)(chicken pox) 2020-05-13 00:00:00 Completed [facility] Varicella (varivax)(chicken pox) 2020-05-13 00:00:00 Completed [facility] TDAP 2020-03-13 00:00:00 Completed [facility] TDAP 2020-03-13 00:00:00 Completed [facility] TDAP 2020-03-13 00:00:00 Completed [facility] TDAP 2020-03-13 00:00:00 Completed [facility] TDAP 2020-03-13 00:00:00 Completed [facility] TDAP 2020-03-13 00:00:00 Completed [facility] TDAP 2020-03-13 00:00:00 Completed [facility] TDAP 2020-03-13 00:00:00 Completed [facility] TDAP 2020-03-13 00:00:00 Completed [facility] TDAP 2020-03-13 00:00:00 Completed [facility] TDAP 2020-03-13 00:00:00 Completed [facility] TDAP 2020-03-13 00:00:00 Completed [facility] TDAP 2020-03-13 00:00:00 Completed [facility] TDAP 2020-03-13 00:00:00 Completed [facility] TDAP Unknown Completed [facility] Varicella (varivax)(chicken pox) Unknown Completed [facility] HPV Unknown Completed [facility] DTP Unknown Completed [facility] Flu Trivalent Unknown Completed [facility] HEPATITIS A Unknown Completed [facility] Hep B, Adol or Pedi Dosage Unknown Completed [facility] Hib-HbOC Unknown Completed [facility] Meningococcal Polysaccharide (groups A, C, Y and W-135) conjugate vaccine (MCV4P) Unknown Completed [facility] Meningococcal B, OMV Unknown Completed [facility] MMR Unknown Completed [facility] Pneumococcal 7 Conjugate, PCV7 (Prevnar7) Unknown Completed [facility] IPV Unknown Completed [facility] TDAP Unknown Completed [facility] Varicella (varivax)(chicken pox) Unknown Completed [facility] HPV Unknown Completed [facility] DTP Unknown Completed [facility] Flu Trivalent Unknown Completed [facility] HEPATITIS A Unknown Completed [facility] Hep B, Adol or Pedi Dosage Unknown Completed [facility] Hib-HbOC Unknown Completed [facility] Meningococcal Polysaccharide (groups A, C, Y and W-135) conjugate vaccine (MCV4P) Unknown Completed [facility] Meningococcal B, OMV Unknown Completed [facility] MMR Unknown Completed [facility] Pneumococcal 7 Conjugate, PCV7 (Prevnar7) Unknown Completed [facility] IPV Unknown Completed [facility] TDAP Unknown Completed [facility] Varicella (varivax)(chicken pox) Unknown Completed [facility] HPV Unknown Completed [facility] TDAP Unknown Completed [facility] Varicella (varivax)(chicken pox) Unknown Completed [facility] HPV Unknown Completed [facility] TDAP Unknown Completed [facility] Varicella (varivax)(chicken pox) Unknown Completed [facility] HPV Unknown Completed [facility] TDAP Unknown Completed [facility] Varicella (varivax)(chicken pox) Unknown Completed [facility] HPV Unknown Completed [facility] Vital Signs Vital Name Observation Time Observation Value Comments S ource BP Systolic 2023-10-13 00:00:00 137 mm[Hg] [facility] BMI (Body Mass Index) 2023-10-13 00:00:00 30.3 kg/m2 [facility] BP Diastolic 2023-10-13 00:00:00 86 mm[Hg] [facility] Weight 2023-10-13 00:00:00 187.8 [lb_av] [facility] Height 2023-10-13 00:00:00 66 [in_i] [facility] BP Systolic 2023-09-28 00:00:00 119 mm[Hg] [facility] BMI (Body Mass Index) 2023-09-28 00:00:00 30.3 kg/m2 [facility] BP Diastolic 2023-09-28 00:00:00 82 mm[Hg] [facility] Weight 2023-09-28 00:00:00 187.8 [lb_av] [facility] Height 2023-09-28 00:00:00 66 [in_i] [facility] Systolic blood pressure 2023-08-09 19:01:00 130 mm[Hg] [facility] Diastolic blood pressure 2023-08-09 19:01:00 87 mm[Hg] [facility] Heart rate 2023-08-09 19:01:00 83 /min [facility] Body temperature 2023-08-09 19:01:00 36.83 [place] [facility] Respiratory rate 2023-08-09 19:01:00 18 /min [facility] Body height 2023-08-09 19:01:00 170.2 cm [facility] Body weight 2023-08-09 19:01:00 84.993 kg [facility] BMI 2023-08-09 19:01:00 29.35 kg/m2 [facility] Systolic blood pressure 2023-07-13 19:48:00 136 mm[Hg] [facility] Diastolic blood pressure 2023-07-13 19:48:00 85 mm[Hg] [facility] Heart rate 2023-07-13 19:48:00 72 [facility] Body temperature 2023-07-13 19:48:00 36.67 [place] [facility] Respiratory rate 2023-07-13 19:48:00 18 /min [facility] Body height 2023-07-13 19:48:00 170.2 cm [facility] Body weight 2023-07-13 19:48:00 85.095 kg [facility] BMI 2023-07-13 19:48:00 29.38 kg/m2 [facility] Systolic blood pressure 2023-06-29 20:03:00 130 mm[Hg] [facility] Diastolic blood pressure 2023-06-29 20:03:00 80 mm[Hg] [facility] Heart rate 2023-06-29 19:53:00 82 /min [facility] Body temperature 2023-06-29 19:53:00 36.17 [place] [facility] Respiratory rate 2023-06-29 19:53:00 18 /min [facility] Body height 2023-06-29 19:53:00 170.2 cm [facility] Body weight 2023-06-29 19:53:00 86.229 kg [facility] BMI 2023-06-29 19:53:00 29.77 kg/m2 [facility] Systolic blood pressure 2020-07-18 19:53:00 125 mm[Hg] [facility] Diastolic blood pressure 2020-07-18 19:53:00 76 mm[Hg] [facility] Heart rate 2020-07-18 19:53:00 77 /min [facility] Body temperature 2020-07-18 19:53:00 36.94 [place] [facility] Respiratory rate 2020-07-18 19:53:00 16 /min [facility] Body height 2020-07-18 19:53:00 170.2 cm [facility] Body weight 2020-07-18 19:53:00 79.946 kg [facility] BMI 2020-07-18 19:53:00 27.60 kg/m2 [facility] Systolic blood pressure 2020-07-04 21:03:00 125 mm[Hg] [facility] Diastolic blood pressure 2020-07-04 21:03:00 79 mm[Hg] [facility] Heart rate 2020-07-04 21:03:00 89 /min [facility] Body temperature 2020-07-04 21:03:00 36.94 [place] [facility] Respiratory rate 2020-07-04 21:03:00 16 /min [facility] Body height 2020-07-04 21:03:00 170.2 cm [facility] Body weight 2020-07-04 21:03:00 80.457 kg [facility] BMI 2020-07-04 21:03:00 27.78 kg/m2 [facility] Systolic blood pressure 2020-06-06 16:13:00 123 mm[Hg] [facility] Diastolic blood pressure 2020-06-06 16:13:00 84 mm[Hg] [facility] Heart rate 2020-06-06 16:13:00 68 /min [facility] Body temperature 2020-06-06 16:13:00 36.72 [place] [facility] Respiratory rate 2020-06-06 16:13:00 16 /min [facility] Body height 2020-06-06 16:13:00 172.7 cm [facility] Body weight 2020-06-06 16:13:00 34.133 kg [facility] BMI 2020-06-06 16:13:00 11.44 kg/m2 [facility] Systolic blood pressure 2020-05-19 22:08:00 118 mm[Hg] [facility] Diastolic blood pressure 2020-05-19 22:08:00 78 mm[Hg] [facility] Body temperature 2020-05-19 22:08:00 36.89 [place] [facility] Respiratory rate 2020-05-19 22:08:00 16 /min [facility] Body height 2020-05-19 22:08:00 172.7 cm [facility] Body weight 2020-05-19 22:08:00 82.214 kg [facility] BMI 2020-05-19 22:08:00 27.56 kg/m2 [facility] Systolic blood pressure 2020-05-13 18:00:00 125 mm[Hg] [facility] Diastolic blood pressure 2020-05-13 18:00:00 88 mm[Hg] [facility] Heart rate 2020-05-13 18:00:00 76 /min [facility] Body temperature 2020-05-13 18:00:00 36.67 [place] [facility] Respiratory rate 2020-05-13 18:00:00 18 /min [facility] Oxygen saturation in Arterial blood by Pulse oximetry 2020-05-13 18:00:00 98 /min [facility] Body height 2020-05-11 18:58:00 170.2 cm [facility] Body weight 2020-05-11 18:58:00 88.451 kg [facility] BMI 2020-05-11 18:58:00 30.54 kg/m2 [facility] Systolic blood pressure 2020-05-07 21:54:00 138 mm[Hg] [facility] Diastolic blood pressure 2020-05-07 21:54:00 78 mm[Hg] [facility] Heart rate 2020-05-07 21:54:00 91 /min [facility] Body temperature 2020-05-07 21:54:00 36.67 [place] [facility] Respiratory rate 2020-05-07 21:54:00 16 /min [facility] Body height 2020-05-07 21:54:00 172.7 cm [facility] Body weight 2020-05-07 21:54:00 90.436 kg [facility] BMI 2020-05-07 21:54:00 30.31 kg/m2 [facility] Systolic blood pressure 2020-05-07 21:54:00 138 mm[Hg] [facility] Diastolic blood pressure 2020-05-07 21:54:00 78 mm[Hg] [facility] Heart rate 2020-05-07 21:54:00 91 /min [facility] Body temperature 2020-05-07 21:54:00 36.67 [place] [facility] Respiratory rate 2020-05-07 21:54:00 16 /min [facility] Body height 2020-05-07 21:54:00 172.7 cm [facility] Body weight 2020-05-07 21:54:00 90.436 kg [facility] BMI 2020-05-07 21:54:00 30.31 kg/m2 [facility] Systolic blood pressure 2020-04-30 19:23:00 129 mm[Hg] [place] [facility] Diastolic blood pressure 2020-04-30 19:23:00 77 mm[Hg] [facility] Heart rate 2020-04-30 19:22:00 102 /min [facility] Body temperature 2020-04-30 19:22:00 37.06 [place] [facility] Respiratory rate 2020-04-30 19:22:00 16 /min [facility] Body height 2020-04-30 19:22:00 170.2 cm [facility] Body weight 2020-04-30 19:22:00 88.933 kg [facility] BMI 2020-04-30 19:22:00 30.71 kg/m2 [facility] Systolic blood pressure 2020-04-30 19:23:00 129 mm[Hg] [facility] Diastolic blood pressure 2020-04-30 19:23:00 77 mm[Hg] [facility] Heart rate 2020-04-30 19:22:00 102 /[facility] 2020-04-30 19:22:00 37.06 [place] [facility] Respiratory rate 2020-04-30 19:22:00 16 /min [facility] Body height 2020-04-30 19:22:00 170.2 cm [facility] Body weight 2020-04-30 19:22:00 88.933 kg [facility] BMI 2020-04-30 19:22:00 30.71 kg/m2 [facility] Systolic blood pressure 2020-04-22 21:37:00 134 mm[Hg] [facility] Diastolic blood pressure 2020-04-22 21:37:00 78 mm[Hg] [facility] Heart rate 2020-04-22 21:37:00 85 /min [facility] Body temperature 2020-04-22 21:37:00 37.06 [place] [facility] Respiratory rate 2020-04-22 21:37:00 16 /min [facility] Body height 2020-04-22 21:37:00 [facility].2 [facility] 2020-04-22 21:37:00 88.043 kg [facility] BMI 2020-04-22 21:37:00 30.40 kg/m2 [facility] Systolic blood pressure 2020-04-08 22:15:00 131 mm[Hg] [facility] Diastolic blood pressure 2020-04-08 22:15:00 78 mm[Hg] [facility] Heart rate 2020-04-08 22:12:00 96 /min [facility] Body temperature 2020-04-08 22:12:00 37.33 [place] [facility] Respiratory rate 2020-04-08 22:12:00 16 /min [facility] Body height 2020-04-08 22:12:00 170.2 cm [facility] Body weight 2020-04-08 22:12:00 86.835 kg [facility] BMI 2020-04-08 22:12:00 29.98 kg/m2 [facility] Systolic blood pressure 2020-03-27 21:18:00 120 mm[Hg] [facility] Diastolic blood pressure 2020-03-27 21:18:00 76 mm[Hg] [facility] Heart rate 2020-03-27 21:18:00 95 /min [facility] Body temperature 2020-03-27 21:18:00 37.17 [place] [facility] Respiratory rate 2020-03-27 21:18:00 16 /min [facility] Body height 2020-03-27 21:18:00 [facility].2 [facility] weight 2020-03-27 21:18:00 86.24 kg [facility] BMI 2020-03-27 21:18:00 29.78 kg/m2 [facility] Systolic blood pressure 2020-03-13 19:29:00 127 mm[Hg] [facility] Diastolic blood pressure 2020-03-13 19:29:00 80 mm[Hg] [facility] Heart rate 2020-03-13 19:29:00 94 /min [facility] Body temperature 2020-03-13 19:29:00 37.44 [place] [facility] Respiratory rate 2020-03-13 19:29:00 16 /min [facility] Body height 2020-03-13 19:29:00 170.2 cm [facility] Body weight 2020-03-13 19:29:00 84.851 kg [facility] BMI 2020-03-13 19:29:00 29.30 kg/m2 [facility] Systolic blood pressure 2020-02-28 18:28:00 136 mm[Hg] [facility] Diastolic blood pressure 2020-02-28 18:28:00 75 mm[Hg] [facility] Heart rate 2020-02-28 18:28:00 118 /min [facility] Body temperature 2020-02-28 18:28:00 37.11 [place] [facility] Respiratory rate 2020-02-28 18:28:00 16 /min [facility] Body height 2020-02-28 18:28:00 170.2 cm [facility] Body weight 2020-02-28 18:28:00 83.093 kg [facility] BMI 2020-02-28 18:28:00 28.69 kg/m2 [facility] Systolic blood pressure 2020-02-15 18:29:00 125 mm[Hg] [facility] Diastolic blood pressure 2020-02-15 18:29:00 71 mm[Hg] [facility] Heart rate 2020-02-15 18:29:00 95 /min [facility] Body temperature 2020-02-15 18:29:00 37.06 Edelmira [facility] Respiratory rate 2020-02-15 18:29:00 16 /min [facility] Body height 2020-02-15 18:29:00 170.2 cm [facility] Body weight 2020-02-15 18:29:00 82.6 kg [facility] BMI 2020-02-15 18:29:00 28.52 kg/m2 [facility] Systolic blood pressure 2020-01-14 21:04:00 133 mm[Hg] [facility] Diastolic blood pressure 2020-01-14 21:04:00 78 mm[Hg] [facility] Heart rate 2020-01-14 21:04:00 94 /min [facility] Body temperature 2020-01-14 21:04:00 37.06 Edelmira [facility] Respiratory rate 2020-01-14 21:04:00 16 /min [facility] Body height 2020-01-14 21:04:00 170.2 cm [facility] Body weight 2020-01-14 21:04:00 79.55 kg [facility] BMI 2020-01-14 21:04:00 27.47 kg/m2 [facility] BMI 2019-12-21 18:30:00 27.19 kg/m2 [facility] Systolic blood pressure 2019-12-21 18:30:00 137 mm[Hg] [facility] Diastolic blood pressure 2019-12-21 18:30:00 77 mm[Hg] [facility] Heart rate 2019-12-21 18:30:00 111 /[facility] 2019-12-21 18:30:00 36.83 Edelmira [facility] Respiratory rate 2019-12-21 18:30:00 16 /min [facility] Body height 2019-12-21 18:30:00 170.2 cm [facility] Body weight 2019-12-21 18:30:00 78.744 kg [facility] Systolic blood pressure 2019-11-23 20:27:00 123 mm[Hg] [facility] Diastolic blood pressure 2019-11-23 20:27:00 78 mm[Hg] [facility] Heart rate 2019-11-23 20:27:00 101 /min [facility] Body temperature 2019-11-23 20:27:00 37.17 Edelmira [facility] Respiratory rate 2019-11-23 20:27:00 16 /min [facility] Body height 2019-11-23 20:27:00 172.7 cm [facility] Body weight 2019-11-23 20:27:00 77.429 kg [facility] BMI 2019-11-23 20:27:00 25.95 kg/m2 [facility] Systolic blood pressure 2019-10-26 19:19:00 138 mm[Hg] [facility] Diastolic blood pressure 2019-10-26 19:19:00 83 mm[Hg] [facility] Heart rate 2019-10-26 19:19:00 93 /min [facility] Body temperature 2019-10-26 19:19:00 37.61 Edelmira [facility] Respiratory rate 2019-10-26 19:19:00 16 /min [facility] Body height 2019-10-26 19:19:00 170.2 cm [facility] Body weight 2019-10-26 19:19:00 76.856 kg [facility] BMI 2019-10-26 19:19:00 26.54 kg/m2 [facility] Procedures Procedure Date / Time Performed Performing Clinician Source Ovarian Cystectomy 2023-10-06 00:00:00 [facility] DISCLOSURE AND CONSENT, MEDICAL AND SURGICAL PROCEDURES 2023-07-13 06:01:00 Doctor Unassigned, Garden [facility] ASSIGNMENT OF BENEFITS 2023-06-29 18:47:56 Docto r Unassigned, Garden [facility] POCT TEST 2020-07-04 21:16:00 Skip Barnes [facility] CONSENT FOR CONTRACEPTION 2020-07-04 06:01:00 Do ctor Unassigned, Garden [facility] CBC WITH DIFF 2020-05-13 09:55:00 Guevara Stroud [facility] VENOUS CORD GAS 2020-05-12 14:24:00 Abhay Boogie in [facility] PROTEIN CREAT RATIO URINE RANDOM 2020-05-12 10:37:00 Maria Eugenia Hansen [facility] LACTATE DEHYDROGENASE 2020-05-12 10:28:00 Tyrone [facility] CBC WITH DIFF 2020-05-11 23:53:00 Ana Maria Roberts [facility] SGOT (ASPARTATE AMINO TRANSFER) 2020-05-11 20:58:00 Tyrone Maria Eugenia [facility] CREATININE 2020-05-11 20:58:00 Tyrone [facility] ALANINE AMINO TRANSFERASE(SGPT 2020-05-11 20:58:00 Tyrone [facility] URIC ACID 2020-05-11 20:58:00 Tyrone [facility] HEPATITIS B SURFACE ANTIGEN 2020-05-11 20:58:00 Abhay Boogie [facility] GALV ONLY - SYPHILIS IGG/IGM 2020-05-11 20:58:00 Abhay Boogie [facility] HB ABO GROUPING 2020-05-11 20:35:00 Abhay Boogie in [facility] RHO (D) IMMUNE GLOBULIN 2020-05-11 20:35:00 Luis E Stroud [facility] COVID-19 (ID NOW RAPID TESTING) 2020-05-11 18:53:00 Keira Pacheco [facility] LAB ONLY COVID INTERPRETATION 2020-05-11 18:53:00 Keira Pacheco [facility] POCT URINALYSIS 2020-05-07 21:55:00 Tracy Barnes [facility] POCT URINALYSIS 2020-04-22 21:42:00 Tracy Barnes [facility] POCT URINALYSIS 2020-04-08 22:18:00 Tracy Barnes [facility] POCT URINALYSIS 2020-03-27 21:21:00 Tracy Barnes [facility] TDAP VACCINE, >11 YRS, IM 2020-03-13 19:38:14 Tracy Barnes [facility] POCT URINALYSIS 2020-03-13 19:31:00 Tracy Barnes [facility] POCT URINALYSIS 2020-02-28 18:33:00 Tracy Barnes [facility] POCT URINALYSIS 2020-02-15 00:00:00 Tracy Barnes [facility] POCT URINALYSIS 2020-01-14 21:05:00 Tracy Barnes [facility] POCT URINALYSIS 2019-12-21 00:00:00 Tracy Barnes [facility] POCT URINALYSIS 2019-11-23 00:00:00 Tracy Barnes [facility] POCT URINALYSIS W/O SPECIFIC GRAVITY 2019-10-26 19:13:00 Tracy Barnes [facility] POCT TEST 2019-10-26 19:12:00 Skip Barnes [facility] Removal of Ovarian Cyst 2012-05-16 00:00:00 [facility] Encounters Start Date/Time End Date/Time Encounter Type Admission Type Attending [facility] Care Department Encounter ID Source 2021-03-14 13:13:44 Outpatient [facility] [id number] General acute hospital 2023-10-13 00:00:00 2023-10-13 00:00:00 CARMELLA Blair: [address], [address], [place] [id number] , Ph. [facility] GC_GCBZW_Matilde Ewing* [id number] [facility] 2023-09-28 00:00:00 2023-09-28 00:00:00 Jinny Alexander MD: [address], [address], [place] [address] , Ph. [facility] GC_GCBZW_Matilde Ewing* [id number] [facility] 2023-08-09 14:15:00 2023-08-09 14:45:23 Outpatient JAYLA HERRERA [facility] [id number] General acute hospital 2023-08-09 14:15:00 2023-08-09 14:45:23 Office Visit Jayla Walker [facility] 1.2.840.114 350.1.13.10 4.2.7.2.686 [id number] General acute hospital 2023-08-09 00:00:00 2023-08-09 00:00:00 Case Management Kathyamedardo Jayla Cox [facility] 1.2.840.114 350.1.13.10 4.2.7.2.686 [id number] General acute hospital 2023-07-20 13:45:00 2023-07-20 13:45:00 Outpatient R TRACY BARNES [facility] [id number] General acute hospital 2023-07-13 13:45:00 2023-07-13 14:32:45 Outpatient R TRACY BARNES [facility] [id number] General acute hospital 2023-07-13 13:45:00 2023-07-13 14:15:00 Office Visit Tracy Barnes [facility] 1..840.114 350.1.13.10 4.2.7.2.686 [id number] 107 [id number] General acute hospital 2023-07-13 00:00:00 2023-07-13 00:00:00 Orders Only Doctor Unassigned, Garden [facility] 1..840.114 350.1.13.10 4.2.7.2.686 [id number] General acute hospital 2023-06-29 13:30:00 2023-06-29 14:24:18 Outpatient R TRACY BARNES [facility] [id number] General acute hospital 2023-06-29 13:30:00 2023-06-29 14:24:18 Office Visit Tracy Barnes [facility] 1.2840.114 350.1.13.10 4.2.7.2.686 [id number] 107 [id number] General acute hospital 2023-06-29 00:00:00 2023-06-29 00:00:00 Orders Only Doctor Unassigned, Garden [facility] 1.2840.114 350.1.13.10 4.2.7.2.686 [id number] General acute hospital 2020-08-05 00:00:00 2020-08-05 00:00:00 Patient Outreach Dhiraj Pacheco [facility] 1.2840.114 350.1.13.10 4.2.7.2.686 [id number] General acute hospital 2020 00:00:00 2020 00:00:00 Telephone Tracy Barnes [facility] 1.840.114 350.1.13.10 4.2.7.2.686 [id number] 107 [id number] General acute hospital 2020-07-18 13:25:05 2020-07-18 14:12:18 Office Visit Tracy Barnes [facility] 1.2840.114 350.1.13.10 4.2.7.2.686 [id number] 107 [id number] General acute hospital 2020-07-18 13:15:00 2020-07-18 13:15:00 Outpatient R TRACY BARNES [facility] [id number] General acute hospital 2020-07-04 14:45:17 2020-07-04 16:08:46 Office Visit Tracy Barnes [facility] 1.2840.114 350.1.13.10 4.2.7.2.686 [id number] General acute hospital 2020-07-04 14:30:00 2020-07-04 14:30:00 Outpatient R TRACY BARNES [facility] [id number] General acute hospital 2020-07-04 00:00:00 2020-07-04 00:00:00 Orders Only Doctor Unassigned, Garden [facility] 1..840.114 350.1.13.10 4.2.7.2.686 [id number] General acute hospital 2020-06-30 15:15:00 2020-06-30 15:15:00 Outpatient TRACY COLON [facility] [id number] General acute hospital 2020-06-06 09:49:43 2020-06-06 10:42:18 Routine Visit Tracy Barnes [facility] 1..840.114 350.1.13.10 4.2.7.2.686 [id number] 107 [id number] General acute hospital 2020-06-06 09:45:00 2020-06-06 09:45:00 Outpatient TRACY COLON [facility] [id number] General acute hospital 2020-05-19 15:47:51 2020-05-19 16:26:38 Nurse Visit Visit, Ang-Rmchp Nurse Tracy Barnes [facility] ..840.114 350.1.13.10 4.2.7.2.686 [id number] 107 [id number] General acute hospital 2020-05-19 11:00:00 2020-05-19 11:00:00 Outpatient R [facility] [id number] General acute hospital 2020-05-14 15:15:00 2020-05-14 15:15:00 Outpatient R TRACY BARNES [facility] [id number] General acute hospital 2020-05-11 12:42:00 2020-05-13 12:30:00 Hospital Encounter Keira Pacheco [facility] 1.2840.114 350.1.13.10 4.2.7.2.686 [id number] General acute hospital 2020-05-07 15:47:36 2020-05-07 16:07:58 Routine Visit Jonatan Bates [facility] 1.2840.114 350.1.13.10 4.2.7.2.686 [id number] General acute hospital 2020-05-07 15:47:36 2020-05-07 16:07:58 Routine Visit Jonatan Bates [facility] 1.2840.114 350.1.13.10 4.2.7.2.686 [id number] 107 [id number] 2020-05-07 15:45:00 2020-05-07 15:45:00 Outpatient R JONATAN BATES [facility] [id number] General acute hospital 2020-04-30 12:50:30 2020-04-30 13:49:04 Routine Visit Tracy Barnes [facility] 1.2840.114 350.1.13.10 4.2.7.2.686 [id number] General acute hospital 2020-04-30 12:50:30 2020-04-30 13:49:04 Routine Visit Tracy Barnes [facility] 1.2840.114 350.1.13.10 4.2.7.2.686 [id number] 2020-04-30 13:00:00 2020-04-30 13:00:00 Outpatient R TRACY BARNES [facility] [id number] General acute hospital 2020-04-22 15:27:28 2020-04-22 16:08:10 Routine Visit Tracy Barnes [facility] 1.84.114 350.1.13.10 4.2.7.2.686 [id number] 107 [id number] General acute hospital 2020-04-22 15:30:00 2020-04-22 15:30:00 Outpatient R TRACY BARNES [facility] [id number] General acute hospital 2020-04-09 14:00:00 2020-04-09 14:00:00 Outpatient R TRACY BARNES [facility] [id number] General acute hospital 2020-04-08 15:42:39 2020-04-08 16:24:32 Routine Visit JerrelltammieTracy [facility] .840.114 350.1.13.10 4.2.7.2.686 [id number] 107 [id number] General acute hospital 2020-04-08 15:45:00 2020-04-08 15:45:00 Outpatient R TRACY BARNES [facility] [id number] General acute hospital 2020-03-27 14:56:11 2020-03-27 15:11:11 Routine Visit JerrelltammieTracy [facility] 1.840.114 350.1.13.10 4.2.7.2.686 [id number] General acute hospital 2020-03-27 15:00:00 2020-03-27 15:00:00 Outpatient R TRACY BARNES [facility] [id number] General acute hospital 2020-03-13 14:12:02 2020-03-13 15:05:17 Routine Visit AkinaundreaTitaTracy Duglas [facility] 1.840.114 350.1.13.10 4.2.7.2.686 [id number] 107 [id number] General acute hospital 2020-03-13 14:00:00 2020-03-13 14:00:00 Outpatient R TRACY BARNES [facility] [id number] General acute hospital 2020-03-07 00:00:00 2020-03-07 00:00:00 Abstract Tracy Barnes [facility] 1.2840.114 350.1.13.10 4.2.7.2.686 [id number] 107 [id number] General acute hospital 2020-02-29 08:08:01 2020-02-29 09:58:54 Oceanology Teacher Visit Lab, Tracy Marte [facility] 1.2840.114 350.1.13.10 4.2.7.2.686 [id number] General acute hospital 2020-02-29 08:15:00 2020-02-29 08:15:00 Outpatient R [facility] [id number] General acute hospital 2020-02-28 14:20:07 2020-02-28 14:50:07 Oceanology Teacher Visit Ultrasound, Tracy Connell Shannon M [facility] 1.840.114 350.1.13.10 4.2.7.2.686 [id number] General acute hospital 2020-02-28 13:07:00 2020-02-28 14:05:02 Routine Visit Tracy Barnes [facility] 1.2.114 350.1.13.10 4.2.7.2.686 [id number] General acute hospital 2020-02-28 13:15:00 2020-02-28 13:15:00 Outpatient R TRACY BARNES [facility] [id number] General acute hospital 2020-02-15 13:06:03 2020-02-15 13:45:56 Routine Visit Tracy Barnes [facility] 1.2.840.114 350.1.13.10 4.2.7.2.686 [id number] General acute hospital 2020-02-15 13:00:00 2020-02-15 13:00:00 Outpatient R TRACY BARNES [facility] [id number] General acute hospital 2020-01-18 13:00:00 2020-01-18 13:00:00 Outpatient R TRACY BARNES [facility] [id number] General acute hospital 2020-01-17 00:00:00 2020-01-17 00:00:00 Telephone Tracy Barnes [facility] 1.2.840.114 350.1.13.10 4.2.7.2.686 [id number] General acute hospital 2020-01-16 00:00:00 2020-01-16 00:00:00 Telephone Tracy Barnes [facility] 1.2.840.114 350.1.13.10 4.2.7.2.686 [id number] General acute hospital 2020-01-14 15:54:15 2020-01-14 16:25:55 Routine Visit Tracy Barnes [facility] 1.2.840.114 350.1.13.10 4.2.7.2.686 [id number] 107 [id number] General acute hospital 2020-01-14 16:00:00 2020-01-14 16:00:00 Outpatient R TRACY BARNES [facility] [id number] General acute hospital 2020-01-11 00:00:00 2020-01-11 00:00:00 Telephone Tracy Barnes [facility] 1.2.840.114 350.1.13.10 4.2.7.2.686 [id number] 107 [id number] General acute hospital 2020-01-08 00:00:00 2020-01-08 00:00:00 Abstract Tracy Barnes [facility] 1.2.840.114 350.1.13.10 4.2.7.2.686 [id number] General acute hospital 2020-01-03 13:53:31 2020-01-03 14:53:31 Oceanology Teacher Visit Ultrasound, Jayden Reed [facility] 1.2.840.114 350.1.13.10 4.2.7.2.686 [id number] General acute hospital 2020-01-03 14:00:00 2020-01-03 14:00:00 Outpatient P [facility] [id number] General acute hospital 2019-12-24 00:00:00 2019-12-24 00:00:00 Patient Secure Msg Doctor Unassigned, Garden [facility] 1.2.840.114 350.1.13.10 4.2.7.2.686 [id number] General acute hospital 2019-12-21 13:22:06 2019-12-21 14:05:09 Routine Visit Tracy Barnes Duglas [facility] 1.2.840.114 350.1.13.10 4.2.7.2.686 [id number] General acute hospital 2019-12-21 13:30:00 2019-12-21 13:30:00 Outpatient R TRACY BARNES [facility] [id number] General acute hospital 2019-11-23 15:17:29 2019-11-23 15:51:23 Routine Visit Tracy Barnes [facility] 1.2840.114 350.1.13.10 4.2.7.2.686 [id number] General acute hospital 2019-11-23 15:30:00 2019-11-23 15:30:00 Outpatient R TRACY BARNES [facility] [id number] General acute hospital 2019-11-14 14:34:11 2019-11-14 14:49:11 Oceanology Teacher Visit Lab, [facility] Keira Pacheco [facility] 1.840.114 350.1.13.10 4.2.7.2.686 [id number] General acute hospital 2019-11-14 13:18:19 2019-11-14 14:03:19 Oceanology Teacher Visit 5, [facility] Us Room Keira Pacheco [facility] 1..114 350.1.13.10 4.2.7.2.686 [id number] General acute hospital 2019-11-14 13:00:00 2019-11-14 13:00:00 Outpatient P [facility] [id number] General acute hospital 2019-11-14 00:00:00 2019-11-14 00:00:00 Case Management Rima Brothers [facility] 1..114 350.1.13.10 4.2.7.2.686 [id number] General acute hospital 2019-11-14 00:00:00 2019-11-14 00:00:00 Abstract Tracy Barnes [facility] 1.2840.114 350.1.13.10 4.2.7.2.686 [id number] 107 [id number] General acute hospital 2019-10-26 14:10:05 2019-10-26 15:15:09 Initial Visit Tracy Barnes [facility] 1.2.840.114 350.1.13.10 4.2.7.2.686 [id number] 107 [id number] General acute hospital 2019-10-26 14:00:00 2019-10-26 14:00:00 Outpatient R SEBASTIAN PAIGE [facility] [id number] General acute hospital Results Test Description Test Time Test Comments Results Resul t Comments Source infectious disease panel 2023-09-28 11:32:00 [facility]normal Status [facility] [id number] 21:16:00* Test Item Value Reference Range Interpretation Comme nts POCT PREG (test code = 1605) Negative On board controls acceptable with C Line (test code = 3574) Yes POCT PREG LOT # (test code = 3575) POCT PREG TEST DATE ( test code = 3576[id number] 21:16:00* Test Item Value Reference Range Interpretation Comme nts POCT PREG (test code = 1605) Negative On board controls acceptable with C Line (test code = 3574) Yes POCT PREG LOT # (test code = 3575) POCT PREG TEST DATE ( test code = 3576) [facility] [id number] 21:16:00* Test Item Value Reference Range Interpretation Comme nts POCT PREG (test code = 1605) Negative On board controls acceptable with C Line (test code = 3574) Yes POCT PREG LOT # (test code = 3575) POCT PREG TEST DATE ( test code = 3576) [facility] [id number] 10:16:00* Test Item Value Reference Range Interpretation [...] 32.3 g/dL 31.6-35.1 RDW-SD (test code = 14450-6) 43.1 fL 39-49.9 RDW-CV (test code = 788-0) 13.9 % 12-15.5 PLT (test code = 777-3) See_Comment [Automated [employer] ge] The system which generated this result transmitted reference range: 166 - 358 10*3/?L. The reference range was not used to interpret this result as normal/abnormal. MPV (test code = 25778-6) 10.6 fL 9.5-12.9 NRBC/100 WBC (test code = 5260790217) See_Comment [Automated [employer] ssage] The system which generated this result transmitted reference range: 0.0 - 10.0 /100 WBCs. The reference range was not used to interpret this result as normal/abnormal. NRBC x10^3 (test code = 9355039953) <0.01 See_Comment [Automated [employer]] The system which generated this result transmitted reference range: 10*3/?L. The reference range was not used to interpret this result as normal/abnormal. GRAN MAT (NEUT) % (test code = 770-8) 66.7 % IMM GRAN % (test code = 5243786371) 1.00 % LYMPH % (test code = 736-9) 22.4 % MONO % (test code = 5905-5) 7.6 % EOS % (test code = 713-8) 2.0 % BASO % (test code = 706-2) 0.3 % GRAN MAT x10^3(ANC) (test code = 2189006880) 5.95 10*3/uL 1.88-7.09 IMM GRAN x10^3 (test code = 4121554044) 0.09 10*3/uL 0-0.06 H LYMPH x10^3 (test code = 731-0) 2.00 10*3/uL 1.32-3.29 MONO x10^3 (test code = 742-7) 0.68 10*3/uL 0.33-0.92 EOS x10^3 (test code = 711-2) 0.18 10*3/uL 0.03-0.39 BASO x10^3 (test code = 704-7) 0.03 10*3/uL 0.01-0.07 Lab Interpretation (test code = 36086-9) [facility] [id number] 22:13:00COVID DMT InterpretationInterpretation/Recommendations: Molecular NAAT Tests for Active Infection with the SARS-CoV-2 Virus: This result indicates that the patient has been infected with the SARS-CoV-2 virus that causes COVID-19 illness. The patient should be considered infectious and able to transmit the virus within the first 10 days after symptom onset in rdal-yk-vhgvgirw illness and within the first 20 days [...] COVID-19 testing the patient has had at [facility], including molecular NAAT testing (more commonly known as PCR testing and Rapid ID Now testing) and antibody testing. It does not take into account any testing that a patient has had outside of the [facility] medical record. [facility] LABORATORY SERVICESCOVID Results SARS-CoV-2 Rapid ID NOW (no units) ? ? Date ? Value ? 05/11/2020 ? Positive (A) ? CoV-2 IgG (no units) ? ? Date ? Value ? 04/30/2020 ? Negative ? ? ? [facility]Un[facility] - SYPHILIS [id number] 16:27:00* Test Item Value Reference Range Interpretation Comme nts Syphilis IgG/IgM (test code = 80732-3) Non-reactive Non-reactive PAULO (test code = PAULO) Non-reactive - No serologic evidence of T. pallidum infection. Cannot exclude incubating or early syphilis. Submit a second specimen in 2-4 weeks if syphilis is clinically suspected. Equivocal - Further testing to follow. Reactive - Further testing to follow. Lab Interpretation (test code = 33714-6) [facility] IMMUNE [id number] 16:24:32* Test Item Value Reference Range Interpretation Comme nts RHIG CANDIDATE? (test code = 5055) No- see comment Patient is not a candidate for RhIg- Patient is Rh Positive.Performed at [facility] Laboratory Services - [facility] Blood [id number] [place] [id number] Free: [phone] No. [id number] [facility] Tyler[facility] CORD [id number] 14:42:00* Test Item Value Reference Range Interpretation Comme nts VENOUS BASE EXCESS, CORD (test code = 2604174845) mEq/L VENOUS PH, CORD (test code = 8249115424) 7.25-7.45 VENOUS PC02, CORD (test code = 0674600776) See_Comment [Automated messa ge] The system which generated this result transmitted reference range: 27 - 49 mmHg. The reference range was not used to interpret this result as normal/abnormal. VENOUS PO2, CORD (test code = 6950024550) See_Comment [Automated me ssage] The system which generated this result transmitted reference range: 17 - 41 mmHg. The reference range was not used to interpret this result as normal/abnormal. VENOUS BICARBONATE, CORD (test code = 2105279938) See_Comment [Automated messa ge] The system which generated this result transmitted reference range: 12 - 29 mEq/L. The reference range was not used to interpret this result as normal/abnormal. [facility] Tyler[facility] CORD [id number] 14:41:00* Test Item Value Reference Range Interpretation Comme nts BASE EXCESS, CORD (test code = 3187220657) mEq/L AC PH, CORD (BEAKER) (test code = 2363424055) 7.18-7.38 PC02, CORD (test code = 7149404842) See_Comment [Automated messa ge] The system which generated this result transmitted reference range: 32 - 66 mmHg. The reference range was not used to interpret this result as normal/abnormal. PO2, CORD (test code = 2841486918) See_Comment [Automated messa ge] The system which generated this result transmitted reference range: 10 - 30 mmHg. The reference range was not used to interpret this result as normal/abnormal. BICARBONATE, CORD (test code = 1793988546) See_Comment [Automated messa ge] The system which generated this result transmitted reference range: 17 - 27 mEq/L. The reference range was not used to interpret this result as normal/abnormal. [facility] TylerLACTATE [id number] 11:33:00* Test Item Value Reference Range Interpretation Comme [facility] LDH (test code = 6097435212) 552 U/L 300-600 Lab Interpretation (test cod e = 72550-5) Normal [facility] TylerPROTEIN CREAT RATIO URINE [id number] 11:32:00* Test Item Value Reference Range Interpretation Comme nts T. PROT U (test code = 2888-6) 16 mg/dL CREAT U (test code = 7639330216) 195.4 mg/dL Protein/Creatinine Ratio Uri ne (test code = 8982157975) 0.0-2.0 [facility] TylerALANINE AMINO TRANSFERASE([id number] 10:54:00* Test Item Value Reference Range Interpretation Comme nts ALTv (test code = 1742-6) 24 U/L 5-35 Lab Interpretation (test cod e = 21195-5) Normal [facility] TylerCREATININE2020-12-28 10:54:00* Test Item Value Reference Range Interpretation Comme nts CREATININE (test code = 1211726320) 0.48 mg/dL 0.5-1.04 L eGFR Calculation (Non-) (test code = 2624322286) mL/min/1.73m2 eGFR Calculation () (test code = 4415893481) mL/min/1.73m2 PAULO (test code = PAULO) Association [...] imaging tests). Lab Interpretation (test code = 11208-6) [facility]normal [facility] TylerSGOT (ASPARTATE AMINO TRANSFER)2020-05-12 10:54:00* Test Item Value Reference Range Interpretation Comme nts AST(SGOT) (test code = 3691515023) 29 U/L 13-40 Lab Interpretation (test cod e = 14348-1) Normal [facility] TylerURIC [id number] 10:54:00* Test Item Value Reference Range Interpretation Comme nts URIC ACID (test code = 0173051138) 4.6 mg/dL 2.9-6 Lab Interpretation (test cod e = 05625-5) Normal [facility] TylerCBC WITH [id number] 00:11:00* Test Item Value Reference Range Interpretation Comme nts WBC (test code = 6690-2) See_Comment [Automated [employer]] The system which generated this result transmitted reference range: 4.30 - 11.10 10*3/?L. The reference range was not used to interpret this result as normal/abnormal. RBC (test code = 789-8) See_Comment [Automated [employer]] The system which generated this result transmitted [...] 32.0 g/dL 31.6-35.1 RDW-SD (test code = 39472-0) 42.4 fL 39-49.9 RDW-CV (test code = 788-0) 13.6 % 12-15.5 PLT (test code = 777-3) See_Comment [Automated messa ge] The system which generated this result transmitted reference range: 166 - 358 10*3/?L. The reference range was not used to interpret this result as normal/abnormal. MPV (test code = 12098-4) 11.3 fL 9.5-12.9 NRBC/100 WBC (test code = 3204899658) See_Comment [Automated [employer] ssage] The system which generated this result transmitted reference range: 0.0 - 10.0 /100 WBCs. The reference range was not used to interpret this result as normal/abnormal. NRBC x10^3 (test code = 5581745863) <0.01 See_Comment [Automated messa ge] The system which generated this result transmitted reference range: 10*3/?L. The reference range was not used to interpret this result as normal/abnormal. GRAN MAT (NEUT) % (test code = 770-8) 68.5 % IMM GRAN % (test code = 9598144900) 0.90 % LYMPH % (test code = 736-9) 23.2 % MONO % (test code = 5905-5) 5.6 % EOS % (test code = 713-8) 1.5 % BASO % (test code = 706-2) 0.3 % GRAN MAT x10^3(ANC) (test code = 0254682412) 4.56 10*3/uL 1.88-7.09 IMM GRAN x10^3 (test code = 6626233276) 0.06 10*3/uL 0-0.06 LYMPH x10^3 (test code = 731-0) 1.54 10*3/uL 1.32-3.29 MONO x10^3 (test code = 742-7) 0.37 10*3/uL 0.33-0.92 EOS x10^3 (test code = 711-2) 0.10 10*3/uL 0.03-0.39 BASO x10^3 (test code = 704-7) <0.03 0.01-0.07 Lab Interpretation (test code = 45920-3) [facility]normal [facility] TylerHepatitis B Surface [id number] 22:15:00 * Test Item Value Reference Range Interpretation Comme nts HBsAg Semi-Quantitative (mary t code = 5195-3) Negative Negative [facility] TylerType and Screen - ONCE [id number] 21:49:19 * Test Item Value Reference Range Interpretation Comme nts ABO & RH (test code = 20) O POSITIVE Performed at [facility] Laboratory Services - [facility] Blood [address] Free: [phone] No. [id number] IAT (test code = 1185) Negative Performed at [facility] Laboratory Services - [facility] Blood [address] Free: [phone] No. 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 It is used under Emergency Use [...] clinically indicated. Lab Interpretation (test code = 49427-1) Abnormal [facility] TylerPO[facility] URINALYS[facility] W SPECIFIC [id number] 21:55:00* Test Item Value Reference Range Interpretation [...] POCT U APPEAR (test code = 3267) [facility] URINALYSIS W SPECIFIC [id number] 21:42:00* Test Item Value Reference Range Interpretation [...] POCT U APPEAR (test code = 3267) [facility] URINALYSIS W SPECIFIC [id number] 22:18:00* Test Item Value Reference Range Interpretation [...] POCT U APPEAR (test code = 3267) [facility] URINALYSIS W SPECIFIC [id number] 21:21:00* Test Item Value Reference Range Interpretation [...] POCT U APPEAR (test code = 3267) [facility] URINALYSIS W SPECIFIC [id number] 21:21:00* Test Item Value Reference Range Interpretation [...] POCT U APPEAR (test code = 3267) [facility] URINALYSIS W SPECIFIC [id number] 19:31:00* Test Item Value Reference Range Interpretation [...] POCT U APPEAR (test code = 3267) [facility] URINALYSIS W SPECIFIC [id number] 18:33:00* Test Item Value Reference Range Interpretation [...] POCT U APPEAR (test code = 3267) [facility] URINALYSIS W SPECIFIC [id number] 18:31:00* Test Item Value Reference Range Interpretation [...] POCT U APPEAR (test code = 3267) [facility] URINALYSIS W SPECIFIC [id number] 18:31:00* Test Item Value Reference Range Interpretation [...] POCT U APPEAR (test code = 3267) [facility] URINALYSIS W SPECIFIC [id number] 18:31:00* Test Item Value Reference Range Interpretation [...] POCT U APPEAR (test code = 3267) [facility] URINALYSIS W SPECIFIC [id number] 18:31:00* Test Item Value Reference Range Interpretation [...] POCT U APPEAR (test code = 3267) [facility] URINALYSIS W SPECIFIC [id number] 21:05:00* Test Item Value Reference Range Interpretation [...] POCT U APPEAR (test code = 3267) [facility] URINALYSIS W SPECIFIC [id number] 21:05:00* Test Item Value Reference Range Interpretation [...] POCT U APPEAR (test code = 3267) [facility] URINALYSIS W SPECIFIC [id number] 18:32:00* Test Item Value Reference Range Interpretation [...] POCT U APPEAR (test code = 3267) [facility] URINALYSIS W SPECIFIC [id number] 20:29:00* Test Item Value Reference Range Interpretation [...] POCT U APPEAR (test code = 3267) [facility] URINALYSIS W/O SPECIFIC [id number] 19:13:00* Test Item Value Reference Range Interpretation [...] = 3257) Neg Negative - Negati ve [facility] URINALYSIS W/O SPECIFIC [id number] 19:13:00* Test Item Value Reference Range Interpretation [...] = 3257) Neg Negative - Negati ve [facility] URINALYSIS W/O SPECIFIC [id number] 19:13:00* Test Item Value Reference Range Interpretation [...] = 3257) Neg Negative - Negati ve [facility] URINALYSIS W/O SPECIFIC [id number] 19:13:00* Test Item Value Reference Range Interpretation [...] = 3257) Neg Negative - Negati ve [facility] [id number] 19:12:00* Test Item Value Reference Range Interpretation Comme nts POCT PREG (test code = 1605) Positive On board controls acceptable with C Line (test code = 3574) Yes POCT PREG LOT # (test code = 3575) POCT PREG TEST DATE ( test code = 3576) [facility] [id number] 19:12:00* Test Item Value Reference Range Interpretation Comme nts POCT PREG (test code = 1605) Positive On board controls acceptable with C Line (test code = 3574) Yes POCT PREG LOT # (test code = 3575) POCT PREG TEST DATE ( test code = 3576) [facility]POOH [id number] 19:12:00* Test Item Value Reference Range Interpretation Comme nts POCT PREG (test code = 1605) Positive On board controls acceptable with C Line (test code = 3574) Yes POCT PREG LOT # (test code = 3575) POCT PREG TEST DATE ( test code = 3576) [facility] [id number] 19:12:00* Test Item Value Reference Range Interpretation Comme nts POCT PREG (test code = 1605) Positive On board controls acceptable with C Line (test code = 3574) Yes POCT PREG LOT # (test code = 3575) POCT PREG TEST DATE ( test code = 3576) [facility]"
[2024-03-07] MEDS ORDERED: NA CHLORIDE 0.9% 1,000 ML ONE (07:47)
[2024-03-07 08:49] LABS: Absolute Eosinophils 0.1 K/uL (0-0.5); Absolute Lymphocytes (CBC) 1.7 K/uL (0.7-4.9); Absolute Monocytes 0.5 K/uL (0.1-1.3); Absolute Neutrophil 8.6 K/uL (1.8-8.0); Basophils % 0.2 % (0-1.3); Eosinophils % 0.8 % (0-4.4); Hematocrit 39.5 % (36.0-45.0); Hemoglobin 13.3 g/dL (12.0-15.0); Lymphocytes % 15.8 % (15.3-44.8); MCH 29.3 pg (27.0-35.0); MCHC 33.6 g/dL (32.0-36.0); MCV 87.2 fL (80-100); MPV 7.9 fL (7.6-11.3); Monocytes % 4.6 % (3.3-12.3); Neutrophils % 78.6 % (41.7-73.7); Platelets 295 thou/uL (152-406); RBC Red Blood Cell Count 4.53 M/uL (3.86-4.86); Red Cell Distribution Width 14.2 % (12.1-15.2)
[2024-03-07 09:21] LABS: Anion Gap 8.5 mEq/L (5.0-15.0); Potassium 3.5 mEq/L (3.5-5.1)
--- NOTE | 2024-03-07 09:21 | RAD REPORT ---
EXAMINATION: Transvaginal OB COMPARISON: None. HISTORY: [facility] MAIN ABD CRAMPING, Bed Name: 19 TECHNIQUE: Real-time ultrasound was performed through the pelvis. A transvaginal scan was performed t o better visualize the intrauterine contents and adnexa. FINDINGS: There is a single living intrauterine . Questionable small focus of hypoattenuation in the lower uterine segment measuring up to 7 mm, could represent a small subchorionic bleed. Both ovaries are visualized and appear unremarkable. There is no free fluid in the cul-de-sac. Measurements and Calculations: Mean sac diameter measures 1.1 cm, consistent with a sonographic age of 5 weeks, 6. LMP dates are not stated. No pole was visualized. heart rate: 99 BPM. IMPRESSION: Single living intrauterine with identifiable heart rate, with a composite sonographic age o f 5 weeks, 6 days based on mean sac diameter, although a discrete pole was not visualized. Questionable small focus of hypoattenuation measuring 7 mm in the lower uterine segment, distant rela tive to the decidua, could represent a small subchorionic bleed. Close clinical follow-up, and short-term repeat sonographic follow-up in 7-10 days are recommended.
--- NOTE | 2024-03-07 09:41 | ER ---
Nurse's Notes [facility] Name: Marquita Jauregui Age: 23 yrs Sex: Female : 2000 Arrival Date: 03/07/2024 Time: 07:36 Bed 19 Private MD: Diagnosis: Threatened ;Less than 8 weeks gestation of ;UTI/ Urinary tract infection, site not specified Presentation: 03/07 07:49 Chief complaint: Patient states: 5 WEEKS . VAGINAL BLEEDING STARTED TODAY CYST db REMOVAL JUNE. Coronavirus screen: Client denies travel out of the [place] in the last 14 days. At this time, the client does not indicate any symptoms associated with coronavirus-19. Ebola Screen: Patient negative for fever greater than or equal to 101.5 degrees Fahrenheit, and additional compatible Ebola Virus Disease symptoms Patient denies exposure to infectious person. Patient denies travel to an Ebola-affected area in the 21 days before illness onset. No symptoms or risks identified at this time. Initial Sepsis Screen: Does the patient meet any 2 criteria? No. Patient's initial sepsis screen is negative. Does the patient have a suspected source of infection? No. Patient's initial sepsis screen is negative. Risk Assessment: Do you want to hurt yourself or someone else? Patient reports no desire to harm self or others. Onset of symptoms was March 07, 2024. 07:49 Method Of Arrival: Ambulatory db 07:49 Acuity: COLUMBA 3 db Triage Assessment: 07:50 General: Appears in no apparent distress. comfortable, Behavior is calm, cooperative. db Pain: Denies pain. : Reports vaginal bleeding that is. 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 - Infectious Disease History:: Denies. - Social history:: Smoking status: Patient denies any tobacco usage or history of. Screenin:52 [facility] ED Fall Risk Assessment (Adult) History of falling in the last 3 months, db including since admission No falls in past 3 months (0 pts) Confusion or Disorientation No (0 pts) Intoxicated or Sedated No (0 pts) Impaired Gait No (0 pts) Mobility Assist Device Used No (0 pt) Altered Elimination No (0 pt) Score/Fall Risk Level 0 - 2 = Low Risk Oriented to surroundings, Maintained a safe environment. 10:22 Abuse screen: Denies threats or abuse. Denies injuries from another. Nutritional db screening: No deficits noted. Tuberculosis screening: No symptoms or risk factors identified. Assessment: 08:47 Obstetrical Assessment: General assessment: awake and alert, skin warm and dry. db Reassessment: Patient appears in no apparent distress at this time. Patient and/or family updated on plan of care and expected duration. Pain level reassessed. Patient is alert, oriented x 3, equal unlabored respirations, skin warm/dry/pink. General: Appears in no apparent distress. comfortable, Behavior is calm, cooperative. Neuro: Level of Consciousness is awake, alert, obeys commands, Oriented to person, place, time, situation. Respiratory: Airway is patent Respiratory effort is even, unlabored, Respiratory pattern is regular, symmetrical. 10:05 Reassessment: Patient appears in no apparent distress at this time. Patient and/or db family updated on plan of care and expected duration. Pain level reassessed. Patient is alert, oriented x 3, equal unlabored respirations, skin warm/dry/pink. PATIENT DC PENDING SHOT REACTION TIME FOR ROCEPHIN Patient states feeling better. 10:22 Reassessment: Patient appears in no apparent distress at this time. Patient and/or db family updated on plan of care and expected duration. Pain level reassessed. Patient is alert, oriented x 3, equal unlabored respirations, skin warm/dry/pink. Patient states feeling better. Patient states symptoms have improved. Vital Signs: 07:49 BP 141 / 84; Pulse 55; Resp 18; Temp 98; Pulse Ox 100% ; Weight 81.19 kg; Height 5 ft. db 6 in. ; 09:00 BP 123 / 67; Pulse 90; Resp 18; Pulse Ox 100% on R/A; db 10:00 BP 134 / 77; Pulse 92; Resp 18; Pulse Ox 100% on R/A; db 07:49 Body Mass Index 28.89 (81.19 kg, 167.64 cm) db Vitals: 10:23 Heart Tones UNABLE TO ASSESS. db ED Course: 07:38 Patient arrived in ED. im 07:41 Deepak Vincent MD is Attending Physician. shawn 07:48 Tia Aguillon, RJ is Primary Nurse. db 07:48 Patient taken to ultrasound. db 07:50 Triage completed. db 07:50 Arm band placed on Patient placed in an exam room. db 08:32 US Transvaginal Ob In Process Unspecified. EDMS 08:34 Patient moved back from ultrasound. db 08:40 Initial lab(s) drawn, by me, sent to lab. Inserted saline lock: 20 gauge in right db antecubital area, using aseptic technique. Blood collected. Flushed with 10 mL NS. 09:37 Urinalysis w/ reflexes Sent. bc6 09:37 Test, Urine Sent. bc6 10:09 Attending Physician role handed off by Deepak Vincent MD rn 10:09 Tra Weathers MD is Attending Physician. rn 10:09 Deepak Vincent MD is Attending Physician. rn 10:15 Patient has correct armband on for positive identification. Bed in low position. Call db light in reach. Side rails up X 1. Pulse ox on. NIBP on. Warm blanket given. Pillow given. 10:22 Provided Education on: DISCHARGE. db 10:22 No provider procedures requiring assistance completed. IV discontinued, intact, db bleeding controlled, No redness/swelling at site. Administered Medications: 08:40 Drug: NS 0.9% IV 1000 ml IV at 1000 ml once; to be given as a bolus over 60 minutes db Route: IV; Rate: 1000 ml; Site: right antecubital; 09:45 Follow up: Response: No adverse reaction; IV Status: Completed infusion; IV Intake: db 1000ml 10:05 Drug: Rocephin IV 1 grams IV at per protocol once; Given slow IV push per pharmacy db instructions Route: IV; Rate: per protocol; Site: right antecubital; 10:21 Follow up: Response: No adverse reaction; IV Status: Completed infusion; IV Intake: 50mldb 10:05 Drug: Cefdinir PO 300 mg PO once Route: PO; db 10:21 Follow up: Response: No adverse reaction db Medication: 08:53 VIS not applicable for this client. db Intake: 09:45 IV: 1000ml; Total: 1000ml. db 10:21 IV: 50ml; Total: 1050ml. db Outcome: 09:41 Discharge ordered by . shawn 10:22 Discharged to home ambulatory, with family, constantino 10:22 Condition: stable 10:22 Discharge instructions given to patient, family, Instructed on discharge instructions, follow up and referral plans. Prescriptions given X 1, 10:23 Patient left the ED. db Signatures: Dispatcher [employer] EDMS Deepak Vincent MD MD cha Nieto, Roman, MD MD rn Benton, Danielle, RN RN Anca Gu 6 Leanna Fuentes Corrections: (The following items were deleted from the chart) 07:50 07:50 Social history: Smoking status: unknown db db 08:28 07:49 Chief complaint: Patient states: 4 WEEKS . VAGINAL BLEEDING STARTED TODAY db CYST REMOVAL JUNE db 08:28 07:50 LMP 02/25/2024, unknown db db
--- NOTE | 2024-03-07 09:42 | EDPHYS ---
Physician Documentation [facility] Name: Marquita Jauregui Age: 23 yrs Sex: Female : 2000 Arrival Date: 03/07/2024 Time: 07:36 Bed 19 Private MD: ED Physician Deepak Vincent HPI: 03/07 09:02 This 23 yrs old Female presents to ER via Ambulatory with complaints of shawn Vaginal Bleeding, + Preg <12wks. 09:02 The patient presents to the emergency department with vaginal bleeding, that is light. shawn The estimated gestational age is 5 weeks. 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 - Infectious Disease History:: Denies. - Social history:: Smoking status: Patient denies any tobacco usage or history of. ROS: 09:36 Constitutional: Negative for fever, chills, and weight loss, Eyes: Negative for injury, shawn pain, redness, and discharge, ENT: Negative for injury, pain, and discharge, Neck: Negative for injury, pain, and swelling, Cardiovascular: Negative for chest pain, palpitations, and edema, Respiratory: Negative for shortness of breath, cough, wheezing, and pleuritic chest pain, Abdomen/GI: Negative for abdominal pain, nausea, vomiting, diarrhea, and constipation, Back: Negative for injury and pain, MS/Extremity: Negative for injury and deformity, Skin: Negative for injury, rash, and discoloration, Neuro: Negative for headache, weakness, numbness, tingling, and seizure, Psych: Negative for depression, anxiety, suicide ideation, homicidal ideation, and hallucinations, Allergy/Immunology: Negative for hives, rash, and allergies, Endocrine: Negative for neck swelling, polydipsia, polyuria, polyphagia, and marked weight changes, Hematologic/Lymphatic: Negative for swollen nodes, abnormal bleeding, and unusual bruising, 09:36 : Positive for vaginal bleeding, Exam: 09:36 Constitutional: This is a well developed, well nourished patient who is awake, alert, shawn and in no acute distress. Head/Face: Normocephalic, atraumatic. Eyes: Pupils equal round and reactive to light, extra-ocular motions intact. Lids and lashes normal. Conjunctiva and sclera are non-icteric and not injected. Cornea within normal limits. Periorbital areas with no swelling, redness, or edema. ENT: Nares patent. No nasal discharge, no septal abnormalities noted. Tympanic membranes are normal and external auditory canals are clear. Oropharynx with no redness, swelling, or masses, exudates, or evidence of obstruction, uvula midline. Mucous membranes moist. Neck: Trachea midline, no thyromegaly or masses palpated, and no cervical lymphadenopathy. Supple, full range of motion without nuchal rigidity, or vertebral point tenderness. No Meningismus. Chest/axilla: Normal chest wall appearance and motion. Nontender with no deformity. No lesions are appreciated. Cardiovascular: Regular rate and rhythm with a normal S1 and S2. No gallops, murmurs, or rubs. Normal PMI, no JVD. No pulse deficits. Respiratory: Lungs have equal breath sounds bilaterally, clear to auscultation and percussion. No rales, rhonchi or wheezes noted. No increased work of breathing, no retractions or nasal flaring. Abdomen/GI: Soft, non-tender, with normal bowel sounds. No distension or tympany. No guarding or rebound. No evidence of tenderness throughout. Back: No spinal tenderness. No costovertebral tenderness. Full range of motion. Skin: Warm, dry with normal turgor. Normal color with no rashes, no lesions, and no evidence of cellulitis. MS/ Extremity: Pulses equal, no cyanosis. Neurovascular intact. Full, normal range of motion. Neuro: Awake and alert, GCS 15, oriented to person, place, time, and situation. Cranial nerves II-XII grossly intact. Motor strength 5/5 in all extremities. Sensory grossly intact. Cerebellar exam normal. Normal gait. Psych: Awake, alert, with orientation to person, place and time. Behavior, mood, and affect are within normal limits. Vital Signs: 07:49 BP 141 / 84; Pulse 55; Resp 18; Temp 98; Pulse Ox 100% ; Weight 81.19 kg; Height 5 ft. db 6 in. ; 09:00 BP 123 / 67; Pulse 90; Resp 18; Pulse Ox 100% on R/A; db 10:00 BP 134 / 77; Pulse 92; Resp 18; Pulse Ox 100% on R/A; db 07:49 Body Mass Index 28.89 (81.19 kg, 167.64 cm) db MDM: 07:45 Medical Screening Exam initiated shawn 09:37 Differential diagnosis: threatened Ab. Data reviewed: vital signs, nurses notes, lab shawn test result(s), radiologic studies, ultrasound. Consideration of Admission/Observation Escalation of care including admission/observation considered. I considered the following discharge prescriptions or medication management in the emergency department Medications were administered in the Emergency Department. See MAR. Independent interpretation of the following test(s) in the Emergency Department Radiology Department Ultrasound: My interpretation is VAG PROBE USG. Test considered but Not performed: MRI: NO MRI PELVIS. Historians other than the Patient: Spouse/Significant Other: SPOUSE WELL INFORMED. Care significantly affected by the following chronic conditions: ,A1. Counseling: I had a detailed discussion with the patient and/or guardian regarding the historical points, exam findings, and any diagnostic results supporting the discharge/admit diagnosis, radiology results, the need for outpatient follow up, for definitive care, an OB/Gyne specialist. 03/07 07:41 Order name: Abo/rh Typing; Complete Time: 09:34 [facility] 03/07 07:41 Order name: Basic Metabolic Panel; Complete Time: 09:34 shawn 03/07 07:41 Order name: CBC with Diff; Complete Time: 09:02 [facility] 03/07 07:41 Order name: Test, Urine; Complete Time: 10:01 [facility] 03/07 07:41 Order name: Quantitative Hcg; Complete Time: 09:34 shawn 03/07 07:41 Order name: Urinalysis w/ reflexes; Complete Time: 10:01 shawn 03/07 09:54 Order name: Urine Culture [facility] 03/07 07:41 Order name: US Transvaginal Ob; Complete Time: 09:34 [facility] 03/07 07:41 Order name: IV Saline Lock; Complete Time: 08:53 shawn 03/07 07:41 Order name: Labs collected and sent; Complete Time: 08:53 [facility] 03/07 07:41 Order name: NPO; Complete Time: 08:53 shawn 03/07 09:43 Order name: Misc. Order: GET UA BEFORE DC; Complete Time: 09:57 shawn Administered Medications: 08:40 Drug: NS 0.9% IV 1000 ml IV at 1000 ml once; to be given as a bolus over 60 minutes db Route: IV; Rate: 1000 ml; Site: right antecubital; 09:45 Follow up: Response: No adverse reaction; IV Status: Completed infusion; IV Intake: db 1000ml 10:05 Drug: Rocephin IV 1 grams IV at per protocol once; Given slow IV push per pharmacy db instructions Route: IV; Rate: per protocol; Site: right antecubital; 10:21 Follow up: Response: No adverse reaction; IV Status: Completed infusion; IV Intake: 50mldb 10:05 Drug: Cefdinir PO 300 mg PO once Route: PO; db 10:21 Follow up: Response: No adverse reaction db Disposition Summary: 03/07/24 09:41 Discharge Ordered Notes: Location: Home shawn Problem: new shawn Symptoms: have improved shawn Condition: Stable shawn Diagnosis - Threatened shawn - Less than 8 weeks gestation of shawn - UTI/ Urinary tract infection, site not specified shawn Followup: shawn - With: Private Physician - When: 1 - 2 days - Reason: Recheck today's complaints, Continuance of care, Re-evaluation by your physician Discharge Instructions: - Discharge Summary Sheet shawn - Care shawn - Threatened Miscarriage shawn - Urinary Tract Infection, Adult shawn - Vaginal Bleeding During , First Trimester shawn - First Trimester of , [id number] shawn - Urinary Tract Infection, Adult, [id number] shawn - First Trimester of shawn - Threatened Miscarriage, Onnf-ft-[id number] shawn - Vaginal Bleeding During , First Trimester, [id number] shawn Forms: - Medication Reconciliation Form shawn - Antibiotic Education shawn - Prescription Opioid Use shawn - Patient Portal Instructions hsawn - Leadership Thank You Letter shawn Prescriptions: - cefdinir 300 mg Oral capsule - take 1 capsule ORAL route 2 times per day; 14 capsule; Refills: 0, Product shawn Selection Permitted Signatures: Dispatcher [employer] Deepak Nath MD MD cha Benton, Danielle RN RN db Corrections: (The following items were deleted from the chart) 07:50 07:50 Social history: Smoking status: unknown db db
[2024-03-07 09:43] LABS: Specific Gravity 1.007 (1.005-1.030)
[2024-03-07 09:47] LABS: Specific Gravity 1.007 (1.005-1.030); Sqamous Epithelial <5 /HPF (None Seen); Urine Bacteria <20 /HPF (<20); Urine Bilirubin NEGATIVE (Negative); Urine Blood 3+ (OVER) (Negative); Urine Clarity Extremely Turbid (Clear); Urine Color Colorless (Yellow); Urine Culture Reflex Order REFLEXED; Urine Glucose NEGATIVE (Negative); Urine Ketones NEGATIVE (Negative); Urine Microscopic Reflex YN ORDER UMIC; Urine Mucus Slight /HPF (None Seen); Urine Nitrite NEGATIVE (Negative); Urine Protein NEGATIVE (Negative); Urine Urobilinogen Normal (Normal); Urine WBC >50 /HPF (<5); Urine Yeast (Budding) Trace /HPF (None Seen); Urine pH 6.5 (5.0-7.0)
[2024-03-07] MEDS ORDERED: CEFTRIAXONE 1000 MG/VIAL ONE (10:04)
[2024-03-07] MEDS ORDERED: NA CHLORIDE 0.9% 50 ML ONE (10:04)
[2024-03-07] MEDS ORDERED: CEFDINIR 300 MG CAP PO ONE (10:04)
[2024-03-07 16:00] VITALS: TEMP 98; O2SAT 100
[2024-03-07 16:03] VITALS: BP 134/77
== END 2024-03-07 10:23 | disposition home or self-care (01) ==
LOC: ER 07:36
DX: O20.0 Threatened abortion (principal); O23.41 Unspecified infection of urinary tract in pregnancy, first trimester; N39.0 Urinary tract infection, site not specified; Z3A.01 Less than 8 weeks gestation of pregnancy
CPT/HCPCS: 87088; 85025; 81001; 87086; 80048; 36415; 86900; 81025; 86901; 84702; 76817; J7030; J0696